=== PATIENT | male | born 1955 | race Caucasian/White ===

== ENCOUNTER 2016-04-14 16:54 | Emergency (ER) | payer BC ==
[~2016-04-14] VITALS: Ht 180.3 cm; Wt 84.9 kg
[~2016-04-14 16:54] MED LIST: LISI-461 PO; PRLSR20 PO
[2016-04-14 17:00] VITALS: TEMP 36.8; Ht 180.3 cm; Wt 84.9 kg
[2016-04-14] MEDS ORDERED: SODIUM CHLORIDE 0.9% 500ML 500 ML IV STA (17:16)
[2016-04-14] MEDS ORDERED: COEN1CAP17 PO (17:19)
[2016-04-14] MEDS ORDERED: LPT/20 PO (17:19)
[2016-04-14] MEDS ORDERED: ASPI81TA28 PO (17:19)
--- NOTE | 2016-04-14 17:31 | EMERGENCY ROOM VISIT NOTE ---
History Report prepared by Shahida: Thai Lopez Under the Supervision of: Dr. Armando Hayes D.O. First contact with patient: 17:04 Chief Complaint: HYPERTENSION Stated Complaint: HIGH BLOOD PRESSURE,HEADACHE,HEAVY CHEST History of Present Illness The patient is a 61 year old male who presents to the Emergency Room with complaints of sudden hypertension beginning several hours prior to arrival. He currently rates his discomfort as a 3/10 in severity. The patient associates left sided chest pain, worsening headache, intermittent left elbow pain, bilateral arm weakness, intermittent pain in the back of his left leg, and lightheadedness with today's symptoms. The patient notes the chest pain began last evening, and worsens with pushing on it. Pain does not radiate anywhere else. The pain is on his left lateral chest wall. No shortness of breath with this pain. He states the headache began this morning and is located in his forehead and back of his neck. The patient notes his left elbow pain began around 1 PM, and worsens when lifted, such as driving or when flexing his arm. He states he took his blood pressure today at home on his wrist, and it was "200 -something over 100-something." The patient notes he has a history of hypertension but has been off of his medication for a year. He states he is a smoker, and has a history of hyperlipidemia. The patient denies previous heart disease and is unsure of his family history due to being adopted. He states he has not contacted his doctor about his symptoms. The patient denies recent trauma, twisting or turning abnormally, and denies worsening symptoms with changing positions. Pt denies change in vision, coughing up blood, recent surgeries, history of cancer, fevers, shortness of breath, nausea, vomiting, diarrhea, pain with urination, and melena. Source of History: patient Onset: several hours [employer]PRESENT[employer]IVE Position: other (global) Symptom Intensity: 3/10 Quality: other (hypertension) Timing: other (sudden) Associated Symptoms: + chest pain (left sided), + headache (worsening), + weakness (bilateral arms) Note: Associated symptoms: intermittent left elbow pain, intermittent pain in the back of his left leg, lightheadedness Review of Systems See HPI for pertinent positives & negatives. A total of 10 systems reviewed and were otherwise negative. Past Medical & Surgical Medical Problems: (1) Hyperlipidemia (2) Hypertension Family History Patient reports no known family medical history. Social History Smoking Status: Current Every Day Smoker Alcohol Use: occasionally Marital Status: Occupation Status: employed Current/Historical Medications Scheduled Aspirin (Aspirin Ec), 81 MG PO DAILY Atorvastatin (Atorvastatin Calcium), 20 MG PO HS Coenzyme Q10 (Ubidecarenone) (Co Q 10), 200 MG PO DAILY Omeprazole (Prilosec), 20 MG PO DAILY Allergies Coded Allergies: Tetanus Toxoid (Unverified Allergy, Severe, ANAPHYLAXIS, 04/14/16) Physical Exam Vital Signs Date Time Temp Pulse Resp B/P Pulse Ox O2 Delivery O2 Flow Rate FiO2 04/14/16 20:11 52 18 143/83 96 04/14/16 18:51 71 18 139/80 96 Room Air 04/14/16 17:55 63 123/74 99 62 149/88 135/79 04/14/16 17:48 55 04/14/16 17:36 97 Room Air 04/14/16 17:36 97 Room Air 04/14/16 17:00 36.8 63 20 151/93 96 Room Air Physical Exam GENERAL: siting up in bed, no acute distress, non-toxic EYE EXAM: normal conjunctiva, PERRL and EOM's intact OROPHARYNX: no exudate, no erythema, lips, buccal mucosa, and tongue normal and mucous membranes are moist NECK: supple, no nuchal rigidity, no adenopathy, non-tender LUNGS: Clear to auscultation. Normal chest wall mechanics HEART: no murmurs, S1 normal and S2 normal CHEST: Left chest wall tenderness in the mid axillary line. ABDOMEN: abdomen soft, non-tender, normo-active bowel sounds, no masses, no rebound or guarding. BACK: Back is symmetrical on inspection and there is no deformity, no midline tenderness, no CVA tenderness. SKIN: no rashes and no bruising UPPER EXTREMITIES: Left upper extremity has acute reproducible tenderness in the antecubital fossa, worsened with flexion. Rapid alternating movement of upper extremities are intact. Radial pulses equal bilaterally. LOWER EXTREMITIES: No pitting edema. Calves are equal bilaterally. Ambulates without difficulty. NEURO EXAM: Normal sensorium, cranial nerves II-XII intact, normal speech, no weakness of arms, no weakness of legs. No drift. Finger to nose intact. Gross sensation intact. Medical Decision & Procedures ER Provider Diagnostic Interpretation: Xray results per the radiologist and my interpretation. Other results have been interpreted by the radiologist and reviewed by me. SINGLE VIEW CHEST CLINICAL HISTORY: Weakness. FINDINGS: An AP, portable, upright chest radiograph is compared to study dated 05/04/2014. The heart is top normal for projection. There is pulmonary vascular congestion. After carotid calcification is noted in the thoracic aorta. Findings suggest emphysema. No airspace consolidation, large pleural effusion, or pneumothorax is seen. The skeletal structures are osteopenic. The bony thorax is grossly intact. IMPRESSION: 1. There is evidence of congestive failure. 2. Findings suggest emphysema. No airspace consolidation or large pleural effusion is identified. Electronically signed by: Luis Almeida M.D. 04/14/2016 5:[address] SCAN OF THE BRAIN WITHOUT IV CONTRAST CLINICAL HISTORY: Generalized weakness. COMPARISON STUDY: CT the brain dated 06/19/2013. TECHNIQUE: Unenhanced axial CT scan of the brain is performed from the vertex to the skull base. Automated dose control exposure was utilized. CT DOSE: 614.27 mGy.cm FINDINGS: Brain parenchyma: The brain parenchyma is normal in appearance. There is no hemorrhage, mass effect, or evidence of acute territorial ischemia by CT criteria. Zuluaga-white matter is preserved. No extra-axial fluid collection is seen. Ventricles, sulci, cisterns: Normal in configuration. Intracranial vasculature: The visualized intracranial vasculature at the skull base is normal in appearance. Calvarium: Unremarkable. Sinuses and mastoids: The visualized paranasal sinuses are clear. A small osteoma is incidentally noted in a left ethmoid sinus. The mastoid air cells are well pneumatized. Orbits: The bony orbits are grossly intact. IMPRESSION: There is no hemorrhage, mass effect, or evidence of acute territorial ischemia by CT criteria. Electronically signed by: Luis Almeida M.D. 04/14/2016 6:[address] ANGIOGRAM OF THE CHEST CLINICAL HISTORY: Left-sided chest pain. COMPARISON STUDY: Chest x-ray dated 04/14/2016. TECHNIQUE: Following the IV administration of 94 cc of Optiray 320, CT angiogram of the chest was performed from the upper abdomen to the thoracic inlet utilizing the pulmonary embolus protocol. Images are reviewed in the axial, sagittal, and coronal planes. 3-D MIPS images are created and assessed. IV contrast was administered without complication. CT DOSE: 528.20 mGycm FINDINGS: Thyroid: Imaged portions of the thyroid gland are normal in size and attenuation. Thoracic aorta: The thoracic aorta is normal in caliber and demonstrates standard 3-vessel arch anatomy. No aneurysm or dissection is seen. Pulmonary vasculature: The pulmonary trunk is normal in caliber. There are no filling defects identified in main, lobar, or segmental pulmonary branches to suggest pulmonary embolus. Heart: The heart is normal in size and configuration, and without pericardial effusion. Lungs and pleural spaces: There are moderate emphysematous changes. No airspace consolidation or pleural effusion is seen. Dependent atelectasis is observed. The trachea and central airways are clear. There are 2 nodular foci of pleural thickening in the right upper lobe along the major fissure measuring up to 7 mm seen on image #117 and #110. A 4 mm left lower lobe pulmonary nodule is seen on image #117. Mediastinum: There is no mediastinal lymphadenopathy. Nano: Clear. Axillae: There is no axillary lymphadenopathy. Upper abdomen: Partially visualized upper abdominal viscera is within normal limits. Skeletal structures: No lytic or blastic bony lesions are seen. Soft tissues: A 2.2 cm sebaceous cyst is noted in the right upper back. IMPRESSION: 1. There is no evidence of pulmonary embolus in the main, lobar, or segmental pulmonary arteries. 2. Emphysema. 3. There is no airspace consolidation or pleural effusion. 4. Pulmonary pleural-based nodules measure up to 7 mm. These can be followed as per the Fleischner criteria. Please refer to below summary of Fleischner criteria recommendations for follow-up of incidental CT nodules (Susi Barrett, Guidelines for management of small pulmonary nodules detected on CT scans: A statement from the Fleischner Society, Radiology 237: [phone].) Low Risk Patient: Minimal or no smoking or other known risk factors for malignancy <=4 mm: No follow-up needed. >4-6 mm: Initial follow-up CT at 12 months; if unchanged, no further follow-up. >6-8 mm: Initial follow-up CT at 6-12 months then at 18-24 months if no change. >8 mm: Follow-up CT at \\R\\3, 9, 24 months, or PET and/or biopsy. High Risk Patient: History of smoking or other known risk factors <=4 mm: Follow-up at 12 months; if unchanged, no further follow-up. >4-6 mm: Initial follow-up CT at 6-12 months then at 18-24 months if no change. >6-8 mm: Initial follow-up CT at 3-6 months then at 9-12 and 24 months if no change. >8 mm: Same as low risk patient. Note: Nodule size measured as average of length and width. Ground glass or partly solid nodules may require longer follow-up to exclude indolent adenocarcinoma. Electronically signed by: Luis Almeida M.D. 04/14/2016 7:27 PM Laboratory Results 04/14/16 17:40 Red Blood Count 5.44, Mean Corpuscular Volume 81.3, Mean Corpuscular Hemoglobin 29.4, Mean Corpuscular Hemoglobin Concent 36.2, Mean Platelet Volume 10.1, Neutrophils (%) (Auto) 79.0, Lymphocytes (%) (Auto) 12.8, Monocytes (%) (Auto) 6.8, Eosinophils (%) (Auto) 0.6, Basophils (%) (Auto) 0.3, Neutrophils # (Auto) 7.98, Lymphocytes # (Auto) 1.29, Monocytes # (Auto) 0.69, Eosinophils # (Auto) 0.06, Basophils # (Auto) 0.03 04/14/16 17:40 Test 04/14/16 17:40 04/14/16 18:10 White Blood Count 10.10 K/uL (4.8-10.8) Red Blood Count 5.44 M/uL (4.7-6.1) Hemoglobin 16.0 g/dL (14.0-18.0) Hematocrit 44.2 % (42-52) Mean Corpuscular Volume 81.3 fL (80-100) Mean Corpuscular Hemoglobin 29.4 pg (25-34) Mean Corpuscular Hemoglobin Concent 36.2 g/dl (32-36) Platelet Count 130 K/uL (130-400) Mean Platelet Volume 10.1 fL (7.4-10.4) Neutrophils (%) (Auto) 79.0 % Lymphocytes (%) (Auto) 12.8 % Monocytes (%) (Auto) 6.8 % Eosinophils (%) (Auto) 0.6 % Basophils (%) (Auto) 0.3 % Neutrophils # (Auto) 7.98 K/uL (1.4-6.5) Lymphocytes # (Auto) 1.29 K/uL (1.2-3.4) Monocytes # (Auto) 0.69 K/uL (0.11-0.59) Eosinophils # (Auto) 0.06 K/uL (0-0.5) Basophils # (Auto) 0.03 K/uL (0-0.2) RDW Standard Deviation 38.2 fL (36.4-46.3) RDW Coefficient of Variation 12.8 % (11.5-14.5) Immature Granulocyte % (Auto) 0.5 % Immature Granulocyte # (Auto) 0.05 K/uL (0.00-0.02) D-Dimer 570 ug/L FEU (0-500) Anion Gap 14.0 mmol/L (3-11) Est Creatinine Clear Calc Drug Dose 73.2 ml/min Estimated GFR () 82.4 Estimated GFR (Non- 71.1 BUN/Creatinine Ratio 18.4 (10-20) Bedside Glucose 84 mg/dl (70-99) Calcium Level 9.4 mg/dl (8.5-10.1) Total Bilirubin 0.5 mg/dl (0.2-1) Direct Bilirubin 0.1 mg/dl (0-0.2) Aspartate Amino Transf (AST/SGOT) 15 U/L (15-37) Alanine Aminotransferase (ALT/SGPT) 28 U/L (12-78) Alkaline Phosphatase 139 U/L (45-117) Troponin I < 0.015 ng/ml (0-0.045) Total Protein 6.9 gm/dl (6.4-8.2) Albumin 3.9 gm/dl (3.4-5.0) Urine Color YELLOW Urine Appearance CLEAR (CLEAR) Urine pH 5.5 (4.5-7.5) Urine Specific [place] 1.003 (1.000-1.030) Urine Protein NEG (NEG) Urine Glucose (UA) NEG (NEG) Urine Ketones NEG (NEG) Urine Occult Blood NEG (NEG) Urine Nitrite NEG (NEG) Urine Bilirubin NEG (NEG) Urine Urobilinogen NEG (NEG) Urine Leukocyte Esterase NEG (NEG) Laboratory results per my review. Medications Administered Medications (Trade) Dose Ordered Sig/Rick Route Start Time Stop Time Status Last Admin Dose Admin Sodium Chloride (Nss 500ml) 500 ml @ 999 mls/hr Q31M STAT IV 04/14/16 17:16 04/14/16 17:46 DC 04/14/16 17:16 999 MLS/HR ECG Indication: chest pain Rate (beats per minute): 57 Rhythm: sinus bradycardia Findings: left axis deviation, other (Poor baseline in the lateral) Comparison ECG Date: 06/11/2015 Change: no significant change ED Course ED COURSE: Vital signs were reviewed and showed hypertension. The patients medical record was reviewed The above diagnostic studies were performed and reviewed. ED treatments and interventions as stated above. 5: The patient was evaluated in room C7. A complete history and physical examination was performed. 1715: Ordered Sodium Chloride 500 ml @ 999 mls/hr IV. 1744: Reevaluated the patient at this time, and he is doing well. 1921: Reevaluated the patient at this time, and he is resting comfortably. 1951: Upon reevaluation, the patient is doing well.I discussed my findings with the patient and he understands and agrees with the treatment plan. Based on the patients age, coexisting illnesses, exam and lab findings the decision to treat as an outpatient was made. The patient remained stable while under my care. The patient appeared well at the time of discharge. Medical Decision Differenital diagnosis includes etiologies such as benign positional vertigo, dehydration, hypovolemia, anemia, tumor, infection, hypoglycemia, electrolyte abnormalities, cardiac sources, intracerebral event, toxicologic, neurologic, as well as others were entertained. Patient is a 61-year-old male who presents the ER for hypertension. He is checked his blood pressures at home and notes a systolic blood pressures were in the 200s. Patient also felt a little lightheaded and does have a sharp right -sided chest pain which is worse when he pushes on it. On exam he is clearly reproducible left-sided chest wall tenderness along with left antecubital tenderness on palpation. Labs including CBC and BMP are unremarkable. BMP along with LFTs and troponin were negative. Pain has been present for greater than 8 hours. It is clearly reproducible. EKG is unremarkable. This is not cardiac chest pain. D-dimer was positive inconstantly CT PE was performed. CT PE was negative for any acute PEs. It did show pulmonary nodule which I stressed the importance of following up within 6-9 months. Systolic blood pressure were in the 140s to 120s without intervention. Patient remained asymptomatic. He was given a bolus normal saline. Patient was discharged follow-up with his primary care doctor for his hypertension and pulmonary nodules. Discussed with Pt concerning signs and symptoms to watch out for. Pt was instructed to follow up with their PCP and discussed with the patient their option to return to the ED at anytime for persistent or worsening symptoms. The appropriate anticipatory guidance and out-patient management, including indications for return to the emergency department, were explained at length to the patient and understood. Impression Primary Impression: Hypertension Additional Impression: Pulmonary nodule Scribe Attestation The scribe's documentation has been prepared under my direction and personally reviewed by me in its entirety. I confirm that the note above accurately reflects all work, treatment, procedures, and medical decision making performed by me. Departure Information Dispostion Home / Self-Care Referrals Omar Paz M.D. (PCP) Forms HOME CARE DOCUMENTATION FORM, IMPORTANT VISIT INFORMATION, WORK / SCHOOL INSTRUCTIONS Patient Instructions ED Hypertension Poss, My [facility] Additional Instructions Please follow up with your primary care doctor with in the next 24 hours. Any worsening of your symptoms, please return to the ED immediately. This includes confusion, change in vision, weakness in your arms or legs, chest pain, shortness of breath or any other concerning signs or symptoms from your standpoint. You were found to have a lung nodule 7 mm. This must be followed up by your primary care doctor at 6 months. So following 6 months he will need a repeat CAT scan of your chest performed. Problem Qualifiers Primary Impression: Hypertension Hypertension type: essential hypertension Qualified Codes: I10 - Essential ( primary) hypertension
[2016-04-14 17:36] VITALS: O2SAT 97
--- NOTE | 2016-04-14 17:46 | DIAGNOSTIC IMAGING REPORT ---
SINGLE VIEW CHEST CLINICAL HISTORY: Weakness. FINDINGS: An AP, portable, upright chest radiograph is compared to study dated 05/04/2014. The heart is top normal for projection. There is pulmonary vascular congestion. After carotid calcification is noted in the thoracic aorta. Findings suggest emphysema. No airspace consolidation, large pleural effusion, or pneumothorax is seen. The skeletal structures are osteopenic. The bony thorax is grossly intact. IMPRESSION: 1. There is evidence of congestive failure. 2. Findings suggest emphysema. No airspace consolidation or large pleural effusion is identified. Electronically signed by: Luis Almeida M.D. 04/14/2016 5:44 PM Dictated Date/Time: 04/14/2016 5:43 PM
[2016-04-14 18:16] LABS: BASO % 0.3 %; BASO ABS # 0.03 K/uL (0-0.2); COMPLETE YES; EOS % 0.6 %; HEMATOCRIT 44.2 % (42-52); IG% 0.5 %; LYMPH % 12.8 %; LYMPH ABS # 1.29 K/uL (1.2-3.4); MEAN CELL VOLUME 81.3 fL (80-100); MEAN CORPUSCULAR HEMOGLOBIN 29.4 pg (25-34); MEAN CORPUSCULAR HGB CONC 36.2 g/dl (32-36); MEAN PLATELET VOLUME 10.1 fL (7.4-10.4); MONO % 6.8 %; PLATELET COUNT 130 K/uL (130-400); RED BLOOD COUNT 5.44 M/uL (4.7-6.1)
--- NOTE | 2016-04-14 18:24 | DIAGNOSTIC IMAGING REPORT ---
CT SCAN OF THE BRAIN WITHOUT IV CONTRAST CLINICAL HISTORY: Generalized weakness. COMPARISON STUDY: CT the brain dated 06/19/2013. TECHNIQUE: Unenhanced axial CT scan of the brain is performed from the vertex to the skull base. Automated dose control exposure was utilized. CT DOSE: 614.27 mGy.cm FINDINGS: Brain parenchyma: The brain parenchyma is normal in appearance. There is no hemorrhage, mass effect, or evidence of acute territorial ischemia by CT criteria. Zuluaga-white matter is preserved. No extra-axial fluid collection is seen. Ventricles, sulci, cisterns: Normal in configuration. Intracranial vasculature: The visualized intracranial vasculature at the skull base is normal in appearance. Calvarium: Unremarkable. Sinuses and mastoids: The visualized paranasal sinuses are clear. A small osteoma is incidentally noted in a left ethmoid sinus. The mastoid air cells are well pneumatized. Orbits: The bony orbits are grossly intact. IMPRESSION: There is no hemorrhage, mass effect, or evidence of acute territorial ischemia by CT criteria. Electronically signed by: Luis Almeida M.D. 04/14/2016 6:22 PM Dictated Date/Time: 04/14/2016 6:20 PM
[2016-04-14 18:28] LABS: URINE APPEARANCE CLEAR (CLEAR); URINE BILIRUBIN NEG (NEG); URINE COLOR YELLOW; URINE NITRITE NEG (NEG); URINE PH 5.5 (4.5-7.5); URINE SPECIFIC GRAVITY 1.003 (1.000-1.030); UROBILINOGEN NEG (NEG)
[2016-04-14 18:36] LABS: MANUAL MICROSCOPIC REQUIRED? NO; REVIEW REQ? NO
[2016-04-14 18:37] LABS: ALT/SGPT 28 U/L (12-78); BLOOD UREA NITROGEN 20 mg/dl (7-18); BUN/CREATININE RATIO 18.4 (10-20); CALCIUM 9.4 mg/dl (8.5-10.1); CARBON DIOXIDE 21 mmol/L (21-32); CHLORIDE 107 mmol/L (98-107); GLUCOSE 87 mg/dl (70-99); POTASSIUM 3.6 mmol/L (3.5-5.1); SODIUM 142 mmol/L (136-145)
[2016-04-14 18:42] LABS: ALKALINE PHOSPHATASE 139 U/L (45-117); AST/SGOT 15 U/L (15-37)
[2016-04-14] MEDS ORDERED: OPTIRAY 320 IV PRN (19:00)
--- NOTE | 2016-04-14 19:29 | DIAGNOSTIC IMAGING REPORT ---
CT ANGIOGRAM OF THE CHEST CLINICAL HISTORY: Left-sided chest pain. COMPARISON STUDY: Chest x-ray dated 04/14/2016. TECHNIQUE: Following the IV administration of 94 cc of Optiray 320, CT angiogram of the chest was performed from the upper abdomen to the thoracic inlet utilizing the pulmonary embolus protocol. Images are reviewed in the axial, sagittal, and coronal planes. 3-D MIPS images are created and assessed. IV contrast was administered without complication. CT DOSE: 528.20 mGycm FINDINGS: Thyroid: Imaged portions of the thyroid gland are normal in size and attenuation. Thoracic aorta: The thoracic aorta is normal in caliber and demonstrates standard 3-vessel arch anatomy. No aneurysm or dissection is seen. Pulmonary vasculature: The pulmonary trunk is normal in caliber. There are no filling defects identified in main, lobar, or segmental pulmonary branches to suggest pulmonary embolus. Heart: The heart is normal in size and configuration, and without pericardial effusion. Lungs and pleural spaces: There are moderate emphysematous changes. No airspace consolidation or pleural effusion is seen. Dependent atelectasis is observed. The trachea and central airways are clear. There are 2 nodular foci of pleural thickening in the right upper lobe along the major fissure measuring up to 7 mm seen on image #117 and #110. A 4 mm left lower lobe pulmonary nodule is seen on image #117. Mediastinum: There is no mediastinal lymphadenopathy. Nano: Clear. Axillae: There is no axillary lymphadenopathy. Upper abdomen: Partially visualized upper abdominal viscera is within normal limits. Skeletal structures: No lytic or blastic bony lesions are seen. Soft tissues: A 2.2 cm sebaceous cyst is noted in the right upper back. IMPRESSION: 1. There is no evidence of pulmonary embolus in the main, lobar, or segmental pulmonary arteries. 2. Emphysema. 3. There is no airspace consolidation or pleural effusion. 4. Pulmonary pleural-based nodules measure up to 7 mm. These can be followed as per the Fleischner criteria. Please refer to below summary of Fleischner criteria recommendations for follow-up of incidental CT nodules (Susi Barrett Guidelines for management of small pulmonary nodules detected on CT scans: A statement from the Fleischner Society, Radiology 237: [phone].) Low Risk Patient: Minimal or no smoking or other known risk factors for malignancy <=4 mm: No follow-up needed. >4-6 mm: Initial follow-up CT at 12 months; if unchanged, no further follow-up. >6-8 mm: Initial follow-up CT at 6-12 months then at 18-24 months if no change. >8 mm: Follow-up CT at \R\3, 9, 24 months, or PET and/or biopsy. High Risk Patient: History of smoking or other known risk factors <=4 mm: Follow-up at 12 months; if unchanged, no further follow-up. >4-6 mm: Initial follow-up CT at 6-12 months then at 18-24 months if no change. >6-8 mm: Initial follow-up CT at 3-6 months then at 9-12 and 24 months if no change. >8 mm: Same as low risk patient. Note: Nodule size measured as average of length and width. Ground glass or partly solid nodules may require longer follow-up to exclude indolent adenocarcinoma. Electronically signed by: Luis Almeida M.D. 04/14/2016 7:27 PM Dictated Date/Time: 04/14/2016 7:15 PM
[2016-04-14 20:11] VITALS: BP 143/83; PULSE 52; O2SAT 96
== END 2016-04-14 20:12 | disposition home or self-care (01) ==
LOC: C.EDB 16:56 → C.EDC 20:12
DX: I10 Essential (primary) hypertension (principal); R91.1 Solitary pulmonary nodule; R00.0 Tachycardia, unspecified; R00.1 Bradycardia, unspecified; E78.5 Hyperlipidemia, unspecified; F17.200 Nicotine dependence, unspecified, uncomplicated; Z79.82 Long term (current) use of aspirin; Z79.899 Other long term (current) drug therapy; Z88.8 Allergy status to other drugs, medicaments and biological substances

== ENCOUNTER → 2016-04-30 | Outpatient (CLI) | payer BC ==
[~2016-04-30] MED LIST changes: +ASPI81TA28 PO; +COEN1CAP17 PO; -LISI-461 PO; +LPT/20 PO
--- NOTE | 2016-05-04 19:06 | PULMONARY FUNCTION TEST ---
INTERPRETATION: The spirometry reveals mild to moderate obstruction with no significant change in the air flow with the use of albuterol. The lung volumes reveal an elevated residual volume suggesting air trapping in the diffusion capacity when corrected for alveolar volume is increased.
== END | disposition home or self-care (01) ==
LOC: C.RC 10:27
PROVIDERS: ATTEND Nurse Practitioner Family
DX: R06.02 Shortness of breath (principal); R91.8 Other nonspecific abnormal finding of lung field; R07.9 Chest pain, unspecified; Z72.0 Tobacco use

== ENCOUNTER → 2016-08-27 | Outpatient (CLI) | payer BC ==
--- NOTE | 2016-08-27 10:55 | DIAGNOSTIC IMAGING REPORT ---
CT OF THE CHEST WITHOUT IV CONTRAST CLINICAL HISTORY: MULTIPLE PULMONARY NODULES COMPARISON STUDY: 04/14/2016 CT DOSE: 346.51 mGy.cm TECHNIQUE: CT of the thorax was performed from the thoracic inlet to the lung bases. Images are reviewed in the axial, sagittal, and coronal planes. IV contrast was not administered for this examination. FINDINGS: Thyroid: Imaged portions of the thyroid gland are normal in appearance. Thoracic aorta: The thoracic aorta is normal in course and caliber, noting standard 3 vessel arch anatomy. Heart: The heart is normal in size and configuration, without pericardial effusion. Lungs and pleural spaces: No pleural effusions are visualized. There is underlying pulmonary emphysema. There are apical blebs most pronounced on the left. There are multiple bilateral subcentimeter solid pulmonary nodules, the largest of which remains a 7 x 4 mm perifissural right lower lobe nodule. Mediastinum: There is no mediastinal lymphadenopathy. Nano: Clear. Axilla: Clear. Upper abdomen: Partially visualized upper abdominal viscera is within normal limits. There is a stable 2 cm subcutaneous nodule posterior to the right scapula, likely representing a sebaceous cyst Skeletal structures: There are no lytic or blastic osseous lesions. IMPRESSION: 1. Pulmonary emphysema 2. No evidence of focal pulmonary consolidation 3. Stable multiple solid bilateral pulmonary nodules, the largest of which measures 7 x 4 mm. In a high risk patient, a 12 month follow-up CT scan could be considered. In a low risk patient, no follow-up is considered necessary. Please refer to below summary of Fleischner criteria recommendations for follow-up of incidental CT nodules (Susi Barrett, Guidelines for management of small pulmonary nodules detected on CT scans: A statement from the Fleischner Society, Radiology 237: [phone].) SOLID NODULES Solitary nodule size: <6 mm * low risk patients: no follow-up needed * high risk patients: optional CT at 12 months Solitary nodule size: 6-8 mm * low risk patients: follow-up at 6-12 months, then consider further follow-up at 18-24 months * high risk patients: initial follow-up CT at 6-12 months and then at 18-24 months if no change Solitary nodule size: >8 mm * either low or high risk patients - consider follow-up CT at 3 months, and/or CT-PET, and/or biopsy Multiple nodules size: <6 mm * low risk patients: no routine follow-up * high risk patients: optional CT at 12 months Multiple nodules size: 6-8 mm * low risk patients: follow-up at 3-6 months, then consider further follow-up at 18-24 months * high risk patients: follow-up at 3-6 months, then at 18-24 months if no change Multiple nodules size: >8 mm * low risk patients: follow-up at 3-6 months, then consider further follow-up at 18-24 months * high risk patients: follow-up at 3-6 months, then at 18-24 months if no change Note: newly detected indeterminate nodule in persons 35 years of age or older. * low risk patients: minimal or absent history of smoking and/or other known risk factors * high risk patients: history of smoking or of other known risk factors (e.g. first degree relative with lung cancer, or exposure to asbestos, radon, uranium) * if a nodule up to 8 mm is partly solid or is ground glass further follow-up is required after 24 months to exclude possible slow growing adenocarcinoma ([place]) SUBSOLID NODULES Solitary pure ground-glass nodule * nodule size <6 mm - no CT follow-up required * nodule size >=6 mm - follow-up CT at 6-12 months, then every 2 years until 5 years Solitary part-solid nodule * nodule size <6 mm - no CT follow-up required * nodule size >=6 mm - follow-up CT at 3-6 months. If unchanged, and solid component remains <6 mm, then annual follow-up for 5 years Multiple subsolid nodules * nodule size <6 mm - follow-up CT at 3-6 months, consider further follow-up at 2 and 4 years if stable * nodule size >=6 mm - follow-up CT at 3-6 months, subsequent management based on the most suspicious nodule(s) Electronically signed by: Dionicio Larose M.D. 08/27/2016 10:54 AM Dictated Date/Time: 08/27/2016 10:46 AM
== END | disposition home or self-care (01) ==
LOC: C.CTS 10:26
PROVIDERS: ATTEND Physician Assistant
DX: R91.8 Other nonspecific abnormal finding of lung field (principal); J43.9 Emphysema, unspecified

== ENCOUNTER → 2017-02-03 | Outpatient (CLI) | payer BC ==
--- NOTE | 2017-02-03 16:18 | DIAGNOSTIC IMAGING REPORT ---
CHEST 2 VIEWS ROUTINE HISTORY: 62 years-old Male R10.13,R22.9,R91.8 acute sternal pain with cough and history of lung nodules COMPARISON: Chest radiograph 04/14/2016, chest CT 08/27/2016 TECHNIQUE: PA and lateral views of the chest FINDINGS: Cardiomediastinal and hilar silhouettes are within normal limits. There is no pneumothorax, pleural effusion, focal airspace consolidation or overt pulmonary edema. Lungs are hyperinflated and hyperlucent compatible with emphysema. Degenerative changes are noted throughout the spine and shoulders. IMPRESSION: Emphysema without acute cardiopulmonary process. The above report was generated using voice recognition software. It may contain grammatical, syntax or spelling errors. Electronically signed by: Ton Bradley M.D. 02/03/2017 4:17 PM Dictated Date/Time: 02/03/2017 4:15 PM
== END | disposition home or self-care (01) ==
LOC: C.RAD1850 16:00
PROVIDERS: ATTEND Nurse Practitioner Family
DX: R10.13 Epigastric pain (principal); R91.8 Other nonspecific abnormal finding of lung field; J43.9 Emphysema, unspecified

== ENCOUNTER → 2017-02-05 | Outpatient (CLI) | payer BC ==
--- NOTE | 2017-02-05 14:53 | DIAGNOSTIC IMAGING REPORT ---
LEFT HAND 3 VIEWS HISTORY: LEFT HAND PAIN COMPARISON: None. FINDINGS: There is no fracture or dislocation. Soft tissues are unremarkable. Focal areas of cystic change within the lunate which may be due to chronic impaction. There is also a 5 mm lucent lesion within the base of the middle phalanx of the middle finger. This statistically represents a benign enchondroma. IMPRESSION: 1. No fracture or dislocation within the left hand. 2. A 5 mm lucent lesion within the middle phalanx of the middle finger likely represents an enchondroma. 3. Cystic change within the lunate may be due to chronic ulnar impaction. Electronically signed by: Sudarshan Kearns M.D. 02/05/2017 2:52 PM Dictated Date/Time: 02/05/2017 2:49 PM
== END | disposition home or self-care (01) ==
LOC: C.RDSM 17:19
PROVIDERS: ATTEND Family Medicine
DX: M79.642 Pain in left hand (principal)

== ENCOUNTER 2017-04-15 12:27 | Emergency (ER) | payer BC, OTHER ==
[~2017-04-15] VITALS: Ht 180.3 cm; Wt 86.6 kg
[~2017-04-15 12:27] MED LIST changes: -LPT/20 PO; +LPT20 PO
[2017-04-15 12:33] VITALS: O2SAT 97; Ht 180.3 cm; Wt 86.6 kg
[2017-04-15 13:00] LABS: HEMATOCRIT 47.8 % (42-52); HEMOGLOBIN 16.6 g/dL (14.0-18.0); MEAN CELL VOLUME 85.2 fL (80-100); MEAN CORPUSCULAR HEMOGLOBIN 29.6 pg (25-34); MEAN CORPUSCULAR HGB CONC 34.7 g/dl (32-36); MEAN PLATELET VOLUME 10.8 fL (7.4-10.4); PLATELET COUNT 136 K/uL (130-400); RED CELL DISTRIBUTION WIDTH CV 13.8 % (11.5-14.5); RED CELL DISTRIBUTION WIDTH SD 42.3 fL (36.4-46.3); WHITE BLOOD COUNT 7.68 K/uL (4.8-10.8)
[2017-04-15 13:07] LABS: INR 0.9 (0.9-1.1); PTT PATIENT 27.8 SECONDS (21.0-31.0)
[2017-04-15 13:15] LABS: ALBUMIN 4.1 gm/dl (3.4-5.0); CREATININE 1.15 mg/dl (0.60-1.40)
[2017-04-15 13:20] LABS: CKMB 2.8 ng/ml (0.5-3.6); TOTAL PROTEIN 7.5 gm/dl (6.4-8.2)
--- NOTE | 2017-04-15 13:24 | EMERGENCY ROOM VISIT NOTE ---
History Report prepared by Shahida: Anant Uriostegui Under the Supervision of: Dr. Yusuf Donaldson M.D. First contact with patient: 13:05 Chief Complaint: CHEST PAIN Stated Complaint: CHEST PAIN Nursing Triage Summary: pt presents to ed via [facility] from pcp office. pt reports he has had chest pain since yesterday and "felt funny all night i wasn't sure if i was going to wake up or not." pt reports left shoulder and arm numbness. pt reports at present his mid chest feels "sore." pt recieved 324mg asa en route. History of Present Illness The patient is a 62 year old male who presents to the Emergency Room with complaints of upper chest discomfort that began one day prior to arrival. The patient notes that he visited with his primary care physician today because he was feeling "funny" and generally unwell. He was referred to the Emergency Room for further management. He describes his symptoms yesterday as "tingling all over," weakness, and dizziness. He notes that his chest discomfort felt like a "tightness." He is experiencing this tightness today. His symptoms are worsened by walking around, and improved by sitting and relaxing. He states that he has had several episodes of this tingling and chest tightness over the past year. He came to the ED in March or 2016 for similar symptoms and had a follow up Stress Test performed. He has never been diagnosed with any cardiac disease. The patient did have some back pain yesterday, and notes some intermittent shortness of breath. He shoveled his drive way yesterday and did not have any chest pain or SOB while he was active. He claims that he has some issues beginning to void, but this is not unusual. He was on Flomax in the past. He has no history of hypertension. He denies any further LOC, headache, fevers, chills, diaphoresis, visual changes, neck pain, nausea, vomiting, abdominal pain, melena, hematochezia, urinary symptoms, lymphadenopathy, rash, or other complaints. Source of History: patient Onset: One day [employer] Position: chest Quality: other ("tigthness") Associated Symptoms: + back pain Note: "tingling" Review of Systems See HPI for pertinent positives and negatives. A total of ten systems were reviewed and were otherwise negative. Past Medical & Surgical Medical Problems: (1) Hyperlipidemia (2) Hypertension Family History Patient reports no known family medical history. Social History Smoking Status: Former Smoker Alcohol Use: occasionally Marital Status: Occupation Status: employed Current/Historical Medications Scheduled Aspirin (Aspirin Ec), 81 MG PO DAILY Atorvastatin (Lipitor), 20 MG PO HS Coenzyme Q10 (Ubidecarenone) (Co Q 10), 200 MG PO DAILY Omeprazole (Prilosec), 20 MG PO DAILY Allergies Coded Allergies: Tetanus Toxoid (Unverified Allergy, Severe, ANAPHYLAXIS, 04/15/17) Physical Exam Vital Signs Date Time Temp Pulse Resp B/P (MAP) Pulse Ox O2 Delivery O2 Flow Rate FiO2 04/15/17 17:17 36.9 54 17 122/74 96 04/15/17 15:32 54 17 96 04/15/17 15:30 122/74 04/15/17 15:27 52 17 96 04/15/17 15:22 50 17 96 04/15/17 15:17 50 17 96 04/15/17 15:12 51 19 95 04/15/17 15:07 56 15 96 04/15/17 15:04 49 16 128/67 95 Room Air 04/15/17 15:02 52 17 96 04/15/17 15:00 128/67 04/15/17 14:57 53 20 96 04/15/17 14:52 60 16 95 04/15/17 14:47 52 19 96 04/15/17 14:42 50 17 96 04/15/17 14:37 51 18 96 04/15/17 14:32 53 16 97 04/15/17 14:30 127/75 04/15/17 14:27 51 17 96 04/15/17 14:22 51 17 95 04/15/17 14:17 56 16 96 04/15/17 14:12 49 13 95 04/15/17 14:07 46 10 96 04/15/17 14:04 49 16 117/75 96 Room Air 04/15/17 14:02 48 13 95 04/15/17 14:00 117/75 04/15/17 13:57 50 13 95 04/15/17 13:52 49 15 96 04/15/17 13:47 50 16 95 04/15/17 13:42 53 16 96 04/15/17 13:37 53 18 96 04/15/17 13:32 53 20 95 04/15/17 13:30 128/86 04/15/17 13:27 54 17 98 04/15/17 13:22 57 18 96 04/15/17 13:17 56 21 95 04/15/17 13:12 52 17 94 04/15/17 13:07 61 18 95 04/15/17 13:02 53 17 94 04/15/17 13:01 129/77 04/15/17 12:57 53 18 95 04/15/17 12:52 53 17 95 04/15/17 12:47 56 15 96 04/15/17 12:44 53 04/15/17 12:42 52 21 96 04/15/17 12:33 97 Room Air 04/15/17 12:33 159/78 04/15/17 12:33 36.9 57 16 154/83 97 Room Air Physical Exam GENERAL: Awake, alert, well-appearing, in no distress HENT: Normocephalic, atraumatic. Oropharynx unremarkable. EYES: Normal conjunctiva. Sclera non-icteric. NECK: Supple. No nuchal rigidity. FROM. No JVD. RESPIRATORY: Clear to auscultation. CARDIAC: There is TTP in the upper mid chest and over the left ribs. Regular rate, normal rhythm. Extremities warm and well perfused. Pulses equal. ABDOMEN: Soft, non-distended. Tenderness to palpation over the left ribs. No rebound or guarding. No masses. RECTAL: Deferred. MUSCULOSKELETAL: Chest examination reveals no tenderness. The back is symmetrical on inspection without obvious abnormality. There is no CVA tenderness to palpation. No joint edema. LOWER EXTREMITIES: Calves are equal size bilaterally and non-tender. No edema. No discoloration. NEURO: Normal sensorium. No sensory or motor deficits noted. SKIN: No rash or jaundice noted. Medical Decision & Procedures ER Provider Diagnostic Interpretation: Radiology results as stated below per my review and radiologist interpretation: CHEST ONE VIEW PORTABLE CLINICAL HISTORY: chest pain c03 dyspnea COMPARISON STUDY: 02/03/2017 FINDINGS: The bones soft tissues and hemidiaphragms are normal. The cardiomediastinal silhouette is normal. The lungs are clear. The pulmonary vasculature is normal. IMPRESSION: Negative chest. The above report was generated using voice recognition software. It may contain grammatical, syntax or spelling errors. Electronically signed by: Ender Pena M.D. 04/15/2017 1:40 PM Dictated Date/Time: 04/15/2017 1:39 PM Laboratory Results 04/15/17 12:40 04/15/17 12:40 Test 04/15/17 12:40 04/15/17 12:46 Red Blood Count 5.61 M/uL (4.7-6.1) Mean Corpuscular Volume 85.2 fL (80-100) Mean Corpuscular Hemoglobin 29.6 pg (25-34) Mean Corpuscular Hemoglobin Concent 34.7 g/dl (32-36) RDW Standard Deviation 42.3 fL (36.4-46.3) RDW Coefficient of Variation 13.8 % (11.5-14.5) Mean Platelet Volume 10.8 fL (7.4-10.4) Prothrombin Time 9.9 SECONDS (9.0-12.0) Prothromb Time International Ratio 0.9 (0.9-1.1) Activated Partial Thromboplast Time 27.8 SECONDS (21.0-31.0) Partial Thromboplastin Ratio 1.1 Anion Gap 5.0 mmol/L (3-11) Est Creatinine Clear Calc Drug Dose 69.1 ml/min Estimated GFR () 77.5 Estimated GFR (Non- 66.9 BUN/Creatinine Ratio 17.4 (10-20) Calcium Level 9.0 mg/dl (8.5-10.1) Total Bilirubin 0.7 mg/dl (0.2-1) Aspartate Amino Transf (AST/SGOT) 19 U/L (15-37) Alanine Aminotransferase (ALT/SGPT) 26 U/L (12-78) Alkaline Phosphatase 136 U/L (45-117) Total Creatine Kinase 143 U/L (39-308) Creatine Kinase MB 2.8 ng/ml (0.5-3.6) Creatine Kinase MB Ratio 2.0 (0-3.0) Total Protein 7.5 gm/dl (6.4-8.2) Albumin 4.1 gm/dl (3.4-5.0) Globulin 3.4 gm/dl (2.5-4.0) Albumin/Globulin Ratio 1.2 (0.9-2) Bedside Troponin I < 0.030 ng/ml (0-0.045) Laboratory results reviewed by me ECG Indication: chest pain Rate (beats per minute): 54 Rhythm: sinus bradycardia Findings: no acute ischemic change, no ectopy Change: Patient's electrocardiogram reading per my interpretation. ED Course 1314: The patient was evaluated in room C3. A complete history and physical exam was performed. 1509: I discussed the case with Dr. Gates - [facility] at this time. He will look at his study findings to this point. 1520: Dr. Gates will take the patient to have a stress test now. 1654: The patient has returned from his stress test, he is back in the room and feeling well. 1705: I reevaluated the patient. Discussed results and discharge instructions: He verbalized understanding and agreement. The patient is ready for discharge. Medical Decision Prior records/ancillary studies reviewed. Triage Nursing notes reviewed and agree them. The patient's history was concerning for chest pain, arm discomfort, and weakness. Differential diagnosis: Etiologies such as cardiac ischemia, atypical chest pain, aortic dissection, pulmonary embolism, pneumonia, pneumothorax, musculoskeletal, infections, pericarditis, myocarditis, esophageal rupture, gastrointestinal, as well as others were entertained. Physical examination: As above. ER treatment provided: No medication given On reassessment the patient felt better. Diagnostic interpretation by me: The electrocardiogram was negative for pathologic change. The labs revealed an unremarkable CBC and chemistry panel. Cardiac markers negative. Repeat troponin negative. Imaging studies: Chest x-ray as above Consultation: A consultation was placed with cardiology. The case was discussed and diagnostics were reviewed. Patient has stress test performed and this was negative. The patient had vague chest symptoms. He is doing well this time. He did have some reproducible tenderness. He does note having done a lot of shoveling and exertion but did not have pain with this exertion. Musculoskeletal source is possible given the history. It is reproducible. By the evaluation outlined above emergent etiologies such as cardiac ischemia, aortic dissection, pulmonary embolism, pneumonia, pneumothorax, infections, pericarditis, myocarditis, gastrointestinal, as well as others were deemed relatively unlikely. The patient was informed about the findings as listed above. All questions were answered and he was pleased with the treatment. Return instructions were outlined and the patient was discharged in stable condition. Referral: The patient was referred back to his primary care physician for follow-up in 2 to 3 days for a recheck of the current condition. Consults Time Called: 1500 Consulting Physician: Dr. Kody [facility] Returned Call: 1509 I discussed the case with Dr. Kody [facility] at this time. He will look at his study findings to this point. Impression Primary Impression: Left sided chest pain Additional Impression: Generalized weakness Scribe Attestation The scribe's documentation has been prepared under my direction and personally reviewed by me in its entirety. I confirm that the note above accurately reflects all work, treatment, procedures, and medical decision making performed by me. Departure Information Dispostion Being Evaluated By Hospitalist Referrals Mari Quick (PCP) Forms Call Back Authorization, HOME CARE DOCUMENTATION FORM, IMPORTANT VISIT INFORMATION Patient Instructions My [facility] Additional Instructions CHEST PAIN INSTRUCTIONS: Ibuprofen(Motrin, Advil) may be used for fever or pain. Use 600mg every six hours as needed. Take with food. Avoid using more than 2400mg in a 24 hour period. Do not use 2400mg per day for more than three consecutive days without physician direction. Prolonged inappropriate use can lead to stomach upset or ulcers. (AND/OR) Acetaminophen(Tylenol) may be used for fever or pain. Use 1000mg every six hours as needed. Avoid using more than 4000mg in a 24 hour period. Rest and drink plenty of fluids as tolerated. Continue current medications. Avoid strenuous activities and anything that worsens your pain. Resume normal activities once your symptoms resolve. Return to the ER immediately for worsening or persistent chest pain, abdominal pain, vomiting, fevers, chest pains, difficulty breathing, worsening of your condition, or as needed. Follow up with your primary physician in 1-2 days for a recheck of your current condition. Problem Qualifiers
--- NOTE | 2017-04-15 13:41 | DIAGNOSTIC IMAGING REPORT ---
CHEST ONE VIEW PORTABLE CLINICAL HISTORY: chest pain c03 dyspnea COMPARISON STUDY: 02/03/2017 FINDINGS: The bones soft tissues and hemidiaphragms are normal. The cardiomediastinal silhouette is normal. The lungs are clear. The pulmonary vasculature is normal. IMPRESSION: Negative chest. The above report was generated using voice recognition software. It may contain grammatical, syntax or spelling errors. Electronically signed by: Ender Pena M.D. 04/15/2017 1:40 PM Dictated Date/Time: 04/15/2017 1:39 PM
[2017-04-15 17:17] VITALS: BP 122/74; PULSE 54; TEMP 36.9; O2SAT 96
--- NOTE | 2017-04-15 17:36 | EXERCISE STRESS ECHO ---
*NOTICE TO RECEIVING [employer]PUBL[employer] AG[employer]Y This information is strictly Confidential and protected under [place] law. [place] law prohibits you from making any further disclosure of this information unless further disclosure is expressly permitted by the written consent of the person to whom it pertains or is authorized by law. A general authorization for the release of medical or other information is not sufficient for this purpose. Hospital accepts no responsibility if the information is made available to any other person, INCLUDING THE PATIENT. Interpretation Summary * Name: ARELI LEBRON Study Date: 04/15/2017 03:22 PM BP: 115/78 mmHg * Patient Location: [facility] HR: 68 * : 1955 (M/d/yyyy) Gender: Male Height: 70 in * Age: 62 yrs Ethnicity: [place] Weight: 190 lb * Ordering Physician: Yusuf Donaldson * Referring Physician: Self, Referred * Performed By: Kyra Mcknight RDCS * * Reason For Study: Chest Pain * BSA: 2.0 m2 * -- Conclusions -- * Diagnostic stress echocardiography without evidence of inducible ischemia Procedure Details * ECHOEX, CPT #61335 Left Ventricular Findings with Stress * Diagnostic stress echocardiography without evidence of inducible ischemia Stress Parameters * Normal baseline electrocardiogram. * Stress ECG: No ST changes. No arrhythmias. * The stress portion of this study was personally supervised by the undersigned interpreting physician. * Rest heart rate was '68' BPM. * Rest blood pressure was '115/78' * Maximum heart rate achieved was 134 bpm. * Maximum heart rate was 85 % of maximum age-predicted heart rate. * Maximum blood pressure was '206/70' * Total exercise time was '08:01' * Maximum exercise MET level achieved was '10.10' METS * Maximum treadmill speed was '3.40' miles per hour. * Maximum treadmill elevation was '14.00'% grade. Left Ventricular Findings with Stress * The baseline EKG was normal There were no significant ST or T-wave changes noted during exercise or recovery There was normal heart rate and blood pressure response to exercise Baseline echocardiographic images demonstrated preserved LV systolic function with normal wall motion There was normal augmentation of all segments without development of wall motion abnormalities at peak exertion Bermudez treadmill score: 8 (low risk) No symptoms of chest pain reported during the test
== END 2017-04-15 17:19 | disposition home or self-care (01) ==
LOC: EDBD 12:27 → C.EDC 12:29
DX: R07.9 Chest pain, unspecified (principal); R53.1 Weakness; E78.5 Hyperlipidemia, unspecified; I10 Essential (primary) hypertension; Z87.891 Personal history of nicotine dependence; Z79.82 Long term (current) use of aspirin; Z79.899 Other long term (current) drug therapy

== ENCOUNTER → 2017-07-27 | Outpatient (CLI) | payer OTHER ==
--- NOTE | 2017-07-27 09:50 | DIAGNOSTIC IMAGING REPORT ---
(CHEST) THORAX WITHOUT CLINICAL HISTORY: 62 years-old Male presenting with R91.8 multiple pulmonary nodules. TECHNIQUE: Multidetector CT imaging of the chest was performed without the use of intravenous contrast. IV contrast: None. A dose lowering technique was used consistent with the principles of ALARA (as low as reasonably achievable). COMPARISON: 08/27/2016 and 04/14/2016. CT DOSE (mGy.cm): The estimated cumulative dose is 366.69 mGy.cm. FINDINGS: [employer] topogram: Unremarkable. On soft tissue windows, normal thyroid and thoracic inlet. Persistent subcutaneous centrally hypodense nodule in the right posterior back intimately associated with the cutis (series 4 image 84), likely sebaceous cyst. No axillary, supraclavicular, or mediastinal lymphadenopathy. Evaluation of the odin limited without intravenous contrast. Normal aorta. Normal heart size. Coronary artery calcification. No pericardial or pleural effusion. Upper abdomen normal. On lung windows, moderate apical predominant centrilobular and paraseptal emphysematous changes. Solid 7 mm fissural nodule in the right middle/upper lobe (series 4 image 166), unchanged. Adjacent solid 6 mm fissural nodule in the right lower lobe (series 4 image 174), unchanged. Solid peripheral 4 mm nodule in the left lower lobe (series 4 image 162), unchanged. No new nodule. Central airways patent. On bone windows, normal osseous structures. IMPRESSION: 1. Multiple stable solid bilateral pulmonary nodules measuring up to 7 mm. These have remained stable since March 2016, which represents 16 months of stability. No new pulmonary nodule. 2. Emphysema. Please refer to below summary of Fleischner Society 2017 recommendations for follow-up of incidental CT nodules (H Nena et al. Guidelines for management of incidental pulmonary nodules detected on CT images: From the Fleischner Society 2017. Radiology 2017; 284: 228-243.) SOLID NODULES Single nodule; size < 6 mm * Low risk patients: No routine follow-up * High risk patients: Optional CT at 12 months Single nodule; size 6-8 mm * Low risk patients: CT at 6-12 months, then consider CT at 18-24 months * High risk patients: CT at 6-12 months, then at 18-24 months Single nodule; size > 8 mm * Either low or high risk patients: Considered CT at 3 months, PET/CT, or tissue sampling Multiple nodules; size < 6 mm * Low risk patients: No routine follow up * High risk patients: Optional CT at 12 months Multiple nodules; size 6-8 mm * Low risk patients: CT at 3-6 months, then consider CT at 18-24 months * High risk patients: CT at 3-6 months, then at 18-24 months Multiple nodules; size > 8 mm * Low risk patients: CT at 3-6 months, then consider at 18-24 months * High risk patients: CT at 3-6 months, then at 18-24 months SUBSOLID NODULES Single ground-glass nodule * Nodule size < 6 mm: No routine follow-up * Nodule size > or = 6 mm: CT at 6-12 months to confirm persistence, then CT every 2 years until 5 years Single part-solid nodule * Nodule size < 6 mm: No routine follow-up * Nodules size > or = 6 mm: CT at 3-6 months to confirm persistence. If unchanged and solid component remains < 6 mm, annual CT should be performed for 5 years Multiple nodules * Nodule size < 6 mm: CT at 3-6 months. If stable, consider CT at 2 and 4 years. * Nodules size > or = 6 mm: CT at 3-6 months. Subsequent management based on the most suspicious nodule(s) NOTE: 1) These guidelines apply to incidental nodules. These guidelines do NOT apply to patients younger than 35 years, immunocompromised patients, or patients with cancer. 2) Risk categories: * Low risk patients: Minimal or absent history of smoking and/or other known risk factors * High risk patients: History of smoking, exposure to other carcinogens, emphysema, fibrosis, upper lobe location, family history of lung cancer, etc. 3) If a nodule up to 8 mm is partly solid or is ground glass, further follow-up is required after 24 months to exclude possible slow growing adenocarcinoma. Electronically signed by: Garcia Olivera M.D. 07/27/2017 9:48 AM Dictated Date/Time: 07/27/2017 9:39 AM
== END | disposition home or self-care (01) ==
LOC: C.CTS 09:14
PROVIDERS: ATTEND Physician Assistant
DX: R91.8 Other nonspecific abnormal finding of lung field (principal); J43.9 Emphysema, unspecified

== ENCOUNTER → 2017-07-28 | Outpatient (CLI) | payer OTHER ==
--- NOTE | 2017-07-28 20:04 | DIAGNOSTIC IMAGING REPORT ---
CT SCAN OF THE ABDOMEN AND PELVIS WITHOUT IV CONTRAST CLINICAL HISTORY: Right lower quadrant abdominal pain. COMPARISON STUDY: Abdominal CT dated 11/19/2009. TECHNIQUE: CT scan of the abdomen and pelvis is performed from the lung bases to the proximal femora. Images are reviewed in the axial, sagittal, and coronal planes. IV contrast was not administered for this examination as per the referring clinician. Note that the examination is suboptimal without IV contrast. Oral contrast was utilized. A dose lowering technique was utilized adhering to the principles of ALARA. CT DOSE: 854.37 mGycm FINDINGS: Lung bases: The heart is normal in size and without pericardial effusion. Emphysematous change is suggested. No airspace consolidation or pleural effusion is identified. There is minimal bibasilar atelectasis. A 2 mm pulmonary nodule at the right lung base seen on image #37 is unchanged dating back to 2009 and of doubtful significance. Liver: The unenhanced liver is normal in size, contour, and attenuation. There is no intrahepatic biliary ductal dilatation. Gallbladder: Unremarkable. Spleen: Normal in size and attenuation. Pancreas: The unenhanced pancreas is grossly unremarkable. Adrenal glands: Unremarkable. Kidneys: The unenhanced kidneys are normal in size and without hydronephrosis. There are no renal calculi identified. Small parapelvic cysts are suggested on the left. There is no evidence of contour deforming renal mass lesion. Abdominal vasculature: The abdominal aorta is normal in course and caliber noting moderate atherosclerotic calcification. Bowel: There is mild to moderate colonic fecal retention. No bowel obstruction is seen. The appendix is well-visualized and normal. Peritoneum: There is no intraperitoneal free air or abdominal ascites. There is a fat-containing umbilical hernia. Lymphadenopathy: None. Pelvic viscera: The bladder is decompressed and grossly unremarkable. The prostate and seminal vesicles are normal as visualized. Skeletal structures: No lytic or blastic lesions are seen. Small lucencies in the bony pelvis are unchanged dating back to 2009 and of doubtful significance. IMPRESSION: There are no acute infectious or inflammatory findings in the abdomen or pelvis. Electronically signed by: Luis Almeida M.D. 07/28/2017 8:02 PM Dictated Date/Time: 07/28/2017 7:57 PM
== END | disposition home or self-care (01) ==
LOC: C.CTS 16:56
PROVIDERS: ATTEND Family Medicine
DX: R10.31 Right lower quadrant pain (principal)

== ENCOUNTER 2020-04-30 20:33 | Observation (INO) ==
[2020-04-30] MEDS ORDERED: SODIUM CHLORIDE 0.9% 1000ML 500 ML IV ONE (20:48)
[2020-04-30] MEDS ORDERED: dilTIAZem HCl 5 MG/ML 5 ML VIAL IV ONE (20:48)
[2020-04-30] MEDS ORDERED: SODIUM CHLORIDE 0.9% 1000ML 1,000 ML IV STA (20:48)
[2020-04-30] MEDS ORDERED: STAT IV Infusion **Titration per Protocol STA (20:54)
[2020-04-30 20:56] LABS: Basophils # (auto) 0.02 K/uL (0-0.2); Basophils % (auto) 0.1 %; Eosinophils # (auto) 0.04 K/uL (0-0.5); Eosinophils % (auto) 0.3 %; Hematocrit (blood only) 48.1 % (42-52); Hemoglobin 17.4 g/dL (14.0-18.0); Immature Granulocytes # (auto) 0.03 K/uL (0.00-0.02); Immature Granulocytes % (auto) 0.2 %; Lymphocytes # (auto) 1.58 K/uL (1.2-3.4); Mean Corpuscular Hemoglobin 30.3 pg (25-34); Mean Corpuscular Hgb Conc 36.2 g/dL (32-36); Mean Corpuscular Volume 83.8 fL (80-100); Mean Platelet Volume 10.7 fL (7.4-10.4); Monocytes # (auto) 1.29 K/uL (0.11-0.59); Monocytes % (auto) 8.2 %; Neutrophils # (auto) 12.78 K/uL (1.4-6.5); Neutrophils % (auto) 81.2 %; Platelet Count 157 K/uL (130-400); RDW Coefficient of Variation 13.2 % (11.5-14.5); RDW Standard Deviation 39.3 fL (36.4-46.3); Red Blood Count 5.74 M/uL (4.7-6.1); White Blood Count 15.74 K/uL (4.8-10.8)
[2020-04-30] MEDS ORDERED: dilTIAZem HCL 125 MG in DEXTROSE 5% 100 ML IV SCH (21:00)
--- NOTE | 2020-04-30 21:08 | Emergency Department Note ---
Impression & Plan Atrial fibrillation with rapid ventricular response ED Provider Note INFORMANT: Patient ED PROVIDER(S): Yusuf Donaldson MD CHIEF COMPLAINT: Abdominal pain PLAN: Disposition: Admitted Condition: Good Outpatient prescription management: none Referral: None MEDICAL DECISION MAKING: Patient presented with complaints of abdominal pain. He was noted to be tachycardic. ECG was performed and showed A. fib with rapid ventricular response. An IV was established. He was given a fluid bolus and 10 mg of IV Cardizem. An IV Cardizem drip was initiated. The patient has a mild leukocytosis. His chemistry panel was unremarkable. The troponin was negative. The patient underwent CT scan of the abdomen pelvis because of the abdominal pain and leukocytosis. No acute findings were noted. He required a titration upward of his Cardizem drip. The patient will need further management in the hospital. Consultation was made with Dr. James Mendoza of the [facility] service. Patient was evaluated in the ER for further management. Triage Nursing notes reviewed and agree them. Vital Signs: reviewed and remarkable for tachycardia Differential diagnosis: Cardiac ischemia, aortic dissection, pulmonary embolism, pneumothorax, pneumonia, pericarditis, myocarditis, esophageal rupture, GERD, cholecystitis, pancreatitis, musculoskeletal, as well as other pathologies. Diagnostics interpreted by me: ECG: Twelve-lead ECG reveals atrial fibrillation with rapid ventricular response at 142 bpm. Left axis deviation. Nonspecific ST abnormality. No ST elevation. No PVCs. Normal QRS. Cardiac Monitoring:Cardiac monitoring ordered by me: The patient was placed on continuous cardiac monitoring and observed. It revealed a atrial fibrillation at 166 beats per minute without ectopy. Imaging studies: Chest x-ray. Findings: A chest x-ray was performed and revealed no pneumothorax, effusion, infiltrate, pulmonary edema, free air under the diaphragm, or wide mediastinum. Impression: No acute disease. CT scan of the abdomen pelvis was negative. I refer you to the EMR for further details. HPI: The patient is a 65 year old male who presents to the Emergency Room with complaints of epigastric abdominal pain. This started this evening after shoveling snow and is persisting. The patient also notes the following associated symptoms, lightheadedness, substernal chest pain, and minimal shortness of breath. The patient has taken no medication for relieving factors. Current pain is rated as 7/10. Pt denies LOC, headache, fevers, chills, diaphoresis, visual changes, neck pain, nausea, vomiting, back pain, melena, hematochezia, urinary symptoms, numbness, weakness, lymphadenopathy, rash, or other complaints. ROS: See above HPI for pertinent positives & negatives. A total of 10 systems reviewed and were otherwise negative. PAST MEDICAL HISTORY:See Below , high cholesterol PAST SURGICAL HISTORY:See Below, patient denies FAMILY HISTORY:See Below SOCIAL HISTORY:See Below, chews tobacco, former smoker HOME MEDICATIONS:See Below ALLERGIES:See Below VITALS:See Below PHYSICAL EXAMINATION: GENERAL: Awake, alert, well-appearing, in no distress HENT: Normocephalic, atraumatic. Oropharynx unremarkable. EYES: Normal conjunctiva. Sclera non-icteric. NECK: Inspection normal. Non-tender. Supple. No nuchal rigidity. FROM. No masses. RESPIRATORY: Clear to auscultation. No wheezes. No rales. Normal respiratory effort. CARDIAC: Very tachycardic rate. Irregular rhythm. No murmurs. No rubs. Extremities warm and well perfused. Pulses equal. No JVD. GI: Soft, non-distended. Minimal epigastric tenderness to palpation. No rebound or guarding. No masses. RECTAL: Deferred. MUSCULOSKELETAL: Atraumatic. Chest examination reveals no tenderness. The back is symmetrical on inspection without obvious abnormality. There is no CVA tenderness to palpation. No joint edema. LOWER EXTREMITIES: Calves are equal size bilaterally and non-tender. No edema. No discoloration. NEURO: Normal sensorium. No sensory or motor deficits noted. SKIN: No rash or jaundice noted. ED COURSE: Critical Care: I have personally spent greater than 35 minutes of critical care time in the direct management of this patient. This includes bedside care, interpretation of diagnostic studies, and testing, discussion with consultants, patient, and other required patient management activities. These minutes are in excess of all separately billable procedures. Yusuf Donaldson MD Past Med/Surg History Social History Smoking Status: Former smoker Tobacco Type: Cigarettes Cigarettes Per Day: 10; Feels Safe at Home: Yes Allergies Allergies Allergy/AdvReac Type Severity Reaction Status Date / Time tetanus toxoid, adsorbed Allergy Severe ANAPHYLAXIS Verified 04/30/20 21:04 Home Meds Home Medications Medication Instructions Recorded Confirmed aspirin 81 mg PO QAM 04/30/20 04/30/20 atorvastatin 20 mg PO QAM 04/30/20 04/30/20 multivitamin 1 tab PO QAM 04/30/20 04/30/20 omeprazole 20 mg PO QAM 04/30/20 04/30/20 Results & Data (ED) Vital Signs Vital Signs - 24 hr 04/30/20 20:35 04/30/20 21:16 04/30/20 22:11 Temperature 37.1 C Temperature Source Temporal Artery Scan Pulse Rate 140 H Pulse Rate [Right] 114 H 132 H Pulse Rhythm [Right] Irregular Irregular Pulse Strength [Right] Normal Normal Respiratory Rate 20 16 16 Respiratory Effort / Characteristics Non-Labored Spontaneous Non-Labored Spontaneous Respiratory Depth Normal Normal Normal Blood Pressure 141/95 H Blood Pressure [Right Arm] 118/73 141/81 H Blood Pressure Mean 110 Blood Pressure Mean [Right Arm] 88 101 Blood Pressure Position [Right Arm] Sitting Lying Pulse Oximetry 95 96 99 Oxygen Delivery Method Room Air Room Air Room Air Sepsis Recent Fever Within 48 Hours No Sepsis New/Unexplained Change in Mental Status No Sepsis Action Taken by Nursing No Action Required 04/30/20 22:38 Temperature Temperature Source Pulse Rate Pulse Rate [Right] 87 Pulse Rhythm [Right] Irregular Pulse Strength [Right] Normal Respiratory Rate 16 Respiratory Effort / Characteristics Non-Labored Spontaneous Respiratory Depth Normal Blood Pressure Blood Pressure [Right Arm] 113/91 Blood Pressure Mean Blood Pressure Mean [Right Arm] 98 Blood Pressure Position [Right Arm] Lying Pulse Oximetry 98 Oxygen Delivery Method Room Air Sepsis Recent Fever Within 48 Hours Sepsis New/Unexplained Change in Mental Status Sepsis Action Taken by Nursing Laboratory Data Result diagrams: 04/30/20 20:46 04/30/20 21:36 Lab Results 04/30/20 04/30/20 04/30/20 Range/Units 20:46 20:46 20:47 WBC 15.74 H (4.8-10.8) K/uL RBC 5.74 (4.7-6.1) M/uL Hgb 17.4 (14.0-18.0) g/dL Hct 48.1 (42-52) % MCV 83.8 (80-100) fL MCH 30.3 (25-34) pg MCHC 36.2 H (32-36) g/dL RDW Std Deviation 39.3 (36.4-46.3) fL RDW Coeff of Zay 13.2 (11.5-14.5) % Plt Count 157 (130-400) K/uL MPV 10.7 H (7.4-10.4) fL Immature Gran % (Auto) 0.2 % Neut % (Auto) 81.2 % Lymph % (Auto) 10.0 % Robertson % (Auto) 8.2 % Eos % (Auto) 0.3 % Baso % (Auto) 0.1 % Neut # (Auto) 12.78 H (1.4-6.5) K/uL Lymph # (Auto) 1.58 (1.2-3.4) K/uL Robertson # (Auto) 1.29 H (0.11-0.59) K/uL Eos # (Auto) 0.04 (0-0.5) K/uL Baso # (Auto) 0.02 (0-0.2) K/uL Immature Gran # (Auto) 0.03 H (0.00-0.02) K/uL Sodium 141 (136-145) mmol/L Potassium (3.5-5.1) mmol/L Chloride 107 (98-107) mmol/L Carbon Dioxide 25 (21-32) mmol/L Anion Gap 9.0 (3-11) BUN 27 H (7-18) mg/dl Creatinine 1.50 H (0.6-1.4) mg/dl Est Cr Clr Drug Dosing 56.1 ml/min Est GFR ( Amer) 55.0 Est GFR (Non-Af Amer) 47.5 BUN/Creatinine Ratio 18.1 (10-20) Glucose 101 H (70-99) mg/dl Calcium 9.7 (8.5-10.1) mg/dl Magnesium (1.8-2.4) mg/dl Total Bilirubin 1.6 H (0.2-1) mg/dl AST (15-37) U/L ALT 27 (12-78) U/L Alkaline Phosphatase 145 H (45-117) U/L Troponin I < 0.015 (0-0.045) ng/ml Total Protein 7.6 (6.4-8.2) gm/dl Albumin 4.2 (3.4-5.0) gm/dl Globulin 3.4 (2.5-4.0) gm/dl Albumin/Globulin Ratio 1.3 (0.9-2) TSH 1.180 (0.300-4.500) uIu/ml COVID-19 Eval [facility] SARS-CoV-2, RNA, NAAT (NEGATIVE) 04/30/20 04/30/20 Range/Units 20:47 21:36 WBC (4.8-10.8) K/uL RBC (4.7-6.1) M/uL Hgb (14.0-18.0) g/dL Hct (42-52) % MCV (80-100) fL MCH (25-34) pg MCHC (32-36) g/dL RDW Std Deviation (36.4-46.3) fL RDW Coeff of Zay (11.5-14.5) % Plt Count (130-400) K/uL MPV (7.4-10.4) fL Immature Gran % (Auto) % Neut % (Auto) % Lymph % (Auto) % Robertson % (Auto) % Eos % (Auto) % Baso % (Auto) % Neut # (Auto) (1.4-6.5) K/uL Lymph # (Auto) (1.2-3.4) K/uL Robertson # (Auto) (0.11-0.59) K/uL Eos # (Auto) (0-0.5) K/uL Baso # (Auto) (0-0.2) K/uL Immature Gran # (Auto) (0.00-0.02) K/uL Sodium (136-145) mmol/L Potassium 3.8 (3.5-5.1) mmol/L Chloride (98-107) mmol/L Carbon Dioxide (21-32) mmol/L Anion Gap (3-11) BUN (7-18) mg/dl Creatinine (0.6-1.4) mg/dl Est Cr Clr Drug Dosing ml/min Est GFR ( Amer) Est GFR (Non-Af Amer) BUN/Creatinine Ratio (10-20) Glucose (70-99) mg/dl Calcium (8.5-10.1) mg/dl Magnesium 2.0 (1.8-2.4) mg/dl Total Bilirubin (0.2-1) mg/dl AST 24 (15-37) U/L ALT (12-78) U/L Alkaline Phosphatase (45-117) U/L Troponin I (0-0.045) ng/ml Total Protein (6.4-8.2) gm/dl Albumin (3.4-5.0) gm/dl Globulin (2.5-4.0) gm/dl Albumin/Globulin Ratio (0.9-2) TSH (0.300-4.500) uIu/ml COVID-19 Eval Order SARS-CoV-2, RNA, NAAT NEGATIVE (NEGATIVE) Administered Medications Sodium Chloride (Nss 1000ml) 1,000 mls @ 125 mls/hr IV .Q8H STA Stop: 05/01/20 04:47 Last Admin: 04/30/20 20:50 Dose: 125 mls/hr Documented by: [id number] Discontinued Medications Diltiazem HCl (Diltiazem Hcl 5 Mg/Ml 5 Ml Vial) Confirm Administered Dose 25 mg IV .STK-MED ONE Stop: 04/30/20 20:49 Last Increment: 04/30/20 20:50 Dose: 10 mg Documented by: [id number] Cosigned by: [id number] Sodium Chloride (Nss 1000ml) 500 mls @ 999 mls/hr IV .Q31M ONE Stop: 04/30/20 21:18 Last Infusion: 04/30/20 21:21 Dose: 0 mls/hr Documented by: [id number] Admin: 04/30/20 20:50 Dose: 999 mls/hr Documented by: [id number] Diltiazem HCl 125 mg/ Dextrose 125 mls @ 5 mls/hr IV .Q24H [facility]; Protocol Stop: 05/30/20 20:59 Last Titration: 04/30/20 22:09 Dose: 10 mg/hr, 10 mls/hr Documented by: [id number] Cosigned by: [id number] Admin: 04/30/20 21:14 Dose: 5 mg/hr, 5 mls/hr Documented by: [id number] Cosigned by: [id number] Miscellaneous (Stat Iv Infusion Titration Per Protocol) 1 ea N/A NOW STA Stop: 04/30/20 20:55 Last Admin: 04/30/20 21:16 Dose: 1 ea Documented by: [id number] Discharge Plan Visit Data Chief Complaint: Abdominal Pain Stated Complaint: ABD PAIN ED Provider: Yusuf Donaldson Discharge Problem: Atrial fibrillation with rapid ventricular response Forms Stand Alone Forms: My [facility] Prescriptions Prescriptions: No Action multivitamin Tablet 1 tab PO QAM RF: 0 atorvastatin 20 mg tablet 20 mg PO QAM RF: 0 aspirin 81 mg Tablet,Delayed Release (Dr/Ec) 81 mg PO QAM RF: 0 omeprazole 20 mg capsule,delayed release(DR/EC) 20 mg PO QAM RF: 0
[2020-04-30 21:30] LABS: Alanine Aminotransferase 27 U/L (12-78); Albumin Globulin Ratio 1.3 (0.9-2); Albumin Level 4.2 gm/dl (3.4-5.0); Alkaline Phosphatase 145 U/L (45-117); BUN Creatinine Ratio 18.1 (10-20); Bilirubin,Total 1.6 mg/dl (0.2-1); Blood Urea Nitrogen 27 mg/dl (7-18); Calcium 9.7 mg/dl (8.5-10.1); Carbon Dioxide 25 mmol/L (21-32); Chloride 107 mmol/L (98-107); Creatinine Clr Calc Pharmacy 56.1 ml/min; Est GFR (Non-African American) 47.5; Globulin 3.4 gm/dl (2.5-4.0); Glucose 101 mg/dl (70-99); Sodium 141 mmol/L (136-145); Total Protein 7.6 gm/dl (6.4-8.2); Troponin I < 0.015 ng/ml (0-0.045)
[2020-04-30 21:57] LABS: Potassium 3.8 mmol/L (3.5-5.1)
[2020-04-30] MEDS ORDERED: dilTIAZem HCL 30 MG TAB PO ONE (22:37)
[2020-05-01] MEDS ORDERED: ONDANSETRON INJ 2 MG/ML 2 ML VIAL IV PRN (00:20)
[2020-05-01] MEDS ORDERED: NITROGLYCERIN SL 0.4 MG/TAB TAB SL PRN (00:20)
[2020-05-01] MEDS ORDERED: dilTIAZem HCl 5 MG/ML 5 ML VIAL IV PRN (00:20)
[2020-05-01] MEDS ORDERED: ACETAMINOPHEN 325 MG TAB PO PRN (00:20)
[2020-05-01] MEDS: SODIUM CHLORIDE 0.9% 1000ML 1,000 ML IV SCH ×2 (00:30→08:44)
[2020-05-01] MEDS ORDERED: PNEUMOCOCCAL Polysaccharide Vaccine 25mcg/0.5mL vial/Syr IM ONE (01:15)
--- NOTE | 2020-05-01 03:05 | History & Physical Report ---
Date of Service May 01, 2020 The patient was seen and examined on 04/30/2020 Assessment & Plan (1) Atrial fibrillation with rapid ventricular response: Atrial fibrillation with RVR/hypertension- The patient will be admitted to telemetry for serial cardiac enzymes, serial EKG's, cardiac rhythm monitoring and a 2-D echocardiogram with Dopplers. Continue aspirin 81 mg daily Placing on Cardizem 30 mg p.o. every 6 hours, and discontinue Cardizem drip as noted. Can convert to Cardizem CD in the a.m. if rate control is controlled as expected. Consult cardiology Present on Admission?: Yes (2) Hypertension: See above Present on Admission?: Yes (3) GERD (gastroesophageal reflux disease): Change omeprazole to pantoprazole per formulary interchange Present on Admission?: Yes (4) Hyperlipidemia: Continue atorvastatin 20 mg daily Present on Admission?: Yes (5) Acute kidney injury: Creatinine 1.50 upon admission, with most recent 1.22- Received total 1500 mL in the ED. Recheck laboratories in a.m. Present on Admission?: Yes (6) Xiphoid pain: Part of his pain is reproducible, and is likely secondary to xiphisternal pain due to shoveling snow. Present on Admission?: Yes Admission and Anticipated Discharge Date Admission Date: April 30, 2020 History of Present Illness Chief Complaint: The patient presents to the emergency department with complaint of epigastric and subxiphoid pain that began earlier in the day after shoveling snow. Primary Care Provider: NATHALY Guillen The patient is a 65-year-old male with a past medical history including hypertension, hyperlipidemia, GERD and pulmonary nodule. He was shoveling snow this morning, when shortly thereafter he developed discomfort over his xiphoid process area, and felt lightheaded. When he presented to the emergency department he was found to have increased heart rate, and EKG at that time showed a new diagnosis of atrial fibrillation with RVR. He received Cardizem 25 mg IV and then was started on a Cardizem drip at 5 mg/h by the ED. He was then placed on Cardizem 30 mg p.o. x1 by hi, with Cardizem drip stopped 1 hour later, and will be continued on Cardizem 30 mg p.o. every 6 hours, with breakthrough Cardizem 10 mg IV every 4 hours as needed for heart rate greater than 110 Allergies Allergy/AdvReac Type Severity Reaction Status Date / Time tetanus toxoid, adsorbed Allergy Severe ANAPHYLAXIS Verified 04/30/20 21:04 Home Medications Medication Instructions Recorded Confirmed Type aspirin 81 mg PO QAM 04/30/20 04/30/20 History atorvastatin 20 mg PO QAM 04/30/20 04/30/20 History multivitamin 1 tab PO QAM 04/30/20 04/30/20 History omeprazole 20 mg PO QAM 04/30/20 04/30/20 History Past Med/Surg History Medical History (Updated 05/01/20 @ 04:36 by James Mendoza MD) GERD (gastroesophageal reflux disease) Hyperlipidemia Hypertension Pulmonary nodule Social History Smoking Status: Former smoker Tobacco Type: Cigarettes Cigarettes Per Day: 10; Do You Dip or Chew Tobacco: Yes; Hx Alcohol Use: No Hx Substance Use: No Beliefs That Will Affect Care: None Current Living Situation: Family Other Information That Helps Us Care for You: No Feels Safe at Home: Yes Safety Concerns: Feels Safe At This Time Assistive Devices: Glasses Review of Systems Review of Systems: The patient denies palpitations, cough, lower extremity swelling, sore throat, fevers, chills, sweats, nausea, vomiting, diarrhea , constipation, abdominal pain, pelvic pain, blood in urine or stool, dysuria, urinary frequency or urgency, headache, memory loss, loss of consciousness, rash, abnormal bruising or bleeding, imbalance, focal or generalized weakness, numbness or tingling in arms or legs, generalized arthralgias or myalgias, back or neck pain, or night sweats. The review of systems is otherwise negative other than for that already noted above, and at least 10 systems have been reviewed. Physical Exam Physical Exam: The patient is awake, alert and oriented 3, well developed and well nourished, normocephalic and atraumatic, lying in bed and in no acute distress. HEENT--PERRL, EOMI, mucous membranes and oropharynx dry. Neck--supple. No JVD. No bruits. Thyroid normal, trachea midline, no adenopathy. Heart--tachycardic, irregularly irregular. No murmurs, rubs or gallops. Lungs--clear bilaterally, no respiratory distress, no accessory muscle use. Abdomen--normal bowel sounds and soft. Nontender. Nondistended, no hernias or masses, no organomegaly. Extremities--no cyanosis or clubbing. No edema. Dermatologic--normal skin turgor, normal color, no abnormal lymph nodes, no rash. Neurologic--cranial nerves II through XII grossly intact. Rheumatologic--normal range of motion. Psychiatric--normal affect. Results & Data Results & Data ([facility]) Vital Signs (Past 12 Hours) Vital Signs Temp Pulse Pulse Resp BP BP Pulse Ox 05/01/20 00:20 90 04/30/20 23:53 97.9 F 85 18 122/81 95 04/30/20 23:30 78 19 115/71 94 04/30/20 23:20 81 18 95 04/30/20 23:10 94 H 18 95 04/30/20 23:00 94 H 21 134/77 97 04/30/20 22:50 94 H 18 96 04/30/20 22:40 117 H 17 95 04/30/20 22:38 87 16 113/91 98 04/30/20 22:30 126 H 21 113/91 97 04/30/20 22:20 113 H 17 96 04/30/20 22:11 132 H 16 141/81 H 99 04/30/20 22:10 137 H 20 96 04/30/20 22:06 167 H 22 04/30/20 22:04 107 H 18 141/90 H 04/30/20 21:40 109 H 21 97 04/30/20 21:30 104 H 14 123/81 97 04/30/20 21:20 95 H 15 97 04/30/20 21:16 114 H 16 118/73 96 04/30/20 21:14 102 H 17 118/73 95 04/30/20 21:10 108 H 15 94 04/30/20 21:01 109 H 23 95/74 L 96 04/30/20 21:00 105 H 14 95 04/30/20 20:51 137 H 25 H 96 04/30/20 20:46 137 H 24 117/93 96 04/30/20 20:35 98.8 F 140 H 20 141/95 H 95 Laboratory Results Laboratory Results WBC 15.74 K/uL (4.8-10.8) H 04/30/20 20:46 RBC 5.74 M/uL (4.7-6.1) 04/30/20 20:46 Hgb 17.4 g/dL (14.0-18.0) 04/30/20 20:46 Hct 48.1 % (42-52) 04/30/20 20:46 MCV 83.8 fL (80-100) 04/30/20 20:46 MCH 30.3 pg (25-34) 04/30/20 20:46 MCHC 36.2 g/dL (32-36) H 04/30/20 20:46 RDW Std Deviation 39.3 fL (36.4-46.3) 04/30/20 20:46 RDW Coeff of Zay 13.2 % (11.5-14.5) 04/30/20 20:46 Plt Count 157 K/uL (130-400) 04/30/20 20:46 MPV 10.7 fL (7.4-10.4) H 04/30/20 20:46 Immature Gran % (Auto) 0.2 % 04/30/20 20:46 Neut % (Auto) 81.2 % 04/30/20 20:46 Lymph % (Auto) 10.0 % 04/30/20 20:46 Custer % (Auto) 8.2 % 04/30/20 20:46 Eos % (Auto) 0.3 % 04/30/20 20:46 Baso % (Auto) 0.1 % 04/30/20 20:46 Neut # (Auto) 12.78 K/uL (1.4-6.5) H 04/30/20 20:46 Lymph # (Auto) 1.58 K/uL (1.2-3.4) 04/30/20 20:46 Custer # (Auto) 1.29 K/uL (0.11-0.59) H 04/30/20 20:46 Eos # (Auto) 0.04 K/uL (0-0.5) 04/30/20 20:46 Baso # (Auto) 0.02 K/uL (0-0.2) 04/30/20 20:46 Immature Gran # (Auto) 0.03 K/uL (0.00-0.02) H 04/30/20 20:46 Sodium 141 mmol/L (136-145) 04/30/20 20:46 Potassium 3.8 mmol/L (3.5-5.1) 04/30/20 21:36 Chloride 107 mmol/L (98-107) 04/30/20 20:46 Carbon Dioxide 25 mmol/L (21-32) 04/30/20 20:46 Anion Gap 9.0 (3-11) 04/30/20 20:46 BUN 27 mg/dl (7-18) H 04/30/20 20:46 Creatinine 1.50 mg/dl (0.6-1.4) H 04/30/20 20:46 Est Cr Clr Drug Dosing 56.1 ml/min 04/30/20 20:46 Est GFR ( Amer) 55.0 04/30/20 20:46 Est GFR (Non-Af Amer) 47.5 04/30/20 20:46 BUN/Creatinine Ratio 18.1 (10-20) 04/30/20 20:46 Glucose 101 mg/dl (70-99) H 04/30/20 20:46 Calcium 9.7 mg/dl (8.5-10.1) 04/30/20 20:46 Magnesium 2.0 mg/dl (1.8-2.4) 04/30/20 21:36 Total Bilirubin 1.6 mg/dl (0.2-1) H 04/30/20 20:46 AST 24 U/L (15-37) 04/30/20 21:36 ALT 27 U/L (12-78) 04/30/20 20:46 Alkaline Phosphatase 145 U/L (45-117) H 04/30/20 20:46 Troponin I < 0.015 ng/ml (0-0.045) 04/30/20 20:46 Total Protein 7.6 gm/dl (6.4-8.2) 04/30/20 20:46 Albumin 4.2 gm/dl (3.4-5.0) 04/30/20 20:46 Globulin 3.4 gm/dl (2.5-4.0) 04/30/20 20:46 Albumin/Globulin Ratio 1.3 (0.9-2) 04/30/20 20:46 TSH 1.180 uIu/ml (0.300-4.500) 02/02/21 20:46 COVID-19 Eval Order Covid19 [facility] 04/30/20 20:47 SARS-CoV-2, RNA, NAAT NEGATIVE (NEGATIVE) 04/30/20 20:47 Diagnostic Findings Accession Numbers: [id number] Preliminary Findings Only See Final Report For Complete Findings CT ABDOMEN & PELVIS Without Contrast: No radiodense gallstones or pancreatitis. The kidneys are within normal limits. No evidence of colitis. Unremarkable appendix. Nonobstructive bowel gas pattern. Radiologist: Eric Hassan M.D. Study ready at 22:08 and initial results transmitted at 22:12 *This report constitutes a preliminary interpretation only. Non-acute findings felt to be unrelated to the clinical presentation may not be discussed in this report. The study will be interpreted and a final report will be generated by the local Radiologist the following shift. To reach the hospital radiology department call [phone]. If a discrepancy is found between the preliminary and final interpretations of this study, please notify us via our Client Portal at [email or web address], under QA Exams.You can also fax this report with a description of the discrepancy, or include the final report, to our daytime fax number [phone].If faxing, please indicate the severity of discrepancy using one of the following categories: [ ] 1 - Agree/Informational [ ] 2 - Unlikely to Affect Management [ ] 3 - Possible Eventual Change of Management [ ] 4 - Probable Immediate Change of Management For all other patient related information, please fax us at [phone]. [id number] Code Status & VTE Plan Code Status Full code VTE Prophylaxis Plan VTE Prophylaxis will be ordered: Yes PG Care Time/CCT Total # of Minutes Spent Total Time Spent with Patient: Total time spent is greater than 50% in coordination of care (as documented) at patient's floor/unit and/or counseling patient: Coding Level of Care Code 79652 OBS Care - Level 3 Diagnoses Atrial fibrillation with rapid ventricular response I48.91 Hypertension I10 GERD (gastroesophageal reflux disease) K21.9 Hyperlipidemia E78.5 Acute kidney injury N17.9 Xiphoid pain R07.89
[2020-05-01] MEDS ORDERED: dilTIAZem HCL 30 MG TAB PO SCH (05:00)
[2020-05-01 05:53] LABS: Basophils # (auto) 0.03 K/uL (0-0.2); Basophils % (auto) 0.4 %; Eosinophils # (auto) 0.14 K/uL (0-0.5); Eosinophils % (auto) 1.7 %; Hematocrit (blood only) 42.9 % (42-52); Hemoglobin 14.9 g/dL (14.0-18.0); Immature Granulocytes # (auto) 0.01 K/uL (0.00-0.02); Immature Granulocytes % (auto) 0.1 %; Lymphocytes # (auto) 1.65 K/uL (1.2-3.4); Lymphocytes % (auto) 20.5 %; Mean Corpuscular Hemoglobin 29.6 pg (25-34); Mean Corpuscular Hgb Conc 34.7 g/dL (32-36); Mean Corpuscular Volume 85.1 fL (80-100); Mean Platelet Volume 10.8 fL (7.4-10.4); Monocytes # (auto) 0.89 K/uL (0.11-0.59); Monocytes % (auto) 11.1 %; Neutrophils # (auto) 5.32 K/uL (1.4-6.5); Neutrophils % (auto) 66.2 %; Platelet Count 147 K/uL (130-400); RDW Coefficient of Variation 13.3 % (11.5-14.5); RDW Standard Deviation 40.9 fL (36.4-46.3); Red Blood Count 5.04 M/uL (4.7-6.1); White Blood Count 8.04 K/uL (4.8-10.8)
[2020-05-01 06:39] LABS: Alanine Aminotransferase 22 U/L (12-78); Albumin Globulin Ratio 1.2 (0.9-2); Albumin Level 3.2 gm/dl (3.4-5.0); Alkaline Phosphatase 118 U/L (45-117); Aspartate Aminotransferase 26 U/L (15-37); BUN Creatinine Ratio 18.8 (10-20); Bilirubin,Total 1.1 mg/dl (0.2-1); Blood Urea Nitrogen 25 mg/dl (7-18); Calcium 8.1 mg/dl (8.5-10.1); Carbon Dioxide 27 mmol/L (21-32); Chloride 115 mmol/L (98-107); Creatinine Clr Calc Pharmacy 63.1 ml/min; Est GFR (African American) 64.2; Est GFR (Non-African American) 55.4; Globulin 2.7 gm/dl (2.5-4.0); Glucose 97 mg/dl (70-99); Magnesium 2.1 mg/dl (1.8-2.4); Potassium 3.8 mmol/L (3.5-5.1); Sodium 145 mmol/L (136-145); Total Protein 5.9 gm/dl (6.4-8.2); Troponin I < 0.015 ng/ml (0-0.045)
--- NOTE | 2020-05-01 07:45 | CT Scan Report ---
ABDOMEN AND PELVIS CT WITHOUT CONTRAST CT DOSE: 665.71 mGy.cm HISTORY: epigastric pain, elevated WBC. rapid afib TECHNIQUE: Multiaxial CT images of the abdomen and pelvis were performed without contrast. A dose lo wering technique was utilized adhering to the principles of ALARA. COMPARISON STUDY: Abdomen and pelvis CT 05/04 S 19. FINDINGS: Stable 3 mm nodule within the right lower lobe on image 28. This is likely benign. Question able small lucent lesions seen scattered throughout the visualized spine and pelvic bones. Dominant l ucent lesion within the right iliac bone on image 235 measures 8 mm. These remain unchanged compared to 2009 examination. The unenhanced liver, gallbladder, pancreas, spleen, adrenal glands, and right kidney are within normal limits. No renal or ureteral stones. No hydronephrosis. There are few small left peripelvic renal cysts, unchanged. Normal bladder. No pelvic free fluid. No retroperitoneal lym phadenopathy. Mild calcified plaque within the normal caliber abdominal aorta. Suboptimal evaluation for bowel pathology due to the lack of intravenous and oral contrast. However, there is no definite b owel wall thickening or obstruction. A few colonic diverticula. No evidence for acute diverticulitis. Normal appendix. IMPRESSION: 1. No renal or ureteral stones. No hydronephrosis. 2. No CT evidence for acute pancreatitis. 3. No definite bowel wall thickening or obstruction. 4. Normal appendix. 5. Scattered small lucent lesions within the spine and pelvis remain stable dating back to 2009 and a re therefore of doubtful clinical significance. ACT 112: Negative or not required by law. Electronically signed by: Sudarshan Kearns M.D. 05/01/2020 7:44 AM
--- NOTE | 2020-05-01 08:05 | XRay Report ---
XR chest 1V portable HISTORY: Atypical chest pain COMPARISON: Chest 04/15/2017. FINDINGS: The cardiac silhouette is normal in size. No pleural effusions. No pneumothorax. Mild diffu se interstitial thickening, unchanged. This is likely chronic. No new focal lung consolidations to sahu ggest pneumonia. No evidence for pulmonary edema. IMPRESSION: No significant change compared to the prior study. No acute process. ACT 112: Negative or not required by law. Electronically signed by: Sudarshan Kearns M.D. 05/01/2020 8:04 AM
[2020-05-01 08:25] LABS: Estimated Average Glucose 111 mg/dl; Hemoglobin A1C 5.5 % (4.5-5.6)
[2020-05-01] MEDS ORDERED: MULTIVITAMIN TAB PO SCH (09:00)
[2020-05-01] MEDS ORDERED: ATORVASTATIN 20 MG TAB PO SCH (09:00)
[2020-05-01] MEDS ORDERED: ASPIRIN 81 MG ECTAB PO SCH (09:00)
[2020-05-01] MEDS ORDERED: PANTOprazole 40 MG TAB PO SCH (09:00)
[2020-05-01] MEDS ORDERED: HEPARIN SOD 5,000 UNIT/0.5 ML VIAL SQ SCH (09:00)
--- NOTE | 2020-05-01 09:41 | XCELERA ---
[id number]
--- NOTE | 2020-05-01 11:48 | Cardiology Consultation ---
Date of Consultation May 01, 2020 Assessment & Plan (1) Atrial fibrillation with rapid ventricular response: -the patient has spontaneously converted to sinus rhythm. -did have an 8 second post conversion pause (? diltiazem). -has demonstrated some sinus bradycardia which could be related to the diltiazem. -would start long-term anticoagulation with a novel agent (CHADSVasc score is 2). (2) Chest pain: -noncardiac chest pain. -likely musculoskeletal as reproducible on examination. (3) Hypertension: -demonstrates mild LVH on his echocardiogram. (4) Hyperlipidemia: -continue atorvastatin. History of Present Illness Attending Physician: Armando Ruelas, History of Present Illness Mr. Barrett is a 65-year-old male admitted earlier today with chest pain and atrial fibrillation and rapid ventricular response. This consultation was ordered to assist in his management. The patient was in his usual state of health until yesterday afternoon. The patient had just finished shoveling snow for the for the 5th time in 2 days. The patient noted discomfort in the lower sternal region/xiphoid. He had associated lightheadedness and shortness of breath. The patient was concerned, therefore, presented to the emergency room for further care. On arrival here, patient noted to be in atrial fibrillation with a rapid ventricular response. The patient was completely asymptomatic and specifically denied palpitations. The patient was placed on a diltiazem drip and then converted to oral diltiazem. Heart rate was adequately controlled. At 4:00 a.m. this morning, the patient converted to sinus rhythm and had a post conversion 8 second pause. The patient has never known of diagnosis of atrial fibrillation. He has never known of a cardiac event. He has never had a cardiac catheterization. The patient has never experienced exertional angina pectoris or limiting dyspnea. He further denies syncope, presyncope, PND, orthopnea, lower extremity edema, and claudication. Currently, patient is resting comfortably in bed without complaints. Past medical and surgical history 1. Hypertension 2. Mild LVH 3. Hypercholesterolemia 4. Paroxysmal atrial fibrillation-April 2020 5. COPD 6. Pulmonary nodule 7. History of arthroscopic knee surgery Social history and lives with his . 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 Smokes 1/2 pack of cigarettes daily No alcohol Family history Mother at 36 from complications of a motor vehicle accident Father's history is unknown No early coronary artery disease Review of systems A 10 point review systems was negative except for that described above. Allergies Allergy/AdvReac Type Severity Reaction Status Date / Time tetanus toxoid, adsorbed Allergy Severe ANAPHYLAXIS Verified 04/30/20 21:04 Home Medications Medication Instructions Recorded Confirmed Type aspirin 81 mg PO QAM 04/30/20 04/30/20 History atorvastatin 20 mg PO QAM 04/30/20 04/30/20 History multivitamin 1 tab PO QAM 04/30/20 04/30/20 History omeprazole 20 mg PO QAM 04/30/20 04/30/20 History Patient History Medical History (Updated 05/01/20 @ 04:36 by James Mendoza MD) GERD (gastroesophageal reflux disease) Hyperlipidemia Hypertension Pulmonary nodule Social History Smoking Status: Former smoker Tobacco Type: Cigarettes Cigarettes Per Day: 10; Do You Dip or Chew Tobacco: Yes; Hx Alcohol Use: No Hx Substance Use: No Communication Ability: Effective Beliefs That Will Affect Care: None Current Living Situation: Family Other Information That Helps Us Care for You: No Feels Safe at Home: Yes Safety Concerns: Feels Safe At This Time Assistive Devices: None Physical Exam Physical Exam: In general this is a well-developed well-nourished white male in no acute distress. HEENT exam is negative. Neck is supple with full carotid upstrokes. There are no carotid bruits. Jugular venous pressure is flat at 90. There is no thyromegaly. Cardiovascular exam reveals a regular rhythm with a normal S1 and S2. No S3, S4, or murmurs are noted. Lungs are clear without rales, rhonchi, or wheezes. Abdomen is soft and nontender without bruits. Extremities reveal intact radial artery and posterior tibial pulses bilaterally. There is no peripheral edema. Results [facility]) Vital Signs (Past 12 Hours) Vital Signs Temp Pulse Pulse Resp BP BP Pulse Ox 05/01/20 11:31 36.7 C 60 18 131/76 95 05/01/20 07:58 36.7 C 61 18 104/67 93 05/01/20 05:03 36.6 C 55 L 18 104/66 93 05/01/20 00:20 90 04/30/20 23:53 36.6 C 85 18 122/81 95 PG Care Time/CCT Total # of Minutes Spent Total Time Spent with Patient: Total time spent is greater than 50% in coordination of care (as documented) at patient's floor/unit and/or counseling patient: Coding Level of Care Code 62815 OBS Care - Level 3 Diagnoses Atrial fibrillation with rapid ventricular response I48.91 Chest pain R07.9 Hypertension I10 Hyperlipidemia E78.5
--- NOTE | 2020-05-01 12:44 | Discharge Summary ---
Date of Service May 01, 2020 Admission HPI Per Admitting Provider The patient is a 65-year-old male with a past medical history including hypertension, hyperlipidemia, GERD and pulmonary nodule. He was shoveling snow this morning, when shortly thereafter he developed discomfort over his xiphoid process area, and felt lightheaded. When he presented to the emergency department he was found to have increased heart rate, and EKG at that time showed a new diagnosis of atrial fibrillation with RVR. He received Cardizem 25 mg IV and then was started on a Cardizem drip at 5 mg/h by the ED. He was then placed on Cardizem 30 mg p.o. x1 by vt, with Cardizem drip stopped 1 hour later, and will be continued on Cardizem 30 mg p.o. every 6 hours, with breakthrough Cardizem 10 mg IV every 4 hours as needed for heart rate greater than 110 Admission Exam Per Admitting Provider The patient is awake, alert and oriented 3, well developed and well nourished, normocephalic and atraumatic, lying in bed and in no acute distress. HEENT--PERRL, EOMI, mucous membranes and oropharynx dry. Neck--supple. No JVD. No bruits. Thyroid normal, trachea midline, no adenopathy. Heart--tachycardic, irregularly irregular. No murmurs, rubs or gallops. Lungs--clear bilaterally, no respiratory distress, no accessory muscle use. Abdomen--normal bowel sounds and soft. Nontender. Nondistended, no hernias or masses, no organomegaly. Extremities--no cyanosis or clubbing. No edema. Dermatologic--normal skin turgor, normal color, no abnormal lymph nodes, no rash. Neurologic--cranial nerves II through XII grossly intact. Rheumatologic--normal range of motion. Psychiatric--normal affect. Principal Diagnosis new onset afib Discharge Exam General: A&Ox3. NAD. Cooperative. HEENT: Atraumatic, normocephalic. Pulm: CTAB A&P. -wheezes, -rales, -rhonchi. Symmetrical chest rise. No increase work of breathing. No respiratory distress. Cardiac: RRR, -mrg. Radial pulses intact and symmetrical. Abdominal: soft, non-tender, non-distended, BS x 4 Discharge Data Allergies Allergy/AdvReac Type Severity Reaction Status Date / Time tetanus toxoid, adsorbed Allergy Severe ANAPHYLAXIS Verified 04/30/20 21:04 Consultations 04/30/20 21:41 ED Decision to Admit Stat 05/01/20 00:20 Consult Cardiology Routine Consult Case Management - Discharge Planning Routine Ordered Studies 04/30/20 21:40 CT abd pelvis wo con Urgent Hospital Course (1) Atrial fibrillation with rapid ventricular response: Rolando Barrett is a 65-year-old male with a past medical history including hypertension, hyperlipidemia, GERD and pulmonary nodule who was admitted to [facility] on 05/01/2020 for a-fib with RVR and chest pain A-fib with RVR - new-onset during physical activity, rates up to 160s in ED - rates improved to <100 after several Diltiazem doses, converted to NSR several hours later - start Toprol XL 25 mg PO daily on discharge for rate-control - CHADS-VASc score of 2 - started on Eliquis 5mg PO BID on discharge - continue regular home medications - f/u with PCP Chest Pain - negative ACS w/u with EKG, negative Trop, TTE unremarkable - suspect MSK etiology such as costochondritis based on reproducibility on exam - f/u with PCP as above HLD - consider titrating Atorvastatin to 40mg as outpatient (2) Chest pain: (3) Hypertension: (4) Hyperlipidemia: Total Time Total Time Spent Total Time Spent (In Minutes): <30 Discharge Plan Discharge Items Patient Disposition: Home - Self-Care Reason For Visit: ATRIAL FIB WITH RVR Discharge Diagnosis: Atrial Fibrillation with Rapid Ventricular Response Activity: Per Instructions section Non-emergency contact: Primary Care Provider Call non-emergency contact if: you have any medication questions and your symptoms worsen Follow-up/Referrals: Mari Quick CRNP [Primary Care Provider] - 05/09/20 10:30 am (NATHALY Andrade is unavailable. Please follow up with Dr. Hodges on 05/09/20 at 10:30 am. Please arrive to the office 15 minutes for your appointment. If you are unable to keep this appointment, please call the office to reschedule at [phone].) Leonardo Linn MD [Resident] - Diet: Heart Healthy Addtl Attending Provider Instructions: You were admitted to [facility] on 04/30/2020 for an irregularly fast heart rate called atrial fibrillation with rapid ventricular response. You were given both IV and oral versions of a rate-control medication called Diltiazem, which successfully controlled your heart rates to 60-70 beats per minute (normal). Additionally you came to the hospital with chest pain that was concerning to be coming from your heart. You had a thorough work-up done which, thankfully, almost completely excluded a cardiac (heart-related) cause of your chest pain - this chest pain is likely due to your chronic heart burn, a muscle strain, or the discomfort associated with a fast, irregular heart rate. Nonetheless, we recommend that you get another stress test done after discharge, which can be arranged by your PCP. You will also be discharged with a new blood-thinning medication called Eliquis, which will help to reduce your chance of stroke (brain damage from a blood clot) which can happen with someone who has atrial fibrillation. Lastly, you will be started on a rate-controlling medication called Toprol which will help to keep your heart rate from getting too fast and will also help to improve the health of your heart. You should continue to take all of your regular home medications as prescribed. We hope you feel better, and it was a pleasure to help provide your care while you were hospitalized. Pending Studies at Discharge: No Stand-Alone Forms: My [facility], Smoking Cessation Medications and DC Order Prescriptions: New Eliquis 5 mg tablet 5 mg PO BID Qty: 60 RF: 3 metoprolol succinate [Toprol XL] 25 mg tablet extended release 24 hr 25 mg PO DAILY Qty: 30 RF: 2 Continued multivitamin Tablet 1 tab PO QAM RF: 0 atorvastatin 20 mg tablet 20 mg PO QAM RF: 0 aspirin 81 mg Tablet,Delayed Release (Dr/Ec) 81 mg PO QAM RF: 0 omeprazole 20 mg capsule,delayed release(DR/EC) 20 mg PO QAM RF: 0 Discharge Orders: Discharge Order (Routine); Ordered 05/01/20 Ordered By: Leonardo Linn Admission Data Admit Date/Time: 04/30/20 22:53 Attending Provider: Armando Ruelas Admit Provider: James Mendoza Primary Care Provider: Mari Quick Other Providers: James Mendzoa ; Juan Gates Other Interventions: Discharge Summary Assessment (RN) Last Done: 05/01/20 14:55 Supervising Physician Co-Signing Physician Notes I personally examined the patient and verified all fitzpatrick points of history and exam, discussed case, and agree with decision making with Dr Linn. feeling better wants to go home discussed dx and plans, case d/w cardiology vitals noted nad heent nc at mmm breathing unlabored no accessory muscles good effort skin no rashes no pallor or icterus new onset afib -now controlled (returned to sinus) -rate control - low dose metoprolol -anticoagulation - DOAC stable for home, close outpt f/u Resident Activity Tracking Resident Involvement: Resident Care Provided Care Provided: Adult Hospital Medicine
--- NOTE | 2020-05-01 16:01 | Electrocardiogram Report ---
Test Reason : Blood Pressure : / mmHG Vent. Rate : 142 BPM Atrial Rate : 122 BPM P-R Int : 000 ms QRS Dur : 082 ms QT Int : 304 ms P-R-T Axes : 000 -58 051 degrees QTc Int : 467 ms Atrial fibrillation with rapid ventricular response Left axis deviation Nonspecific ST abnormality Abnormal ECG When compared with ECG of 15-APR-2017 12:30, Atrial fibrillation has replaced Sinus rhythm Vent. rate has increased BY [address] now depressed in Anterolateral leads Confirmed by Brayden Martines ([id number]) on 05/01/2020 4:00:55 PM Referred By: REFERRED SELF Confirmed By:Brayden Martines
--- NOTE | 2020-05-01 17:13 | Billing Data ---
Date of Service May 01, 2020 Coding Level of Care Code 31473 OBS Care - Discharge
== END 2020-05-01 16:06 | disposition home or self-care (01) ==
LOC: ED 20:33 → 2S 20:33 → SUATTDRO 22:53 → 2S 23:39

== ENCOUNTER 2021-11-22 10:29 | Observation (INO) ==
[2021-11-22] MEDS ORDERED: SODIUM CHLORIDE 0.9% 500 ML IV STA (10:48)
[2021-11-22] MEDS ORDERED: ONDANSETRON INJ 2 MG/ML 2 ML VIAL IV STA (10:49)
[2021-11-22] MEDS ORDERED: MoRPHine SULFATE 4 MG/ML 1 ML CARP\\VIAL IV STA ×3 (10:49→16:55)
--- NOTE | 2021-11-22 10:51 | Emergency Department Note ---
Impression & Plan Chest pain ADMIT ED Provider Note HPI: The patient is a 66-year-old male with history of paroxysmal atrial fibrillation, on anticoagulation, former smoker, who presents the emergency department with a chief complaint of left lower chest discomfort that radiates to the left back area. Patient states that his symptoms have been worsening since this morning. Patient denies any current shortness of breath. On arrival the patient is noted to be bradycardic, he is otherwise with stable blood pressure and he saturating well on room air. ROS: -Cardio: Left-sided chest pain *10 point review systems was conducted and is otherwise negative unless stated above *Outpatient medications and allergy history reviewed PE: General: Alert, distress secondary to chest discomfort HEENT: Normocephalic, atraumatic Eyes: Extraocular eye movement is intact, no scleral erythema Pulmonary: Clear to auscultation bilaterally, no wheezing Cardio: Regular rate and rhythm GI: Abdomen is soft, nontender : No suprapubic tenderness MSK: No evidence of trauma or malformation of the extremities, no edema Skin: No evidence of rash Neuro: Alert, no focal deficits Psychiatric: Cooperative panel monitor: - An order was placed for continuous cardiac monitoring - Patient was noted to be in rhythm with a rate of 52 EKG: Rate: 54 Rhythm: Sinus bradycardia Intervals: Within normal limits ST changes: No ST elevation, T wave inversion is now noted in inferior leads bernice ears new from comparison EKG Time : 1108 Medical Decision Making: Patient presented to the emergency department chief complaint of left-sided chest discomfort, his pain is relatively well localized to the area of the left lateral mid ribs. Patient states it does radiate somewhat towards his back. CT angiography of the chest was obtained and does not show any evidence of pulmonary embolism, does show possible infectious versus inflammatory pneumonitis type changes. Troponin is negative x1 here in the ED, EKG shows some T wave inversions in the inferior leads without any ST elevation. Patient was given aspirin in the ED as well as multiple doses of morphine. On my reassessment following a negative delta troponin 2 hours after the first, patient states he is still having some discomfort. Given ongoing chest discomfort as well as multiple risk factors and focal T wave changes, I feel the patient should be admitted for further management. Case was discussed with the on-call hospitalist and the patient was admitted to a telemetry bed in stable condition for further care. Diagnosis: 1. Nonspecific chest pain, acute 2. EKG changes/T wave inversions in inferior leads Disposition: Admission Ender Gómez DO Emergency Medicine Past Med/Surg History Medical History Asthma NO INHALERS, REPORTS D.O.E Atrial fibrillation DX APR 2020> ELIQUIS/TOPROL > FOLLOWS [facility] Chest pain (06/19/13) Difficulty swallowing REASON FOR PROCEDURE GERD (gastroesophageal reflux disease) Hyperlipidemia Hypertension Osteoarthritis Pulmonary nodule Surgical History History of arthroscopy RIGHT WRIST> DUE TO INJURY / LEFT KNEE History of colonoscopy History of esophagogastroduodenoscopy (EGD) History of tonsillectomy Social History Smoking Status: Former smoker Tobacco Type: Cigarettes Cigarettes Per Day: 20; Second Hand Exposure: No; Hx Alcohol Use: Yes Hx Substance Use: No Preferred Language: Spanish Communication Ability: Effective Manager Metal Required: No Beliefs That Will Affect Care: None Current Living Situation: Spouse Feels Safe at Home: Yes Assistive Devices: Glasses Allergies Allergies Allergy/AdvReac Type Severity Reaction Status Date / Time tetanus toxoid, adsorbed Allergy Severe ANAPHYLAXIS Verified 09/04/20 13:14 Home Meds Home Medications Medication Instructions Recorded Confirmed aspirin 81 mg tablet,delayed 81 mg PO QAM 04/30/20 09/04/20 release atorvastatin 20 mg tablet 20 mg PO QAM 04/30/20 09/04/20 multivitamin 1 tab PO QAM 04/30/20 09/04/20 omeprazole 20 mg capsule,delayed 20 mg PO QAM 04/30/20 09/04/20 release metoprolol succinate 25 mg 25 mg PO QAM 08/29/20 09/04/20 tablet,extended release 24 hr (Toprol XL) Previous Rx's Medication Instructions Recorded apixaban 5 mg tablet (Eliquis) 5 mg PO BID #60 tabs 05/01/20 methylprednisolone 4 mg tablets in 4 mg PO DIRECTED #21 ea 01/03/21 a dose pack (Medrol (Baldemar)) Results & Data (ED) Vital Signs Vital Signs - 24 hr 11/22/21 10:41 11/22/21 11:14 11/22/21 11:15 Temperature 36.5 C Temperature Source Temporal Artery Scan Pulse Rate 72 52 L Pulse Rate [Apical] 55 L Pulse Rate from SpO2 Sensor Respiratory Rate 20 20 20 Respiratory Effort / Characteristics Non-Labored Spontaneous Respiratory Depth Normal Respiratory Pattern Regular Blood Pressure 130/74 Blood Pressure [Left Arm] 137/79 Blood Pressure Mean 92 Blood Pressure Mean [Left Arm] 98 Pulse Oximetry 94 92 92 Oxygen Delivery Method Room Air Room Air Room Air Sepsis Recent Fever Within 48 Hours No Sepsis New/Unexplained Change in Mental Status N/A Sepsis Action Taken by Nursing No Action Required 11/22/21 11:30 11/22/21 11:30 11/22/21 12:00 Temperature Temperature Source Pulse Rate 57 L Pulse Rate [Apical] Pulse Rate from SpO2 Sensor 56 L Respiratory Rate 19 Respiratory Effort / Characteristics Respiratory Depth Respiratory Pattern Blood Pressure 127/73 123/70 Blood Pressure [Left Arm] Blood Pressure Mean 91 87 Blood Pressure Mean [Left Arm] Pulse Oximetry 91 Oxygen Delivery Method Sepsis Recent Fever Within 48 Hours Sepsis New/Unexplained Change in Mental Status Sepsis Action Taken by Nursing 11/22/21 12:00 11/22/21 12:30 11/22/21 12:30 Temperature Temperature Source Pulse Rate 56 L 52 L Pulse Rate [Apical] Pulse Rate from SpO2 Sensor 56 L 51 L Respiratory Rate 17 17 Respiratory Effort / Characteristics Respiratory Depth Respiratory Pattern Blood Pressure 119/67 Blood Pressure [Left Arm] Blood Pressure Mean 84 Blood Pressure Mean [Left Arm] Pulse Oximetry 92 93 Oxygen Delivery Method Sepsis Recent Fever Within 48 Hours Sepsis New/Unexplained Change in Mental Status Sepsis Action Taken by Nursing 11/22/21 13:00 11/22/21 13:00 11/22/21 13:30 Temperature Temperature Source Pulse Rate 52 L Pulse Rate [Apical] Pulse Rate from SpO2 Sensor 52 L Respiratory Rate 16 Respiratory Effort / Characteristics Respiratory Depth Respiratory Pattern Blood Pressure 127/75 119/64 Blood Pressure [Left Arm] Blood Pressure Mean 92 82 Blood Pressure Mean [Left Arm] Pulse Oximetry 94 Oxygen Delivery Method Sepsis Recent Fever Within 48 Hours Sepsis New/Unexplained Change in Mental Status Sepsis Action Taken by Nursing 11/22/21 13:30 11/22/21 14:00 11/22/21 14:01 Temperature Temperature Source Pulse Rate 54 L 51 L Pulse Rate [Apical] Pulse Rate from SpO2 Sensor 53 L 50 L Respiratory Rate 18 16 Respiratory Effort / Characteristics Respiratory Depth Respiratory Pattern Blood Pressure 128/84 Blood Pressure [Left Arm] Blood Pressure Mean 98 Blood Pressure Mean [Left Arm] Pulse Oximetry 93 95 Oxygen Delivery Method Sepsis Recent Fever Within 48 Hours Sepsis New/Unexplained Change in Mental Status Sepsis Action Taken by Nursing 11/22/21 14:01 11/22/21 14:30 11/22/21 14:30 Temperature Temperature Source Pulse Rate 50 L 49 L Pulse Rate [Apical] Pulse Rate from SpO2 Sensor 48 L 49 L Respiratory Rate 17 15 Respiratory Effort / Characteristics Respiratory Depth Respiratory Pattern Blood Pressure 146/77 H Blood Pressure [Left Arm] Blood Pressure Mean 100 Blood Pressure Mean [Left Arm] Pulse Oximetry 95 95 Oxygen Delivery Method Sepsis Recent Fever Within 48 Hours Sepsis New/Unexplained Change in Mental Status Sepsis Action Taken by Nursing 11/22/21 15:00 11/22/21 15:00 11/22/21 15:30 Temperature Temperature Source Pulse Rate 46 L 47 L Pulse Rate [Apical] Pulse Rate from SpO2 Sensor 46 L 47 L Respiratory Rate 14 16 Respiratory Effort / Characteristics Respiratory Depth Respiratory Pattern Blood Pressure 124/79 Blood Pressure [Left Arm] Blood Pressure Mean 94 Blood Pressure Mean [Left Arm] Pulse Oximetry 96 96 Oxygen Delivery Method Sepsis Recent Fever Within 48 Hours Sepsis New/Unexplained Change in Mental Status Sepsis Action Taken by Nursing 11/22/21 15:30 11/22/21 15:40 Temperature Temperature Source Pulse Rate 47 L Pulse Rate [Apical] Pulse Rate from SpO2 Sensor 47 L Respiratory Rate 15 Respiratory Effort / Characteristics Respiratory Depth Respiratory Pattern Blood Pressure 121/75 Blood Pressure [Left Arm] Blood Pressure Mean 90 Blood Pressure Mean [Left Arm] Pulse Oximetry 96 Oxygen Delivery Method Sepsis Recent Fever Within 48 Hours Sepsis New/Unexplained Change in Mental Status Sepsis Action Taken by Nursing Laboratory Data Result diagrams: 11/22/21 11:10 11/22/21 11:10 Lab Results 11/22/21 11/22/21 11/22/21 Range/Units 11:10 11:10 11:10 WBC 7.34 (4.8-10.8) K/ul RBC 5.27 (4.63-6.08) M/uL Hgb 14.8 (14.0-18.0) g/dl Hct 43.6 (40.1-51.0) % MCV 82.7 (80.0-100.0) fL MCH 28.1 (25.0-34.0) pg MCHC 33.9 (32.0-36.0) g/dL RDW Std Deviation 38.3 (36.4-46.3) fL RDW Coeff of Zay 12.7 (11.5-14.5) % Plt Count 122 L (130-400) K/uL MPV 10.9 (9.4-12.4) fL Immature Gran % (Auto) 0.4 % Neut % (Auto) 80.4 % Lymph % (Auto) 10.6 % Early % (Auto) 6.7 % Eos % (Auto) 1.2 % Baso % (Auto) 0.7 % Neut # (Auto) 5.90 (1.4-6.5) K/uL Lymph # (Auto) 0.78 L (1.2-3.4) K/uL Early # (Auto) 0.49 (0.24-0.82) K/uL Eos # (Auto) 0.09 (0-0.50) K/uL Baso # (Auto) 0.05 (0-0.2) K/uL Immature Gran # (Auto) 0.03 H (0.00-0.02) K/uL PT 10.9 (9.0-12.0) Seconds INR 1.0 (0.9-1.1) APTT 33.6 H (21.0-31.0) Seconds PTT Ratio 1.2 Sodium 142 (136-145) mmol/L Potassium 3.8 (3.5-5.1) mmol/L Chloride 110 H (98-107) mmol/L Carbon Dioxide 20 L (21-32) mmol/L Anion Gap 12 H (3-11) BUN 17 (6-23) mg/dl Creatinine 1.20 (0.6-1.4) mg/dl Est Cr Clr Drug Dosing 70.1 ml/min Est GFR ( Amer) 71.6 ml/min Est GFR (Non-Af Amer) 61.8 ml/min BUN/Creatinine Ratio 14.2 (10-20) Glucose 104 H (70-99(Fasting)) mg/dl Calcium 9.2 (8.5-10.1) mg/dl Total Bilirubin 0.9 (0.2-1.0) mg/dl AST 15 (13-39) U/L ALT 15 (7-52) U/L Alkaline Phosphatase 133 H (34-104) U/L Troponin I High Sens 6.6 (0-20) pg/ml Total Protein 6.3 (6.0-8.3) gm/dl Albumin 4.0 (3.4-5.0) gm/dl Globulin 2.3 L (2.5-4.0) gm/dl Albumin/Globulin Ratio 1.7 (0.9-2) Lipase 27 (11-82) U/L 11/22/21 Range/Units 15:30 WBC (4.8-10.8) K/ul RBC (4.63-6.08) M/uL Hgb (14.0-18.0) g/dl Hct (40.1-51.0) % MCV (80.0-100.0) fL MCH (25.0-34.0) pg MCHC (32.0-36.0) g/dL RDW Std Deviation (36.4-46.3) fL RDW Coeff of Zay (11.5-14.5) % Plt Count (130-400) K/uL MPV (9.4-12.4) fL Immature Gran % (Auto) % Neut % (Auto) % Lymph % (Auto) % Early % (Auto) % Eos % (Auto) % Baso % (Auto) % Neut # (Auto) (1.4-6.5) K/uL Lymph # (Auto) (1.2-3.4) K/uL Early # (Auto) (0.24-0.82) K/uL Eos # (Auto) (0-0.50) K/uL Baso # (Auto) (0-0.2) K/uL Immature Gran # (Auto) (0.00-0.02) K/uL PT (9.0-12.0) Seconds INR (0.9-1.1) APTT (21.0-31.0) Seconds PTT Ratio Sodium (136-145) mmol/L Potassium (3.5-5.1) mmol/L Chloride (98-107) mmol/L Carbon Dioxide (21-32) mmol/L Anion Gap (3-11) BUN (6-23) mg/dl Creatinine (0.6-1.4) mg/dl Est Cr Clr Drug Dosing ml/min Est GFR ( Amer) ml/min Est GFR (Non-Af Amer) ml/min BUN/Creatinine Ratio (10-20) Glucose (70-99(Fasting)) mg/dl Calcium (8.5-10.1) mg/dl Total Bilirubin (0.2-1.0) mg/dl AST (13-39) U/L ALT (7-52) U/L Alkaline Phosphatase (34-104) U/L Troponin I High Sens 6.7 (0-20) pg/ml Total Protein (6.0-8.3) gm/dl Albumin (3.4-5.0) gm/dl Globulin (2.5-4.0) gm/dl Albumin/Globulin Ratio (0.9-2) Lipase (11-82) U/L Administered Medications Discontinued Medications Sodium Chloride (Nss) 500 mls @ 999 mls/hr IV .Q31M STA Stop: 11/22/21 11:18 Last Infusion: 11/22/21 13:45 Dose: 0 mls/hr Documented By: Admin: 11/22/21 11:14 Dose: 999 mls/hr Documented By: BERTO Ioversol (Optiray 300 500ml) 117 ml IV ONCE ONE Stop: 11/22/21 13:45 Last Admin: 11/22/21 13:45 Dose: 117 ml Documented By: KEE Morphine Sulfate (Morphine Sulfate 4 Mg/Ml 1 Ml Carp\Vial) 4 mg IV NOW STA Stop: 11/22/21 10:50 Last Admin: 11/22/21 11:11 Dose: 4 mg Documented By: BERTO Morphine Sulfate (Morphine Sulfate 4 Mg/Ml 1 Ml Carp\Vial) 4 mg IV NOW STA Stop: 11/22/21 12:53 Last Admin: 11/22/21 12:56 Dose: 4 mg Documented By: LACIE Ondansetron HCl (Ondansetron Inj 2 Mg/Ml 2 Ml Vial) 4 mg IV NOW STA Stop: 11/22/21 10:50 Last Admin: 11/22/21 11:11 Dose: 4 mg Documented By: BERTO Imaging Data Radiologist's Impression: Chest CTA 11/22/21 10:49 CT ANGIOGRAM OF THE CHEST CLINICAL HISTORY: Atypical chest pain. COMPARISON STUDY: Chest x-ray dated 07/01/2020. Chest CT dated 05/14/2020. TECHNIQUE: Following the IV administration of 117 cc of Optiray 300, CT angiogram of the chest was performed from the upper abdomen to the thoracic inlet utilizing the pulmonary embolus protocol. Images are reviewed in the axial, sagittal, and coronal planes. 3-D MIPS images are created and assessed. IV contrast was administered without complication. A dose lowering technique was utilized adhering to the principles of ALARA. CT DOSE: 397.53 mGy.cm FINDINGS: Thyroid: Imaged portions of the thyroid gland are normal in size and attenuation. Thoracic aorta: The thoracic aorta is normal in caliber and demonstrates standard 3-vessel arch anatomy. No dissection is seen. Pulmonary vasculature: The pulmonary trunk is normal in caliber. There are no filling defects identified in main, lobar, or segmental pulmonary branches to suggest pulmonary embolus. Heart: The heart is normal in size and without pericardial effusion. There are scattered coronary artery calcifications. Lungs and pleural spaces: There is moderate to advanced emphysema. The trachea and central airways are clear. Dependent consolidation is present at both lung bases, left greater than right. No pleural effusion is identified. A 5 mm right apical pulmonary nodule image #197 is unchanged, as are foci of pleural-based nodularity along the right major fissure measuring up to 7 mm. Mediastinum: There is no mediastinal lymphadenopathy. Nano: Clear. Axillae: There is no axillary lymphadenopathy. Upper abdomen: A small hiatal hernia is noted. Partially visualized upper abdominal viscera is otherwise grossly unremarkable. Skeletal structures: The skeletal structures are osteopenic. Degenerative change is noted throughout the thoracic spine. No lytic or blastic bony lesions are seen. Soft tissues: A 1.6 cm sebaceous cyst is noted in the right upper back. IMPRESSION: 1. There is no evidence of pulmonary embolus in the main, lobar, or segmental pulmonary arteries. 2. Airspace consolidation is seen at both lung bases, left greater than right. The appearance is typical for an infectious/inflammatory pneumonitis. Clinical correlation will be required and radiographic follow-up to resolution is recom mended. 3. Emphysema. 4. Subcentimeter pulmonary and pleural-based nodules are similar to the 05/04/[address] 5. Additional findings as above. ACT 112: Negative or not required by law. Electronically signed by: Luis Almeida M.D. 11/22/2021 2:49 PM Discharge Plan Visit Data Chief Complaint: Rib Injury/Pain Stated Complaint: PAIN IN UPPER RIB AREA WITH BREATHING ED Provider: Ender Gómez Discharge Problem: Chest pain Forms Stand Alone Forms: [facility] Prescriptions Prescriptions: No Action multivitamin Tablet 1 tab PO QAM atorvastatin 20 mg tablet 20 mg PO QAM aspirin 81 mg Tablet,Delayed Release (Dr/Ec) 81 mg PO QAM omeprazole 20 mg capsule,delayed release(DR/EC) 20 mg PO QAM Eliquis 5 mg tablet 5 mg PO BID Qty: 60 3RF metoprolol succinate [Toprol XL] 25 mg tablet extended release 24 hr 25 mg PO QAM methylprednisolone [Medrol (Baldemar)] 4 mg tablets,dose pack 4 mg PO DIRECTED Qty: 21 0RF Referrals Referrals: Mari Quick CRNP [Primary Care Provider] - : Chest pain Qualifiers: Chest pain type: unspecified Qualified Code(s): R07.9 - Chest pain, unspecified
[2021-11-22 12:13] LABS: Partial Thromboplastin Ratio 1.2; Partial Thromboplastin Time 33.6 Seconds (21.0-31.0); Prothrombin Time 10.9 Seconds (9.0-12.0)
[2021-11-22 12:17] LABS: Hematocrit (blood only) 43.6 % (40.1-51.0); Hemoglobin 14.8 g/dl (14.0-18.0); Mean Corpuscular Hemoglobin 28.1 pg (25.0-34.0); Mean Corpuscular Hgb Conc 33.9 g/dL (32.0-36.0); Mean Corpuscular Volume 82.7 fL (80.0-100.0); Mean Platelet Volume 10.9 fL (9.4-12.4); Platelet Count 122 K/uL (130-400); RDW Coefficient of Variation 12.7 % (11.5-14.5); RDW Standard Deviation 38.3 fL (36.4-46.3); Red Blood Count 5.27 M/uL (4.63-6.08); White Blood Count 7.34 K/ul (4.8-10.8)
[2021-11-22 12:21] LABS: Troponin I High Sensitivity 6.6 pg/ml (0-20)
[2021-11-22 12:33] LABS: Basophils # (auto) 0.05 K/uL (0-0.2); Basophils % (auto) 0.7 %; Eosinophils # (auto) 0.09 K/uL (0-0.50); Eosinophils % (auto) 1.2 %; Immature Granulocytes # (auto) 0.03 K/uL (0.00-0.02); Immature Granulocytes % (auto) 0.4 %; Lymphocytes # (auto) 0.78 K/uL (1.2-3.4); Lymphocytes % (auto) 10.6 %; Monocytes # (auto) 0.49 K/uL (0.24-0.82); Monocytes % (auto) 6.7 %; Neutrophils % (auto) 80.4 %
[2021-11-22 13:34] LABS: Albumin Globulin Ratio 1.7 (0.9-2); BUN Creatinine Ratio 14.2 (10-20); Bilirubin,Total 0.9 mg/dl (0.2-1.0); Calcium 9.2 mg/dl (8.5-10.1); Creatinine Clr Calc Pharmacy 70.1 ml/min; Est GFR (African American) 71.6 ml/min; Est GFR (Non-African American) 61.8 ml/min; Globulin 2.3 gm/dl (2.5-4.0); Potassium 3.8 mmol/L (3.5-5.1); Total Protein 6.3 gm/dl (6.0-8.3)
[2021-11-22] MEDS ORDERED: OPTIRAY 300 500mL IV ONE (13:44)
--- NOTE | 2021-11-22 14:51 | CT Scan Report ---
CT ANGIOGRAM OF THE CHEST CLINICAL HISTORY: Atypical chest pain. COMPARISON STUDY: Chest x-ray dated 07/01/2020. Chest CT dated 05/14/2020. TECHNIQUE: Following the IV administration of 117 cc of Optiray 300, CT angiogram of the chest was pe rformed from the upper abdomen to the thoracic inlet utilizing the pulmonary embolus protocol. Images are reviewed in the axial, sagittal, and coronal planes. 3-D MIPS images are created and assessed. I V contrast was administered without complication. A dose lowering technique was utilized adhering to the principles of ALARA. CT DOSE: 397.53 mGy.cm FINDINGS: Thyroid: Imaged portions of the thyroid gland are normal in size and attenuation. Thoracic aorta: The thoracic aorta is normal in caliber and demonstrates standard 3-vessel arch anato my. No dissection is seen. Pulmonary vasculature: The pulmonary trunk is normal in caliber. There are no filling defects identif ied in main, lobar, or segmental pulmonary branches to suggest pulmonary embolus. Heart: The heart is normal in size and without pericardial effusion. There are scattered coronary art kassy calcifications. Lungs and pleural spaces: There is moderate to advanced emphysema. The trachea and central airways ar e clear. Dependent consolidation is present at both lung bases, left greater than right. No pleural e ffusion is identified. A 5 mm right apical pulmonary nodule image #197 is unchanged, as are foci of p leural-based nodularity along the right major fissure measuring up to 7 mm. Mediastinum: There is no mediastinal lymphadenopathy. Nano: Clear. Axillae: There is no axillary lymphadenopathy. Upper abdomen: A small hiatal hernia is noted. Partially visualized upper abdominal viscera is otherw ise grossly unremarkable. Skeletal structures: The skeletal structures are osteopenic. Degenerative change is noted throughout the thoracic spine. No lytic or blastic bony lesions are seen. Soft tissues: A 1.6 cm sebaceous cyst is noted in the right upper back. IMPRESSION: 1. There is no evidence of pulmonary embolus in the main, lobar, or segmental pulmonary arteries. 2. Airspace consolidation is seen at both lung bases, left greater than right. The appearance is typi ry for an infectious/inflammatory pneumonitis. Clinical correlation will be required and radiographi c follow-up to resolution is recommended. 3. Emphysema. 4. Subcentimeter pulmonary and pleural-based nodules are similar to the 05/04/[address]. 5. Additional findings as above. ACT 112: Negative or not required by law. Electronically signed by: Luis Almeida M.D. 11/22/2021 2:49 PM
--- NOTE | 2021-11-22 16:09 | Electrocardiogram Report ---
Test Reason : Blood Pressure : / mmHG Vent. Rate : 054 BPM Atrial Rate : 054 BPM P-R Int : 152 ms QRS Dur : 088 ms QT Int : 410 ms P-R-T Axes : 134 -28 -25 degrees QTc Int : 388 ms Sinus bradycardia Left axis deviation Borderline ECG When compared with ECG of 01-JUL-2020 20:36, Sinus bradycardia has replaced Sinus rhythm T wave inversion now evident in Inferior leads T wave amplitude has decreased in Anterolateral leads Confirmed by Antwan Farr ([id number]) on 11/22/2021 4:08:39 PM Referred By: REFERRED SELF Confirmed By:Antwan Farr
[2021-11-22] MEDS ORDERED: ASPIRIN CHEW 324 MG PO STA (16:55)
--- NOTE | 2021-11-22 17:52 | History & Physical Report ---
Date of Service November 22, 2021 Assessment & Plan (1) Chest pain: Plan: Pain is likely non-cardiac chest pain at this time as it is reproducible with palpation and movement- favoring costrochondirits - Tylenol/Lidocaine patch - Will send Lyme with bradycardia although on BB as well - ECG with non specific T wave inversions- trend HScTNI and ECG in morning - CRP and PCT pending ECHO in 2020 for non cardiac chest pain admission EF 60-65% with borderline LVH with trace MR (2) COPD (chronic obstructive pulmonary disease): Plan: History of smoking, quit. No PFTs in our system - reports that he is just on albuterol inhaler and nebulizer at home - no other inhalers notable in medication review history - continue SAM (3) Abnormal CT scan: Plan: With pneumonitis/inflammation bilateral lungs right >LT - he is without fever or change in cough - CRP mildly elevated - PCT pending - Will give dose of Rocephin defer to [facility]ers tomorrow to continue - denies any recent viral symptoms - COVID negative (4) GERD (gastroesophageal reflux disease): Plan: COntinue PPI (5) Hyperlipidemia: Plan: Continue Statin (6) Hypertension: Plan: Continue BB- follow HR overnight hold for less than 60 HR (7) Afib: Plan: PAF 2019 continue Eliquis Asa History of Present Illness Primary Care Provider: NATHALY Guillen 66 YOM with medical history of: non cardiac chest pain, afib(on Eliquis), COPD, HTN, HLD, GERD, Shingles. Patient comes to the EMD today for complaints of left sided chest wall pain. The onset of this occurred this morning at 0800. Patient states that he was not doing anything when it occurred. It is sharp and stabbing in nature. It radiates around his side into his back. It gets worse with inspiration and coughing or turning and reaching across his chest. In the EMD the patient had routine blood work to include 2 negative HScTNI, CXR, CTA of the chest completed. He was given morphine for his pain, which relieved it but comes back. Hospitalist was consulted for admission. The pain is reproducible at the left 4th intercostal around his side and terminates on the back beside his scapula, this pain is also notable with raising arm up and bringing shoulder blades together. This is the same pain that brought him to the EMD. He states that he did have shingles earlier this year sometime. He normally gets majority of his care at the [facility]. ECG is without any STEMI. He will be admitted to medical telemetry to follow rhythm overnight. Will obtain HScTNI this evening and in AM. Will start on Lidocaine patch, provide tylenol. His CT scan was notable for right lower lobe pneumonitis/inflammation. He is without WBC count or fevers, CRP and PCT pending. Lyme sent. He has had negative stress test in 2019 and never had cath done that he knows of. COVID test on admission is: PENDING Allergies Allergy/AdvReac Type Severity Reaction Status Date / Time tetanus toxoid, adsorbed Allergy Severe ANAPHYLAXIS Verified 11/22/21 18:18 Home Medications Medication Instructions Recorded Confirmed Type atorvastatin 20 mg tablet 20 mg PO QAM 04/30/20 11/22/21 History multivitamin 1 tab PO QAM 04/30/20 11/22/21 History omeprazole 20 mg capsule,delayed 20 mg PO QAM 04/30/20 11/22/21 History release apixaban 5 mg tablet (Eliquis) 5 mg PO BID #60 tabs 05/01/20 11/22/21 Rx metoprolol succinate 25 mg 25 mg PO QAM 08/29/20 11/22/21 History tablet,extended release 24 hr (Toprol XL) albuterol sulfate 90 mcg/actuation 1 inh inhalation HS 11/22/21 11/22/21 History aerosol inhaler olodaterol 2.5 mcg/actuation mist 2 inh inhalation BID 11/22/21 11/22/21 History for inhalation Past Med/Surg History Medical History (Updated 11/22/21 @ 18:11 by NATHALY English) Afib Asthma NO INHALERS, REPORTS D.O.E Atrial fibrillation DX APR 2020> ELIQUIS/TOPROL > FOLLOWS [facility] Bradycardia Chest pain (06/19/13) Difficulty swallowing REASON FOR PROCEDURE GERD (gastroesophageal reflux disease) Hyperlipidemia Hypertension Osteoarthritis Pulmonary nodule Surgical History History of arthroscopy RIGHT WRIST> DUE TO INJURY / LEFT KNEE History of colonoscopy History of esophagogastroduodenoscopy (EGD) History of tonsillectomy Social History Smoking Status: Former smoker Tobacco Type: Cigarettes Cigarettes Per Day: 20; Smoking End Date: 2015; Second Hand Exposure: No; Do You Dip or Chew Tobacco: No; Tobacco Cessation Education Requested by Patient: No Hx Alcohol Use: No Hx Substance Use: No Preferred Language: Omani Communication Ability: Effective Animal Groomer Required: No Beliefs That Will Affect Care: None Current Living Situation: Spouse Other Information That Helps Us Care for You: No Feels Safe at Home: Yes Safety Concerns: Feels Safe At This Time Assistive Devices: Glasses and Hearing Aid - Bilateral Review of Systems Review of Systems: REVIEW OF SYSTEMS: Constitutional: No fever, sweats or chills Eyes: No diplopia, no worsening or blurred vision ENT: normal hearing, no trouble swallowing Respiratory: No change in cough, sputum, dyspnea at rest or on exertion Cardiovascular: No chest pain, tightness or palpitations Abdomen: No pain, nausea, vomiting, diarrhea or constipation Musculoskeletal: Left sided chest wall pain, No calf pain, swelling Neurologic: No weakness, numbness/tingling, or balance problems Psychiatric: No anxiety or depression Skin: No rash or itch Physical Exam Physical Exam: PHYSICAL EXAM: General: awake, alert, no apparent distress Head: Normocephalic, atraumatic ENT: PERRL, EOMI, no pharyngeal exudate, mucous membranes moist Neuro: AAO x 3, speech clear and appropriate, strength intact bilaterally 5/5, sensation intact and equal all extremities and dermatomes, no pronator drift Chest: equal rise and fall of the chest, no accessory muscle use, no heaves or thrills, Clear to auscultation, on room air, Cardiac: Regular rate and rhythm, telemetry reviewed- Sinus magnolia, skin warm dry, cap refill <3 seconds, peripheral pulses +2 no JVD, no murmur, no edema MSK: Left sided reproducible chest pain worse with inspiration, no change in pain with position, palpable around side to back along shoulder blade GI: NABS x 4 quadrants, soft, nontender to palpation, no rebound, guarding or tenderness : Spontaneously voiding, no pain, no CVA tenderness, Extremities: Normal inspection, no peripheral edema or erythema, calfs nontender to palpation Psych: Normal mood and affect Skin: no rash or erythema Results & Data Results & Data ([facility]) Vital Signs (Past 12 Hours) Vital Signs Temp Pulse Pulse Resp BP BP Pulse Ox 11/22/21 15:40 47 L 15 96 11/22/21 15:30 121/75 11/22/21 15:30 47 L 16 96 11/22/21 15:00 46 L 14 96 11/22/21 15:00 124/79 11/22/21 14:30 49 L 15 95 11/22/21 14:30 146/77 H 11/22/21 14:01 50 L 17 95 11/22/21 14:01 128/84 11/22/21 14:00 51 L 16 95 11/22/21 13:30 54 L 18 93 11/22/21 13:30 119/64 11/22/21 13:00 52 L 16 94 11/22/21 13:00 127/75 11/22/21 12:30 52 L 17 93 11/22/21 12:30 119/67 11/22/21 12:00 56 L 17 92 11/22/21 12:00 123/70 11/22/21 11:30 57 L 19 91 11/22/21 11:30 127/73 11/22/21 11:15 52 L 20 92 11/22/21 11:14 55 L 20 137/79 92 11/22/21 10:41 36.5 C 72 20 130/74 94 O2 Del Method 11/22/21 15:40 11/22/21 15:30 11/22/21 15:30 11/22/21 15:00 11/22/21 15:00 11/22/21 14:30 11/22/21 14:30 11/22/21 14:01 11/22/21 14:01 11/22/21 14:00 11/22/21 13:30 11/22/21 13:30 11/22/21 13:00 11/22/21 13:00 11/22/21 12:30 11/22/21 12:30 11/22/21 12:00 11/22/21 12:00 11/22/21 11:30 11/22/21 11:30 11/22/21 11:15 Room Air 11/22/21 11:14 Room Air 11/22/21 10:41 Room Air Laboratory Results Abnormal lab results 11/22/21 11/22/21 11/22/21 Range/Units 11:10 11:10 11:10 Plt Count 122 L (130-400) K/uL Lymph # (Auto) 0.78 L (1.2-3.4) K/uL Immature Gran # (Auto) 0.03 H (0.00-0.02) K/uL APTT 33.6 H (21.0-31.0) Seconds Chloride 110 H (98-107) mmol/L Carbon Dioxide 20 L (21-32) mmol/L Anion Gap 12 H (3-11) Glucose 104 H (70-99(Fasting)) mg/dl Alkaline Phosphatase 133 H (34-104) U/L C-Reactive Protein (0-0.5) mg/dl Globulin 2.3 L (2.5-4.0) gm/dl 11/22/21 Range/Units 11:10 Plt Count (130-400) K/uL Lymph # (Auto) (1.2-3.4) K/uL Immature Gran # (Auto) (0.00-0.02) K/uL APTT (21.0-31.0) Seconds Chloride (98-107) mmol/L Carbon Dioxide (21-32) mmol/L Anion Gap (3-11) Glucose (70-99(Fasting)) mg/dl Alkaline Phosphatase (34-104) U/L C-Reactive Protein 0.84 H (0-0.5) mg/dl Globulin (2.5-4.0) gm/dl Diagnostic Findings Chest CTA 11/22/21 10:49 CT ANGIOGRAM OF THE CHEST CLINICAL HISTORY: Atypical chest pain. COMPARISON STUDY: Chest x-ray dated 07/01/2020. Chest CT dated 05/14/2020. TECHNIQUE: Following the IV administration of 117 cc of Optiray 300, CT angiogram of the chest was performed from the upper abdomen to the thoracic inlet utilizing the pulmonary embolus protocol. Images are reviewed in the axial, sagittal, and coronal planes. 3-D MIPS images are created and assessed. IV contrast was administered without complication. A dose lowering technique was utilized adhering to the principles of ALARA. CT DOSE: 397.53 mGy.cm FINDINGS: Thyroid: Imaged portions of the thyroid gland are normal in size and attenuation. Thoracic aorta: The thoracic aorta is normal in caliber and demonstrates standard 3-vessel arch anatomy. No dissection is seen. Pulmonary vasculature: The pulmonary trunk is normal in caliber. There are no filling defects identified in main, lobar, or segmental pulmonary branches to suggest pulmonary embolus. Heart: The heart is normal in size and without pericardial effusion. There are scattered coronary artery calcifications. Lungs and pleural spaces: There is moderate to advanced emphysema. The trachea and central airways are clear. Dependent consolidation is present at both lung bases, left greater than right. No pleural effusion is identified. A 5 mm right apical pulmonary nodule image #197 is unchanged, as are foci of pleural-based nodularity along the right major fissure measuring up to 7 mm. Mediastinum: There is no mediastinal lymphadenopathy. Nano: Clear. Axillae: There is no axillary lymphadenopathy. Upper abdomen: A small hiatal hernia is noted. Partially visualized upper abdominal viscera is otherwise grossly unremarkable. Skeletal structures: The skeletal structures are osteopenic. Degenerative change is noted throughout the thoracic spine. No lytic or blastic bony lesions are seen. Soft tissues: A 1.6 cm sebaceous cyst is noted in the right upper back. IMPRESSION: 1. There is no evidence of pulmonary embolus in the main, lobar, or segmental pulmonary arteries. 2. Airspace consolidation is seen at both lung bases, left greater than right. The appearance is typical for an infectious/inflammatory pneumonitis. Clinical correlation will be required and radiographic follow-up to resolution is recommended. 3. Emphysema. 4. Subcentimeter pulmonary and pleural-based nodules are similar to the 05/04/[address] 5. Additional findings as above. ACT 112: Negative or not required by law. Electronically signed by: Luis Almeida M.D. 11/22/2021 2:49 PM Medications Administered Discontinued Medications Aspirin (Aspirin Chew 324 Mg) 324 mg PO NOW STA Stop: 11/22/21 16:56 Last Admin: 11/22/21 17:05 Dose: 324 mg Documented By: LACIE Sodium Chloride (Nss) 500 mls @ 999 mls/hr IV .Q31M STA Stop: 11/22/21 11:18 Last Infusion: 11/22/21 13:45 Dose: 0 mls/hr Documented By: Admin: 11/22/21 11:14 Dose: 999 mls/hr Documented By: BERTO Ioversol (Optiray 300 500ml) 117 ml IV ONCE ONE Stop: 11/22/21 13:45 Last Admin: 11/22/21 13:45 Dose: 117 ml Documented By: KEE Morphine Sulfate (Morphine Sulfate 4 Mg/Ml 1 Ml Carp\Vial) 4 mg IV NOW STA Stop: 11/22/21 10:50 Last Admin: 11/22/21 11:11 Dose: 4 mg Documented By: BERTO Morphine Sulfate (Morphine Sulfate 4 Mg/Ml 1 Ml CarpVial) 4 mg IV NOW STA Stop: 11/22/21 12:53 Last Admin: 11/22/21 12:56 Dose: 4 mg Documented By: LACIE Morphine Sulfate (Morphine Sulfate 4 Mg/Ml 1 Ml CarpVial) 4 mg IV NOW STA Stop: 11/22/21 16:56 Last Admin: 11/22/21 17:06 Dose: 4 mg Documented By: LACIE Ondansetron HCl (Ondansetron Inj 2 Mg/Ml 2 Ml Vial) 4 mg IV NOW STA Stop: 11/22/21 10:50 Last Admin: 11/22/21 11:11 Dose: 4 mg Documented By: BERTO ECG Additional Comments: Sinus bradycardia Left axis deviation Abnormal ECG When compared with ECG of 22-NOV-2021 11:08, No significant change was found Sinus bradycardia Left axis deviation Borderline ECG When compared with ECG of 01-JUL-2020 20:36, Sinus bradycardia has replaced Sinus rhythm T wave inversion now evident in Inferior leads T wave amplitude has decreased in Anterolateral leads Code Status & VTE Plan Code Status CODE: FULL VTE: SCDS, ELiquis VTE Prophylaxis Plan VTE Prophylaxis will be ordered: Yes Supervising Physician Co-Signing Physician Notes I supervised NATHALY Kunz on this admission. I interviewed and examined the patient independently of him. The plan is as written in his note except for any following changes/exceptions: None 66yo M w/ hx of afib, HTN, COPD who presents for chest pain. Pain is reproducible with ROM and palpation. Prior admission for non-cardiac chest pain. Trend troponin, but no further cardiac testing. Pain control. Lyme test for bradycardia, but also on beta-jun, so believe it to be unlikely. PG Care Time/CCT Total # of Minutes Spent Total Time Spent with Patient: Total time spent is greater than 50% in coordination of care (as documented) at patient's floor/unit and/or counseling patient: Coding Level of Care Code INT OBSERVATION CARE 70M LVL 3 Diagnoses Chest pain R07.9 Chest pain type: unspecified COPD (chronic obstructive pulmonary disease) J44.[address] scan R93.89 GERD (gastroesophageal reflux disease) K21.9 Hyperlipidemia E78.5 Hypertension I10 Afib I48.91 (1) Chest pain Chest pain type: unspecified Qualified Code(s): R07.9 - Chest pain, unspecified
[2021-11-22] MEDS ORDERED: ALBUTEROL 0.083% NEBU SOLN 3 ML VIAL NEB PRN (18:33)
[2021-11-22] MEDS ORDERED: ACETAMINOPHEN 325 MG TAB PO PRN (18:33)
[2021-11-22] MEDS ORDERED: ALBUTEROL HFA 8 GM INHALER INH PRN (18:33)
[2021-11-22] MEDS ORDERED: ONDANSETRON INJ 2 MG/ML 2 ML VIAL IV PRN (18:33)
[2021-11-22] MEDS ORDERED: cefTRIAXone SODIUM 2,000 MG/70 ML BAG IV STA (19:10)
[2021-11-22] MEDS: LIDOCAINE 5% 1 PATCH TD SCH (20:36)
[2021-11-22] MEDS: APIXABAN 5 MG TABLET PO SCH (20:36)
[2021-11-22 21:52] LABS: Procalcitonin < 0.05 ng/ml (0-0.5)
[2021-11-22 21:58] LABS: Lyme Ab IgG w/WB Rflx Negative (Negative); Lyme Ab IgM w/WB Rflx Negative (Negative)
[2021-11-23] MEDS: ASPIRIN 81 MG ECTAB PO SCH (08:04)
[2021-11-23] MEDS: APIXABAN 5 MG TABLET PO SCH ×2 (08:04→20:00)
[2021-11-23] MEDS: METOPROLOL SUCC 25MG EXT REL TAB PO SCH (08:04)
[2021-11-23] MEDS: PANTOprazole 40 MG TAB PO SCH (08:06)
[2021-11-23] MEDS: LIDOCAINE 5% 1 PATCH TD SCH (08:06)
[2021-11-23] MEDS: ATORVASTATIN 20 MG TAB PO SCH (08:59)
[2021-11-23 14:29] LABS: Hematocrit (blood only) 40.9 % (40.1-51.0); Hemoglobin 13.8 g/dl (14.0-18.0); Mean Corpuscular Hemoglobin 28.2 pg (25.0-34.0); Mean Corpuscular Hgb Conc 33.7 g/dL (32.0-36.0); Mean Corpuscular Volume 83.5 fL (80.0-100.0); Platelet Count 130 K/uL (130-400); RDW Coefficient of Variation 12.9 % (11.5-14.5); RDW Standard Deviation 38.8 fL (36.4-46.3); White Blood Count 7.42 K/ul (4.8-10.8)
[2021-11-23 14:46] LABS: BUN Creatinine Ratio 13.9 (10-20); Calcium 8.9 mg/dl (8.5-10.1); Creatinine Clr Calc Pharmacy 51.9 ml/min; Est GFR (African American) 51.3 ml/min; Est GFR (Non-African American) 44.3 ml/min; Magnesium 1.9 mg/dl (1.7-2.4)
[2021-11-23] MEDS ORDERED: ACETAMINOPHEN 325 MG TAB PO ONE (19:29)
[2021-11-23] MEDS ORDERED: SODIUM CHLORIDE 0.9% 1000ML 1,000 ML IV SCH (19:30)
--- NOTE | 2021-11-23 19:49 | Electrocardiogram Report ---
Test Reason : Blood Pressure : / mmHG Vent. Rate : 051 BPM Atrial Rate : 051 BPM P-R Int : 160 ms QRS Dur : 090 ms QT Int : 446 ms P-R-T Axes : 050 -34 -16 degrees QTc Int : 411 ms Sinus bradycardia Left axis deviation Abnormal ECG When compared with ECG of 22-NOV-2021 11:08, No significant change was found Confirmed by Antwan Farr ([id number]) on 11/23/2021 7:49:08 PM Referred By: REFERRED SELF Confirmed By:Antwan Farr
--- NOTE | 2021-11-23 20:44 | Electrocardiogram Report ---
Test Reason : Blood Pressure : / mmHG Vent. Rate : 050 BPM Atrial Rate : 050 BPM P-R Int : 164 ms QRS Dur : 090 ms QT Int : 438 ms P-R-T Axes : 055 -30 -13 degrees QTc Int : 399 ms Sinus bradycardia Left axis deviation Abnormal ECG When compared with ECG of 22-NOV-2021 17:21, (unconfirmed) No significant change was found Confirmed by Antwan Farr ([id number]) on 11/23/2021 8:44:23 PM Referred By: REFERRED SELF Confirmed By:Antwan Farr
--- NOTE | 2021-11-23 21:28 | Hospitalist Progress Note ---
Date of Service November 23, 2021 Assessment & Plan (1) Chest pain: Plan: Pain is likely non-cardiac chest pain at this time as it is reproducible with palpation and movement- favoring costrochondirits - Tylenol/Lidocaine patch - Will send Lyme with bradycardia although on BB as well - ECG with non specific T wave inversions- trend HScTNI and ECG in morning - CRP and PCT pending ECHO in 2020 for non cardiac chest pain admission EF 60-65% with borderline LVH with trace MR Appears musculoskeltal, due to 6 SECOND RUN OF ATRIAL TACHYCARDIA. WILL MONITOR OVERNIGHT, and discharge in AM. (2) COPD (chronic obstructive pulmonary disease): Plan: History of smoking, quit. No PFTs in our system - reports that he is just on albuterol inhaler and nebulizer at home - no other inhalers notable in medication review history - continue SAM (3) Abnormal CT scan: Plan: With pneumonitis/inflammation bilateral lungs right >LT - he is without fever or change in cough - CRP mildly elevated - PCT pending - Will give dose of Rocephin defer to [facility]ers tomorrow to continue - denies any recent viral symptoms - COVID negative (4) GERD (gastroesophageal reflux disease): Plan: COntinue PPI (5) Hyperlipidemia: Plan: Continue Statin (6) Hypertension: Plan: Continue BB- follow HR overnight hold for less than 60 HR (7) Afib: Plan: PAF 2019 continue Eliquis Asa Admission and Anticipated Discharge Date Admission Date: November 22, 2021 Subjective 66 yo male reports that he continues to have chest pain. This is worse with palpation. Patient though had a 6 beat run of APC. Review of Systems Review of Systems: All systems reviewed & are unremarkable except as noted in HPI & below Physical Exam Physical Exam: General: awake, alert, no apparent distress Head: Normocephalic, atraumatic ENT: PERRL, EOMI, no pharyngeal exudate, mucous membranes moist Neuro: AAO x 3, speech clear and appropriate, strength intact bilaterally 5/5, sensation intact and equal all extremities and dermatomes, no pronator drift Chest: equal rise and fall of the chest, no accessory muscle use, no heaves or thrills, Clear to auscultation, on room air, Cardiac: Regular rate and rhythm, telemetry reviewed- Sinus magnolia, skin warm dry, cap refill <3 seconds, peripheral pulses +2 no JVD, no murmur, no edema MSK: Left sided reproducible chest pain worse with inspiration, no change in pain with position, palpable around side to back along shoulder blade GI: NABS x 4 quadrants, soft, nontender to palpation, no rebound, guarding or tenderness : Spontaneously voiding, no pain, no CVA tenderness, Extremities: Normal inspection, no peripheral edema or erythema, calfs nontender to palpation Psych: Normal mood and affect Skin: no rash or erythema Results & Data Results & Data ([facility]) Vital Signs (Past 12 Hours) Vital Signs Temp Pulse Pulse Resp BP Pulse Ox O2 Del Method 11/23/21 18:39 36.9 C 53 L 18 94/55 L 91 Room Air 11/23/21 15:01 60 11/23/21 14:54 36.6 C 50 L 18 106/65 94 Room Air 11/23/21 11:12 36.9 C 53 L 18 136/83 93 Room Air PG Care Time/CCT Total # of Minutes Spent Total Time Spent with Patient: Total time spent is greater than 50% in coordination of care (as documented) at patient's floor/unit and/or counseling patient: Coding Level of Care Code 16492 Subseq Obs Care Lvl 2 Diagnoses Chest pain R07.9 Chest pain type: unspecified COPD (chronic obstructive pulmonary disease) J44.[address] scan R93.89 GERD (gastroesophageal reflux disease) K21.9 Hyperlipidemia E78.5 Hypertension I10 Afib I48.91 (1) Chest pain Chest pain type: unspecified Qualified Code(s): R07.9 - Chest pain, unspecified
[2021-11-24] MEDS: ATORVASTATIN 20 MG TAB PO SCH (08:00)
[2021-11-24] MEDS: APIXABAN 5 MG TABLET PO SCH (08:00)
[2021-11-24] MEDS: ASPIRIN 81 MG ECTAB PO SCH (08:00)
[2021-11-24] MEDS: PANTOprazole 40 MG TAB PO SCH (08:01)
[2021-11-24] MEDS: LIDOCAINE 5% 1 PATCH TD SCH (08:01)
[2021-11-24] MEDS: METOPROLOL SUCC 25MG EXT REL TAB PO SCH (08:01)
[2021-11-24 13:46] LABS: BUN Creatinine Ratio 14.6 (10-20); Calcium 9.3 mg/dl (8.5-10.1); Creatinine Clr Calc Pharmacy 54.3 ml/min; Est GFR (African American) 54.2 ml/min; Est GFR (Non-African American) 46.8 ml/min; Potassium 3.9 mmol/L (3.5-5.1)
--- NOTE | 2021-11-26 09:17 | Discharge Summary ---
Date of Service November 24, 2021 Admission HPI Per Admitting Provider 66 YOM with medical history of: non cardiac chest pain, afib(on Eliquis), COPD, HTN, HLD, GERD, Shingles. Patient comes to the EMD today for complaints of left sided chest wall pain. The onset of this occurred this morning at 0800. Patient states that he was not doing anything when it occurred. It is sharp and stabbing in nature. It radiates around his side into his back. It gets worse with inspiration and coughing or turning and reaching across his chest. In the EMD the patient had routine blood work to include 2 negative HScTNI, CXR, CTA of the chest completed. He was given morphine for his pain, which relieved it but comes back. Hospitalist was consulted for admission. The pain is reproducible at the left 4th intercostal around his side and terminates on the back beside his scapula, this pain is also notable with raising arm up and bringing shoulder blades together. This is the same pain that brought him to the EMD. He states that he did have shingles earlier this year sometime. He normally gets majority of his care at the [facility]. ECG is without any STEMI. He will be admitted to medical telemetry to follow rhythm overnight. Will obtain HScTNI this evening and in AM. Will start on Lidocaine patch, provide tylenol. His CT scan was notable for right lower lobe pneumonitis/inflammation. He is without WBC count or fevers, CRP and PCT pending. Lyme sent. He has had negative stress test in 2019 and never had cath done that he knows of. COVID test on admission is: PENDING Principal Diagnosis chest pain Discharge Exam General: awake, alert, no apparent distress Head: Normocephalic, atraumatic ENT: PERRL, EOMI, no pharyngeal exudate, mucous membranes moist Neuro: AAO x 3, speech clear and appropriate, strength intact bilaterally 5/5, sensation intact and equal all extremities and dermatomes, no pronator drift Chest: equal rise and fall of the chest, no accessory muscle use, no heaves or thrills, Clear to auscultation, on room air, Cardiac: Regular rate and rhythm, telemetry reviewed- Sinus magnolia, skin warm dry, cap refill <3 seconds, peripheral pulses +2 no JVD, no murmur, no edema MSK: Left sided reproducible chest pain, no change in pain with position, palpable around side to back along shoulder blade GI: NABS x 4 quadrants, soft, nontender to palpation, no rebound, guarding or tenderness : Spontaneously voiding, no pain, no CVA tenderness, Extremities: Normal inspection, no peripheral edema or erythema, calfs nontender to palpation Psych: Normal mood and affect Skin: no rash or erythema Discharge Data Allergies Allergy/AdvReac Type Severity Reaction Status Date / Time tetanus toxoid, adsorbed Allergy Severe ANAPHYLAXIS Verified 11/22/21 18:18 Consultations 11/22/21 17:01 ED Decision to Admit Stat Ordered Studies 11/22/21 10:49 CT angio chest PE protocol Stat Hospital Course (1) Chest pain: Pain is likely non-cardiac chest pain at this time as it is reproducible with palpation and movement- favoring costrochondirits - Tylenol/Lidocaine patch - Will send Lyme with bradycardia although on BB as well - ECG with non specific T wave inversions- trend HScTNI and ECG in morning - CRP and PCT pending ECHO in 2020 for non cardiac chest pain admission EF 60-65% with borderline LVH with trace MR Pain is musculoskeletal in nature. Due to atrial tachycardia, 6 seconds, recommend followup with cardiology. (2) COPD (chronic obstructive pulmonary disease): History of smoking, quit. No PFTs in our system - reports that he is just on albuterol inhaler and nebulizer at home - no other inhalers notable in medication review history - continue SAM (3) Abnormal CT scan: With pneumonitis/inflammation bilateral lungs right >LT - he is without fever or change in cough - CRP mildly elevated - PCT pending - Will give dose of Rocephin defer to rounders tomorrow to continue - denies any recent viral symptoms - COVID negative (4) GERD (gastroesophageal reflux disease): COntinue PPI (5) Hyperlipidemia: Continue Statin (6) Hypertension: Continue BB- follow HR overnight hold for less than 60 HR (7) Afib: PAF 2019 continue Eliquis Asa Total Time Total Time Spent Total Time Spent (In Minutes): 35 Discharge Plan Discharge Items Patient Disposition: Home - Self-Care Reason For Visit: CHEST PAIN Discharge Diagnosis: chest pain Activity: Resume your previous activity Non-emergency contact: Primary Care Provider Call non-emergency contact if: you have any medication questions Follow-up/Referrals: Mari Quick CRNP [Primary Care Provider] - 12/03/21 2:50 pm Diet: Regular Addtl Attending Provider Instructions: will recommend followup with PCP in 1-2 weeks. Will recommend followup with Cardiology within this month to assess for any rhythm changes. I prescribe lidocaine patches 5% to help with your pain. If this is too expensive, you could purchase over the counter version which 4% lidocaine patches. You could continue tylenol q8h to help with the pain as well. Your chest pain is due to a musculoskeletal strain and should improve over the course of the next week or 2. Recommend repeating chest x ray in 3-4 weeks to reassess consolidation. Pending Studies at Discharge: No Stand-Alone Forms: My [facility], Smoking Cessation Medications and DC Order Prescriptions: New aspirin 81 mg capsule 81 mg PO DAILY Qty: 30 0RF lidocaine 5 % adhesive patch,medicated See Rx Instructions .ROUTE .COMPLEX Qty: 15 0RF Rx Instructions: leave on most painful area for up to 12 hrs, then take off for 12 hours Debrox 6.5 % drops 10 drp otic (ear) BID 4 Days Qty: 15 0RF Continued multivitamin Tablet 1 tab PO QAM atorvastatin 20 mg tablet 20 mg PO QAM omeprazole 20 mg capsule,delayed release(DR/EC) 20 mg PO QAM Eliquis 5 mg tablet 5 mg PO BID Qty: 60 3RF metoprolol succinate [Toprol XL] 25 mg tablet extended release 24 hr 25 mg PO QAM albuterol sulfate 90 mcg/actuation Hfa Aerosol Inhaler 1 inh INHALATION HS olodaterol 2.5 mcg/actuation Mist 2 inh INHALATION BID Discharge Orders: Discharge Order (Routine); Ordered 11/24/21 Ordered By: Chadwick Bob Admission Data Admit Date/Time: 11/22/21 17:34 Attending Provider: Chadwick Bob Admit Provider: Jeronimo Shannon Primary Care Provider: Mari Quick Other Providers: Jeronimo Shannon Other Interventions: Discharge Summary Assessment (RN) Last Done: 11/24/21 13:21 Coding Level of Care Code 86321 OBS Care - Discharge Diagnoses Chest pain R07.9 Chest pain type: unspecified COPD (chronic obstructive pulmonary disease) J44.[address] scan R93.89 GERD (gastroesophageal reflux disease) K21.9 Hyperlipidemia E78.5 Hypertension I10 Afib I48.91
== END 2021-11-24 14:48 | disposition home or self-care (01) ==
LOC: ED 10:29 → SUATTDRO 17:34 → 2N 17:34 → INTOOBSV 17:34 → 2N 18:12

== ENCOUNTER 2022-07-22 21:30 | Inpatient (IN) ==
[2022-07-22 23:09] LABS: Basophils # (auto) 0.03 K/uL (0-0.2); Basophils % (auto) 0.3 %; Eosinophils # (auto) 0.02 K/uL (0-0.50); Eosinophils % (auto) 0.2 %; Hematocrit (blood only) 41.9 % (42.0-52.0); Hemoglobin 14.4 g/dl (14.0-18.0); Immature Granulocytes # (auto) 0.03 K/uL (0.01-0.20); Immature Granulocytes % (auto) 0.3 %; Lymphocytes # (auto) 0.63 K/uL (1.2-3.4); Lymphocytes % (auto) 6.5 %; Mean Corpuscular Hemoglobin 29.1 pg (25.0-34.0); Mean Corpuscular Hgb Conc 34.4 g/dL (32.0-36.0); Mean Corpuscular Volume 84.6 fL (80.0-100.0); Mean Platelet Volume 10.5 fL (9.4-12.4); Monocytes # (auto) 0.64 K/uL (0.11-0.59); Monocytes % (auto) 6.6 %; Neutrophils % (auto) 86.1 %; Platelet Count 129 K/uL (130-400); RDW Coefficient of Variation 13.5 % (11.5-14.5); Red Blood Count 4.95 M/uL (4.70-6.10); White Blood Count 9.65 K/ul (4.8-10.8)
[2022-07-22 23:17] LABS: Albumin Globulin Ratio 1.8 (0.9-2); BUN Creatinine Ratio 15.2 (10-20); Bilirubin,Total 1.1 mg/dl (0.2-1.0); Calcium 8.8 mg/dl (8.6-10.3); Creatinine Clr Calc Pharmacy 63.1 ml/min; Est GFR (African American) 63.3 ml/min; Est GFR (Non-African American) 54.7 ml/min; Globulin 2.2 gm/dl (2.5-4.0); Potassium 4.3 mmol/L (3.5-5.1); Total Protein 6.2 gm/dl (6.0-8.3)
[2022-07-22 23:32] LABS: Troponin I High Sensitivity 1235.2 pg/ml (0-20)
[2022-07-22 23:35] LABS: Partial Thromboplastin Time 26.8 Seconds (21.0-31.0)
[2022-07-23 00:26] LABS: Appearance Urine Clear (Clear); Bilirubin Urine Negative (Negative); Blood Urine Negative (Negative); Color Urine Yellow; Glucose Urine UA Negative (Negative); Ketones Urine Negative (Negative); Leukocyte Esterase Urine Negative (Negative); Nitrite Urine Negative (Negative); Protein Urine Negative (Negative); Specific Gravity Urine 1.018 (1.000-1.030); Urobilinogen Urine Negative (Negative)
--- NOTE | 2022-07-23 01:01 | Emergency Department Note ---
Impression & Plan Substernal chest pain, Acute urinary retention Admit to the [facility] ED Provider Note NAME: ARELI LEBRON AGE: 67 SEX: M ARRIVES VIA: Walk-In INFORMANT: Patient and his ED PROVIDER(S): Virginia Marcial DO CHIEF COMPLAINT: Unable to void PLAN: Disposition: Admit to the [facility] Condition: Fair MEDICAL DECISION MAKING: This is a 67 old male patient who underwent cardiac ablation earlier today at [facility] for A-fib. Since that time, he has only been able to urinate a minimal amount and is now dribbling. Upon arrival here in the emergency department, he also describes some chest pressure which he thought was from lying on his back throughout most of the procedure today. He told his that it felt like an elephant sitting on his chest. Laboratory results revealed an elevated troponin. This was repeated 90 minutes later and had gone up by approximately 100 points. Mcnair catheter was placed to drain the patient's bladder. [facility]. Triage Nursing notes reviewed and agree with them. Additional history obtained from is at the bedside Vital Signs: reviewed and remarkable for bradycardia Differential diagnosis: Urinary outlet obstruction, cardiac ischemia, prostatitis, UTI ER treatment provided: Cardiac monitoring, twelve-lead EKG, bladder scan, Mcnair catheter placement Diagnostics interpreted by me: ECG: Normal sinus rhythm at a rate of 76 with a first-degree AV block. There is no ST segment elevation or signs of ischemia. There is no ectopy. Cardiac Monitoring: Sinus bradycardia at 59 Laboratory studies: See below Imaging studies: As per my independent interpretation Portable chest x-ray: No pulmonary infiltrates or significant cardiomegaly HPI: 67/M arrives for evaluation of urinary retention. Patient underwent ablation earlier today at [facility]. Since that time, has had difficulty urinating. He is now only able to dribble. PAST MEDICAL HISTORY:See Below PAST SURGICAL HISTORY:See Below FAMILY HISTORY:See Below SOCIAL HISTORY:Patient lives with his and uses chewing tobacco HOME MEDICATIONS:See list ALLERGIES:See list VITALS:See Below PHYSICAL EXAMINATION: HEENT: Head - normocephalic and atraumatic. Pupils are equal, round, and reactive to light. Extraocular eye muscles are intact, and sclera are anicteric. Nose - moist nasal mucosa without discharge. Mouth - moist buccal mucosa. Oropharynx is nonerythematous and there is no tonsillar exudate or edema noted. Neck: Supple; no JVD, nuchal rigidity, cervical lymphadenopathy, or auscultated bruits. Heart: Bradycardic rate and regular rhythm there is a normal S1 and S2 with no murmurs, clicks, or gallops appreciated. Lungs: Clear to auscultation bilaterally with no wheezes, rales, or rhonchi. Abdomen: Soft, mild suprapubic tenderness, nondistended, with good bowel sounds. There are no palpable pulsatile masses or hepatosplenomegaly. There is no guarding, rigidity, or rebound noted. Extremities: No evidence of cyanosis, clubbing, or edema. There are easily palpable peripheral pulses. Groin: Bilateral ecchymosis Skin: Pale, warm and dry with good turgor and no rashes. ED COURSE: Times/Reassessments: 2350: Patient was evaluated in room A-3. Nursing staff p erformed a bladder scan which revealed 570 mL of urine within the bladder. Did complain of some chest pressure and nursing staff performed a twelve-lead EKG and placed him on the property assessment monitor. An order was placed for continuous cardiac monitoring. The patient was in a sinus bradycardia at 59. Orders were placed for Mcnair catheter. This drained his bladder and he felt much more comfortable. We repeated the troponin and it went up. I discussed the case with the [facility] Hospitalist and they will evaluate for further management. Virginia Marcial DO Past Med/Surg History Medical History (Updated 07/24/22 @ 18:50 by Virginia Marcial DO) Acute kidney injury Afib Asthma NO INHALERS, REPORTS D.O.E Atrial fibrillation DX APR 2020> ELIQUIS/TOPROL > FOLLOWS [facility] Bradycardia Chest pain (06/19/13) Difficulty swallowing REASON FOR PROCEDURE GERD (gastroesophageal reflux disease) Hyperlipidemia Hypertension Osteoarthritis Pulmonary nodule Surgical History (Updated 07/23/22 @ 14:16 by Stephen Richardson MD) History of arthroscopy RIGHT WRIST> DUE TO INJURY / LEFT KNEE History of colonoscopy History of esophagogastroduodenoscopy (EGD) History of tonsillectomy S/P ablation of atrial fibrillation Social History Smoking Status: Former smoker Tobacco Type: Cigarettes Cigarettes Per Day: 20; Second Hand Exposure: No; Do You Dip or Chew Tobacco: Yes; Hx Alcohol Use: No Hx Substance Use: No Preferred Language: Bahraini Communication Ability: Effective Measurement Coordinator Required: No Beliefs That Will Affect Care: None Current Living Situation: Family Feels Safe at Home: Yes Assistive Devices: Hearing Aid - Left Allergies Allergies Allergy/AdvReac Type Severity Reaction Status Date / Time tetanus toxoid, adsorbed Allergy Severe ANAPHYLAXIS Verified 11/22/21 18:18 Home Meds Home Medications Medication Instructions Recorded Confirmed atorvastatin 20 mg tablet 20 mg PO QAM 04/30/20 07/23/22 multivitamin 1 tab PO QAM 04/30/20 07/23/22 omeprazole 20 mg capsule,delayed 20 mg PO QAM 04/30/20 07/23/22 release metoprolol succinate 25 mg 12.5 mg PO QAM 08/29/20 07/23/22 tablet,extended release 24 hr (Toprol XL) albuterol sulfate 90 mcg/actuation 1 inh inhalation HS 11/22/21 07/23/22 aerosol inhaler olodaterol 2.5 mcg/actuation mist 2 inh inhalation BID 11/22/21 07/23/22 for inhalation flecainide 100 mg tablet 100 mg PO Q12H 07/23/22 07/23/22 Previous Rx's Medication Instructions Recorded apixaban 5 mg tablet (Eliquis) 5 mg PO BID #60 tabs 05/01/20 tamsulosin 0.4 mg capsule 0.4 mg PO QAM #14 caps 07/23/22 Results & Data (ED) Vital Signs Vital Signs - 24 hr 07/22/22 21:48 07/22/22 22:59 07/22/22 23:00 Temperature 36.5 C Temperature Source Temporal Artery Scan Pulse Rate 84 68 68 Pulse Rate from SpO2 Sensor 68 Respiratory Rate 18 16 Respiratory Depth Normal Blood Pressure 101/67 127/65 Blood Pressure Mean 78 85 Pulse Oximetry 95 92 Oxygen Delivery Method Room Air Sepsis Recent Fever Within 48 Hours No Sepsis New/Unexplained Change in Mental Status No Sepsis Action Taken by Nursing No Action Required 07/22/22 23:30 07/23/22 00:00 Temperature Temperature Source Pulse Rate 66 59 L Pulse Rate from SpO2 Sensor 66 59 L Respiratory Rate 17 22 Respiratory Depth Blood Pressure 117/69 127/76 Blood Pressure Mean 85 93 Pulse Oximetry 91 94 Oxygen Delivery Method Sepsis Recent Fever Within 48 Hours Sepsis New/Unexplained Change in Mental Status Sepsis Action Taken by Nursing Laboratory Data 07/22/22 22:47 07/22/22 22:47 Lab Results 07/22/22 07/22/22 07/22/22 Range/Units 22:47 22:47 22:47 WBC 9.65 (4.8-10.8) K/ul RBC 4.95 (4.70-6.10) M/uL Hgb 14.4 (14.0-18.0) g/dl Hct 41.9 L (42.0-52.0) % MCV 84.6 (80.0-100.0) fL MCH 29.1 (25.0-34.0) pg MCHC 34.4 (32.0-36.0) g/dL RDW Std Deviation 42.0 (36.4-46.3) fL RDW Coeff of Zay 13.5 (11.5-14.5) % Plt Count 129 L (130-400) K/uL MPV 10.5 (9.4-12.4) fL Immature Gran % (Auto) 0.3 % Neut % (Auto) 86.1 % Lymph % (Auto) 6.5 % Millard % (Auto) 6.6 % Eos % (Auto) 0.2 % Baso % (Auto) 0.3 % Neut # (Auto) 8.30 H (1.40-6.50) K/uL Lymph # (Auto) 0.63 L (1.2-3.4) K/uL Millard # (Auto) 0.64 H (0.11-0.59) K/uL Eos # (Auto) 0.02 (0-0.50) K/uL Baso # (Auto) 0.03 (0-0.2) K/uL Immature Gran # (Auto) 0.03 (0.01-0.20) K/uL PT 11.0 (9.0-12.0) Seconds INR 1.0 (0.9-1.1) APTT 26.8 (21.0-31.0) Seconds PTT Ratio 1.0 Sodium 140 (136-145) mmol/L Potassium 4.3 (3.5-5.1) mmol/L Chloride 109 H (98-107) mmol/L Carbon Dioxide 24 (21-32) mmol/L Anion Gap 7 (3-11) BUN 20 (6-23) mg/dl Creatinine 1.32 (0.6-1.4) mg/dl Est Cr Clr Drug Dosing 63.1 ml/min Est GFR ( Amer) 63.3 ml/min Est GFR (Non-Af Amer) 54.7 ml/min BUN/Creatinine Ratio 15.2 (10-20) Glucose 109 H (70-99(Fasting)) mg/dl Calcium 8.8 (8.6-10.3) mg/dl Total Bilirubin 1.1 H (0.2-1.0) mg/dl AST 30 (13-39) U/L ALT 14 (7-52) U/L Alkaline Phosphatase 95 (34-104) U/L Troponin I High Sens 1235.2 H* (0-20) pg/ml Total Protein 6.2 (6.0-8.3) gm/dl Albumin 4.0 (3.4-5.0) gm/dl Globulin 2.2 L (2.5-4.0) gm/dl Albumin/Globulin Ratio 1.8 (0.9-2) Urine Color Urine Appearance (Clear) Urine pH (4.5-7.5) Ur Specific [place] (1.000-1.030) Urine Protein (Negative) Urine Glucose (UA) (Negative) Urine Ketones (Negative) Urine Blood (Negative) Urine Nitrite (Negative) Urine Bilirubin (Negative) Urine Urobilinogen (Negative) Ur Leukocyte Esterase (Negative) SARS-CoV-2, RNA, NAAT (NEGATIVE) 07/23/22 07/23/22 07/23/22 Range/Units 00:13 00:20 01:20 WBC (4.8-10.8) K/ul RBC (4.70-6.10) M/uL Hgb (14.0-18.0) g/dl Hct (42.0-52.0) % MCV (80.0-100.0) fL MCH (25.0-34.0) pg MCHC (32.0-36.0) g/dL RDW Std Deviation (36.4-46.3) fL RDW Coeff of Zay (11.5-14.5) % Plt Count (130-400) K/uL MPV (9.4-12.4) fL Immature Gran % (Auto) % Neut % (Auto) % Lymph % (Auto) % Millard % (Auto) % Eos % (Auto) % Baso % (Auto) % Neut # (Auto) (1.40-6.50) K/uL Lymph # (Auto) (1.2-3.4) K/uL Millard # (Auto) (0.11-0.59) K/uL Eos # (Auto) (0-0.50) K/uL Baso # (Auto) (0-0.2) K/uL Immature Gran # (Auto) (0.01-0.20) K/uL PT (9.0-12.0) Seconds INR (0.9-1.1) APTT (21.0-31.0) Seconds PTT Ratio Sodium (136-145) mmol/L Potassium (3.5-5.1) mmol/L Chloride (98-107) mmol/L Carbon Dioxide (21-32) mmol/L Anion Gap (3-11) BUN (6-23) mg/dl Creatinine (0.6-1.4) mg/dl Est Cr Clr Drug Dosing ml/min Est GFR ( Amer) ml/min Est GFR (Non-Af Amer) ml/min BUN/Creatinine Ratio (10-20) Glucose (70-99(Fasting)) mg/dl Calcium (8.6-10.3) mg/dl Total Bilirubin (0.2-1.0) mg/dl AST (13-39) U/L ALT (7-52) U/L Alkaline Phosphatase (34-104) U/L Troponin I High Sens 1319.1 H* (0-20) pg/ml Total Protein (6.0-8.3) gm/dl Albumin (3.4-5.0) gm/dl Globulin (2.5-4.0) gm/dl Albumin/Globulin Ratio (0.9-2) Urine Color Yellow Urine Appearance Clear (Clear) Urine pH 7.0 (4.5-7.5) Ur Specific [place] 1.018 (1.000-1.030) Urine Protein Negative (Negative) Urine Glucose (UA) Negative (Negative) Urine Ketones Negative (Negative) Urine Blood Negative (Negative) Urine Nitrite Negative (Negative) Urine Bilirubin Negative (Negative) Urine Urobilinogen Negative (Negative) Ur Leukocyte Esterase Negative (Negative) SARS-CoV-2, RNA, NAAT NEGATIVE (NEGATIVE) Administered Medications Discontinued Medications Acetaminophen (Acetaminophen 500 Mg Tab) 1,000 mg PO NOW [facility] Stop: 07/23/22 02:00 Last Admin: 07/23/22 04:53 Dose: Not Given Documented By: BRIAN Acetaminophen (Acetaminophen 500 Mg Tab) Confirm Administered Dose 1,000 mg .ROUTE .STK-MED ONE Stop: 07/23/22 04:51 Last Admin: 07/23/22 04:52 Dose: 1,000 mg Documented By: BRIAN Apixaban (Apixaban 5 Mg Tablet) 5 mg PO BID [facility] Stop: 08/22/22 08:59 Last Admin: 07/23/22 10:12 Dose: 5 mg Documented By: SOMMER Co-signed By: ALFREDITO Aspirin (Aspirin 81 Mg Ectab) 81 mg PO DAILY [facility] Stop: 08/22/22 08:59 Last Admin: 07/23/22 10:12 Dose: 81 mg Documented By: SOMMER Co-signed By: ALFREDITO Atorvastatin Calcium (Atorvastatin 20 Mg Tab) [address] [facility] Stop: 08/22/22 08:59 Last Admin: 07/23/22 10:11 Dose: 20 mg Documented By: OSMMER Co-signed By: ALFREDITO Dextrose/Sodium Chloride (D5w And Nss) 1,000 mls @ 80 mls/hr IV .[id number] [facility] Stop: 07/24/22 05:31 Last Admin: 07/23/22 05:02 Dose: 80 mls/hr Documented By: BRIAN Metoprolol Succinate (Metoprolol Succ 25mg Ext Rel Tab) [facility] Stop: 08/22/22 08:59 Last Admin: 07/23/22 10:15 Dose: Not Given Documented By: SOMMER Olodaterol (Olodaterol Hcl 2.5mcg/Actuation 60 Puffs/Inhaler) 2 puffs INH BID [facility] Stop: 08/22/22 08:59 Last Admin: 07/23/22 10:14 Dose: Not Given Documented By: SOMMER Pantoprazole Sodium (Pantoprazole 40 Mg Tab) [address] [facility] Stop: 08/22/22 08:59 Last Admin: 07/23/22 10:10 Dose: 40 mg Documented By: SOMMER Co-signed By: ALFREDITO Tamsulosin HCl (Tamsulosin Hcl 0.4 Mg Cap) 0.[address] [facility] Stop: 08/22/22 08:59 Last Admin: 07/23/22 10:13 Dose: 0.4 mg Documented By: SOMMER Co-signed By: ALFREDITO Discharge Plan Visit Data Chief Complaint: Unable to Void Stated Complaint: UNABLE TO URINATE,CHEST PRESSURE ED Provider: Virginia Marcial Discharge Problem: Substernal chest pain, Acute urinary retention Patient Disposition: Admitted As Inpatient Discharge Instructions Interventions: ED Discharge Assessment Last Done: 07/23/22 04:11
[2022-07-23] MEDS ORDERED: ACETAMINOPHEN 500 MG TAB PO STA (01:59)
--- NOTE | 2022-07-23 02:00 | History & Physical Report ---
Date of Service July 23, 2022 Assessment & Plan (1) Chest pain: Plan: 67 year old male w/ PmHx A fib s/p ablation 07/22/2022 at [place], on Eliquis for A fib, COPD, HLD, HTN, GERD admitted for chest pressure rule out and urinary retention. Chest pressure/Elevated troponin: -New onset chest pressure post ablation. -Troponin 1235 initially followed by 1319. Will trend serial trops. -EKG sinus rhythm 76 with 1st degree AV block, no acute ST elevation/depressions. -With elevated troponin possible NSTEMI vs transient ischemia from ablation. -Ordered TTE. -Consulted cardiology, appreciate recs. -Continue home metoprolol, Eliquis - will need medicine reconciliation to verify. -Admit to tele for cardiac monitoring. A fib: -Now in sinus rhythm post ablation. -As above, continue metoprolol and Eliquis. Postoperative Urinary Retention: -Patient with past urinary hesitancy/incomplete void issues under control on unknown medication. -Jensen catheter in, draining. -Can do voiding trial tomorrow, if persistent can trial Flomax, Myrbetriq. COPD: -Continue home daily inhalers. GERD: -Continue home omeprazole. HTN: -Continue metoprolol as above. HLD: -Continue home statin. F/E/N/GI: NPO if cath recommended. DVT Prophylaxis: Eliquis 5mg BID. Code status: Full code. Dispo: Med/tele (2) Afib: (3) Postoperative urinary retention: (4) COPD (chronic obstructive pulmonary disease): (5) GERD (gastroesophageal reflux disease): (6) Hyperlipidemia: (7) Hypertension: History of Present Illness Chief Complaint: Chest pressure urinary retention. Primary Care Provider: ASHLEIGH Ramirez Rolando is a 67 year old male with PmHx A fib s/p ablation 07/22/2022 at [place], on Eliquis for A fib, COPD, HLD, HTN, GERD coming into the emergency department for urinary retention and chest pressure. Patient states that earlier on the he went to [facility] for an ablation procedure. The procedure went well and he underwent general anesthesia for it. He states that he had a urinary catheter in during the procedure. After getting it taken out he failed a void trial without any urine able to get out. He was told it should get better and he should be able to void later on in the day and was subsequently discharged. He got home around 4 oclock and no matter what he did he was unable to void. He says he takes a medication to help with voiding issues/hesitency/incomplete void however medication reconciliation is not done at the time of this note and no medication is found in existing list. He states with the medication his voiding is controlled. He also complains of some chest pressure and burning at the epigastric area of his chest that has been going on since the procedure. The pain does not radiate and he does not have any nausea, vomiting, palpitations, or diaphoresis. In the ED a jensen catheter was placed and drained 570ml urine. CBC and CMP unremarkable, troponin 1235 initially followed by 1319. Allergies Allergy/AdvReac Type Severity Reaction Status Date / Time tetanus toxoid, adsorbed Allergy Severe ANAPHYLAXIS Verified 11/22/21 18:18 Home Medications Medication Instructions Recorded Confirmed Type atorvastatin 20 mg tablet 20 mg PO QAM 04/30/20 07/23/22 History multivitamin 1 tab PO QAM 04/30/20 07/23/22 History omeprazole 20 mg capsule,delayed 20 mg PO QAM 04/30/20 07/23/22 History release apixaban 5 mg tablet (Eliquis) 5 mg PO BID #60 tabs 05/01/20 07/23/22 Rx metoprolol succinate 25 mg 12.5 mg PO QAM 08/29/20 07/23/22 History tablet,extended release 24 hr (Toprol XL) albuterol sulfate 90 mcg/actuation 1 inh inhalation HS 11/22/21 07/23/22 History aerosol inhaler olodaterol 2.5 mcg/actuation mist 2 inh inhalation BID 11/22/21 07/23/22 History for inhalation flecainide 100 mg tablet 100 mg PO Q12H 07/23/22 07/23/22 History tamsulosin 0.4 mg capsule 0.4 mg PO QAM #14 caps 07/23/22 07/23/22 Rx Past Med/Surg History Medical History (Updated 07/23/22 @ 14:16 by Stephen Richardson MD) Acute kidney injury Afib Asthma NO INHALERS, REPORTS D.O.E Atrial fibrillation DX APR 2020> ELIQUIS/TOPROL > FOLLOWS [facility] Bradycardia Chest pain (06/19/13) Difficulty swallowing REASON FOR PROCEDURE GERD (gastroesophageal reflux disease) Hyperlipidemia Hypertension Osteoarthritis Pulmonary nodule Surgical History (Updated 07/23/22 @ 14:16 by Stephen Richardson MD) History of arthroscopy RIGHT WRIST> DUE TO INJURY / LEFT KNEE History of colonoscopy History of esophagogastroduodenoscopy (EGD) History of tonsillectomy S/P ablation of atrial fibrillation Social History Smoking Status: Former smoker Tobacco Type: Cigarettes Cigarettes Per Day: 20; Second Hand Exposure: No; Do You Dip or Chew Tobacco: Yes; Hx Alcohol Use: No Hx Substance Use: No Preferred Language: Urdu Communication Ability: Effective End Frazer Required: No Beliefs That Will Affect Care: None Current Living Situation: Family Feels Safe at Home: Yes Assistive Devices: Hearing Aid - Left Review of Systems Review of Systems: As per HPI. Physical Exam Constitutional: WD/WN, vitals as above Eyes: PERRL, conjunctivae normal, anicteric sclerae Respiratory: normal respiratory effort, lungs clear to auscultation Cardiovascular: RRR, no murmur, no edema Gastrointestinal (Abdomen): normal bowel sounds, soft, nontender, no hepatosplenomegaly Skin: Area of insertion for ablation at L forearm clean and without erythema, mild swelling. Psychiatric: A+Ox3, euthymic affect Genitourinary: Jensen in place draining yellow urine. Results & Data Results & Data Vital Signs (Past 12 Hours) Vital Signs Temp Pulse Resp BP Pulse Ox O2 Del Method 07/23/22 00:00 59 L 22 127/76 94 07/22/22 23:30 66 17 117/69 91 07/22/22 23:00 68 16 127/65 92 07/22/22 22:59 68 07/22/22 21:48 36.5 C 84 18 101/67 95 Room Air Supervising Physician Co-Signing Physician Notes Attending addendum: I have physically seen this patient, have supervised the medical residents activities, and agree with the H&P unless as otherwise noted. Assessment and Plan: NSTEMI/A-fib/hypertension- Patient is status post ablation at [place] earlier in the day Symptoms may to be secondary to procedure Admitted overnight, and then consult with [place] cardiology in the a.m. The patient will be admitted to telemetry for serial cardiac enzymes, serial EKG's, cardiac rhythm monitoring and a 2-D echocardiogram with Dopplers. Continue metoprolol, Eliquis COPD- Continue usual inhalers Urinary retention- Continue Jensen catheter Considering trial of Flomax/Myrbetriq persistent Remaining orders and notations as noted Resident Activity Tracking Resident Involvement: Resident Care Provided Care Provided: Adult Hospital Medicine (1) Chest pain Chest pain type: unspecified Qualified Code(s): R07.9 - Chest pain, unspecified
[2022-07-23] MEDS ORDERED: NITROGLYCERIN SL 0.4 MG/TAB TAB SL PRN (04:32)
[2022-07-23] MEDS ORDERED: POLYETHYLENE (MIRALAX) 17 GM PACK PO PRN (04:32)
[2022-07-23] MEDS ORDERED: D5W AND NSS 1,000 ML IV SCH (04:32)
[2022-07-23] MEDS ORDERED: ACETAMINOPHEN 500 MG TAB ONE (04:50)
[2022-07-23] MEDS ORDERED: APIXABAN 5 MG TABLET PO SCH (09:00)
[2022-07-23] MEDS ORDERED: ASPIRIN 81 MG ECTAB PO SCH (09:00)
[2022-07-23] MEDS ORDERED: METOPROLOL SUCC 25MG EXT REL TAB PO SCH (09:00)
[2022-07-23] MEDS ORDERED: PANTOprazole 40 MG TAB PO SCH (09:00)
[2022-07-23] MEDS ORDERED: TAMSULOSIN HCL 0.4 MG CAP PO SCH (09:00)
[2022-07-23] MEDS ORDERED: ATORVASTATIN 20 MG TAB PO SCH (09:00)
[2022-07-23] MEDS ORDERED: OLODATEROL HCL 2.5MCG/ACTUATION 60 PUFFS/INHALER INH SCH (09:00)
--- NOTE | 2022-07-23 12:17 | XRay Report ---
XR chest 1V portable HISTORY: Atypical chest pain COMPARISON: Chest 02/22/2022. FINDINGS: No pneumothorax. No pleural effusions. The cardiac silhouette remains mildly enlarged. Left basilar densities favor subsegmental atelectasis are scarring. Otherwise, no new focal lung consolid ations to suggest a pneumonia. No evidence for pulmonary edema. No acute fractures. IMPRESSION: Mild cardiomegaly. Otherwise, no acute process within the chest. ACT 112: Negative or not required by law. Electronically signed by: Sudarshan Kearns M.D. 07/23/2022 12:16 PM
--- NOTE | 2022-07-23 12:38 | XCELERA ---
[id number]
--- NOTE | 2022-07-23 13:18 | Discharge Summary ---
Date of Service July 23, 2022 Admission HPI Per Admitting Provider Rolando is a 67 year old male with PmHx A fib s/p ablation 07/22/2022 at [place], on Eliquis for A fib, COPD, HLD, HTN, GERD coming into the emergency department for urinary retention and chest pressure. Patient states that earlier on the he went to [facility] for an ablation procedure. The procedure went well and he underwent general anesthesia for it. He states that he had a urinary catheter in during the procedure. After getting it taken out he failed a void trial without any urine able to get out. He was told it should get better and he should be able to void later on in the day and was subsequently discharged. He got home around 4 oclock and no matter what he did he was unable to void. He says he takes a medication to help with voiding issues/hesitency/incomplete void however medication reconciliation is not done at the time of this note and no medication is found in existing list. He states with the medication his voiding is controlled. He also complains of some chest pressure and burning at the epigastric area of his chest that has been going on since the procedure. The pain does not radiate and he does not have any nausea, vomiting, palpitations, or diaphoresis. In the ED a jensen catheter was placed and drained 570ml urine. CBC and CMP unremarkable, troponin 1235 initially followed by 1319. Principal Diagnosis Chest pain, urinary retention Elevated troponin Discharge Exam Constitutional WD/WN, vitals as above Respiratory normal respiratory effort, lungs clear to auscultation Cardiovascular RRR, no murmur, no edema Gastrointestinal (Abdomen) normal bowel sounds, soft, nontender, no hepatosplenomegaly Genitourinary Jensen in place draining clear yellow urine Discharge Data Allergies Allergy/AdvReac Type Severity Reaction Status Date / Time tetanus toxoid, adsorbed Allergy Severe ANAPHYLAXIS Verified 11/22/21 18:18 Consultations 07/23/22 01:51 ED Decision to Admit Stat 07/23/22 04:32 Consult Cardiology Routine Ordered Studies ECHO Hospital Course (1) Chest pain: 67 year old male w/ PmHx A fib s/p ablation 07/22/2022 at [place], on Eliquis for A fib, COPD, HLD, HTN, GERD admitted for chest pressure and urinary retention. Chest pressure/Elevated troponin: -New onset chest pressure post ablation. Expected post-ablation. -CXR negative -Troponin peaked at 1500 and pains were mild and ongoing -EKG sinus rhythm 76 with 1st degree AV block, no acute ST elevation/depressions. ECHO without WMAs -Consulted cardiology, appreciate recs. Positional chest pain, not cardiac, trop elevated from ablation procedure -Continue home metoprolol, Eliquis. He is NOT on aspirin at home A fib: -Now in sinus rhythm post ablation. -As above, continue metoprolol and Eliquis, stay on home flecainide until seen by EP Postoperative Urinary Retention: -Patient with past urinary hesitancy/incomplete void issues -Jensen catheter in, draining. -continue Jensen on discharge, start Flomax and scheduled f/u appt with Urology for TOV on Wednesday COPD: -Continue home daily inhalers. GERD: -Continue home omeprazole. HTN: -Continue metoprolol as above. HLD: -Continue home statin. Dispo-stable for dc to home, discussed care with Cardiology (2) Afib: (3) Postoperative urinary retention: (4) COPD (chronic obstructive pulmonary disease): (5) GERD (gastroesophageal reflux disease): (6) Hyperlipidemia: (7) Hypertension: Total Time Total Time Spent Total Time Spent (In Minutes): 35 min Discharge Plan Discharge Items Patient Disposition: Home - Self-Care Reason For Visit: URINARY RETENTION, CHEST PAIN RULE OUT Discharge Diagnosis: Urinary retention, Elevated troponin Chest pain Activity: Resume your previous activity Non-emergency contact: Primary Care Provider, Community Arts Worker and Urologist Call non-emergency contact if: you have any medication questions, your symptoms worsen and your pain is not controlled Follow-up/Referrals: Ricardo Gray, [employer] [Primary Care Provider] - (PLEASE CALL YOUR PRIMARY CARE PROVIDER TO SCHEDULE A DISCHARGE FOLLOW-UP APPOINTMENT WITHIN 7-10 DAYS.) Sunny Krishna MD [Physician] - 07/27/22 9:20 am (Nurse Visit for Void Trial Please arrive 15 minuts prior to appointment time) Diet: Heart Healthy Addtl Attending Provider Instructions: You were admitted overnight for chest pain and an elevated troponin (heart enzyme) which is likely from your recent ablation procedure. You had a catheter placed in your bladder for retention of urine. You will need to follow up with Urology in about 1 week to try to take the catheter out. You should take the medication called Flomax to help shrink the prostate. Follow up with your Community Arts Worker as previously scheduled. Pending Studies at Discharge: No Stand-Alone Forms: My [facility], Smoking Cessation Medications and DC Order Prescriptions: New tamsulosin 0.4 mg Capsule 0.4 mg PO QAM Qty: 14 0RF Continued multivitamin Tablet 1 tab PO QAM atorvastatin 20 mg tablet 20 mg PO QAM omeprazole 20 mg capsule,delayed release(DR/EC) 20 mg PO QAM Eliquis 5 mg tablet 5 mg PO BID Qty: 60 3RF metoprolol succinate [Toprol XL] 25 mg tablet extended release 24 hr 12.5 mg PO QAM albuterol sulfate 90 mcg/actuation Hfa Aerosol Inhaler 1 inh INHALATION HS olodaterol 2.5 mcg/actuation Mist 2 inh INHALATION BID flecainide 100 mg Tablet 100 mg PO Q12H Discharge Orders: Discharge Order (Routine); Ordered 07/23/22 Ordered By: Cami Hernandes Admission Data Admit Date/Time: 07/23/22 01:59 Attending Provider: Cami Hernandes Admit Provider: Sanchez Lew Primary Care Provider: Ricardo Gray Other Providers: James Mendoza ; Dre Byers ; Carlo Florian ; Brayden Martines ; Esa Tejada ; Antwan Farr ; Kd Butt Jr ; Stephen Richardson ; Alexandra Terrell ; Stacia Stephens ; Juan Horowitz ; Jorge A Gates ; Víctor Fairbanks ; Ellie Webber ; Sandra Irwin ; Ravindra Aguila ; Sina Comer ; Esa Encinas V. Coding Level of Care Code 39937 INP/OBS DISCH >30 MIN Diagnoses Chest pain R07.9 Chest pain type: unspecified Afib I48.91 Postoperative urinary retention N99.89; R33.8 COPD (chronic obstructive pulmonary disease) J44.9 GERD (gastroesophageal reflux disease) K21.9 Hyperlipidemia E78.5 Hypertension I10
--- NOTE | 2022-07-23 13:25 | Cardiology Consultation ---
Date of Consultation July 23, 2022 Assessment & Plan (1) Chest pain: (2) Elevated troponin: (3) Afib: (4) S/P ablation of atrial fibrillation: (5) Hypertension: Plan ASSESSMENT/PLAN: 1. Elevated troponin: Could be explained from A-fib ablation performed the day of presentation. Despite intermittently ongoing pain, troponin peaked and has since trended downward. Repeat ECG ordered. Echo with normal wall motion and normal LV systolic function. Had recent ischemic evaluation within the past 6 months which was negative via myocardial perfusion study. 2. Chest pain: Atypical chest pain, described as chronic, stable, and positional. Further ischemic evaluation is not necessary at this time but would consider if chest pain syndrome changes or symptoms are more concerning for angina. 3. Atrial fibrillation s/p ablation: In sinus rhythm. He reports that he is s till on flecainide as per his cupola man. Would resume flecainide at his home dose as instructed by his cupola man. Continue anticoagulation for stroke risk reduction. Close follow-up with electrophysiology. 4. Hypertension: Blood pressure well controlled. 5. Disposition: No further ischemic evaluation recommended at this time. 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 Continue beta-jun, anticoagulation therapy, and antiarrhythmic therapy as outlined by his primary cardiology team. Plan of care discussed with Dr. Hernandes of the primary hospitalist service. Thank you for allowing me to participate in the care of your patient. Please call for any other questions or concerns. Sincerely, Juan Carlos Richardson M.D. History of Present Illness Reason for Consultation: Chest pain, elevated troponin s/p afib ablation Requesting Physician: Dr. Lew Attending Physician: Cami Hernandes MD History of Present Illness Mr. Barrett is a pleasant 67-year-old gentleman with a history significant for atrial fibrillation s/p ablation (07/22/22 at [place]), hypertension, dyslipidemia, and COPD. His primary cardiology care is performed through the [facility]. He underwent A-fib ablation on 07/22/2022 at [place]. Details of his atrial fibrillation are not well known, but he did undergo ablation on 07/22/2022 in [place]. Following the procedure, he had urinary retention. Because of urinary retention, he came to the emergency department. He denies having chest pain that evening prior to presentation. In the emergency department, he had chest pressure located on the right side of his chest and at times the left chest. He states that this is not a new occurrence. He has been experiencing similar symptoms for several months. He states that he has back and chest pressure that has been positional. If he lays in 1 position for prolonged periods of time, he will have this ache/pressure that resolves with repositioning. It also worsens with coughing. He can experience worsening back pain with inspiration but denies pleuritic chest pain. He has been out of bed since the pain started, with no worsening of the discomfort. He states that the pattern that he is experienced while here, is no different than he has been experiencing the past several months. His initial high-sensitivity troponin was elevated at 1235, before peaking at 1592. Despite having intermittent ongoing chest discomfort, the troponin trended downward. He currently is chest pain-free. He does not exercise but before hospitalization, he walks such as at the grocery store. He denies exertional chest pain. He denies shortness of breath, syncope, near syncope, palpitations, edema, or bleeding. Initial history and physical does not mention flecainide, but he states that he takes flecainide at home 100 mg twice daily. He states that he does not take aspirin but has continued with Eliquis and metoprolol succinate 12.5 mg daily. Medication reconciliation mentions different doses of metoprolol and that he takes aspirin. He has had the following studies/procedures: 1. Nuclear stress 03/20/2022: Negative for ischemia. EF 67%. Normal wall motion. Performed for chest pain. 2. Echo 07/23/22: Normal LV size, wall motion, systolic function. EF 60-65%. Mild LVH. Mild AI. Left to right interatrial shunted. Review of systems: As above. Review of systems otherwise negative/unremarkable. Family history: No known premature CAD. He had a sister that underwent possible myomectomy. Another sister with A-fib. Social history: He quit smoking in approximately 2017. He denies alcohol or d rug abuse. He lives with his . 2 children. He lives outside of [place]. He is unaccompanied today. Allergies Allergy/AdvReac Type Severity Reaction Status Date / Time tetanus toxoid, adsorbed Allergy Severe ANAPHYLAXIS Verified 11/22/21 18:18 Home Medications Medication Instructions Recorded Confirmed Type atorvastatin 20 mg tablet 20 mg PO QAM 04/30/20 07/23/22 History multivitamin 1 tab PO QAM 04/30/20 07/23/22 History omeprazole 20 mg capsule,delayed 20 mg PO QAM 04/30/20 07/23/22 History release apixaban 5 mg tablet (Eliquis) 5 mg PO BID #60 tabs 05/01/20 07/23/22 Rx metoprolol succinate 25 mg 12.5 mg PO QAM 08/29/20 07/23/22 History tablet,extended release 24 hr (Toprol XL) albuterol sulfate 90 mcg/actuation 1 inh inhalation HS 11/22/21 07/23/22 History aerosol inhaler olodaterol 2.5 mcg/actuation mist 2 inh inhalation BID 11/22/21 07/23/22 History for inhalation flecainide 100 mg tablet 100 mg PO Q12H 07/23/22 07/23/22 History tamsulosin 0.4 mg capsule 0.4 mg PO QAM #14 caps 07/23/22 07/23/22 Rx Patient History Medical History (Updated 07/23/22 @ 14:16 by Stephen Richardson MD) Acute kidney injury Afib Asthma NO INHALERS, REPORTS D.O.E Atrial fibrillation DX APR 2020> ELIQUIS/TOPROL > FOLLOWS [facility] Bradycardia Chest pain (06/19/13) Difficulty swallowing REASON FOR PROCEDURE GERD (gastroesophageal reflux disease) Hyperlipidemia Hypertension Osteoarthritis Pulmonary nodule Surgical History (Updated 07/23/22 @ 14:16 by Stephen Richardson MD) History of arthroscopy RIGHT WRIST> DUE TO INJURY / LEFT KNEE History of colonoscopy History of esophagogastroduodenoscopy (EGD) History of tonsillectomy S/P ablation of atrial fibrillation Social History Smoking Status: Former smoker Tobacco Type: Cigarettes Cigarettes Per Day: 20; Second Hand Exposure: No; Do You Dip or Chew Tobacco: Yes; Hx Alcohol Use: No Hx Substance Use: No Preferred Language: Bhutanese Communication Ability: Effective Butadiene Convertor Operator Required: No Beliefs That Will Affect Care: None Current Living Situation: Family Feels Safe at Home: Yes Assistive Devices: Hearing Aid - Left Physical Exam Physical Exam: Gen.: No acute distress. Alert and oriented. HEENT: Anicteric sclera. Neck: No JVD. No bruits. Normal carotid upstrokes bilaterally. Cardiac: PMI was nonpalpable. No ventricular heave. Regular. Normal S1-S2. No audible murmurs, rubs, or gallops. Pulmonary: Clear to auscultation bilaterally without wheezes, rales, or rhonchi. Abdomen: Soft, nontender, nondistended, with normoactive bowel sounds. No bruits noted. Extremities: 2+ radial pulses bilaterally. 2+ posterior tibialis pulses bilate rally. No pitting edema or cyanosis. Results & Data Vital Signs (Past 12 Hours) Vital Signs Temp Pulse Pulse Pulse Resp BP BP 07/23/22 11:33 36.5 C 54 L 18 107/53 L 07/23/22 07:00 36.7 C 57 L 14 100/63 07/23/22 07:12 54 L 07/23/22 04:41 59 L 07/23/22 04:33 36.8 C 57 L 18 07/23/22 03:00 54 L 17 107/62 07/23/22 03:00 107/62 07/23/22 01:30 59 L 19 111/68 07/23/22 03:02 55 L Pulse Ox O2 Del Method 07/23/22 11:33 93 Room Air 07/23/22 07:00 93 Room Air 07/23/22 07:12 07/23/22 04:41 07/23/22 04:33 94 Room Air 07/23/22 03:00 93 07/23/22 03:00 07/23/22 01:30 95 07/23/22 03:02 Laboratory Results Laboratory Results - last 24 hr 07/22/22 07/22/22 07/22/22 22:47 22:47 22:47 WBC 9.65 RBC 4.95 Hgb 14.4 Hct 41.9 L MCV 84.6 MCH 29.1 MCHC 34.4 RDW Std Deviation 42.0 RDW Coeff of Zay 13.5 Plt Count 129 L MPV 10.5 Immature Gran % (Auto) 0.3 Neut % (Auto) 86.1 Lymph % (Auto) 6.5 [place] % (Auto) 6.6 Eos % (Auto) 0.2 Baso % (Auto) 0.3 Neut # (Auto) 8.30 H Lymph # (Auto) 0.63 L [place] # (Auto) 0.64 H Eos # (Auto) 0.02 Baso # (Auto) 0.03 Immature Gran # (Auto) 0.03 PT 11.0 INR 1.0 APTT 26.8 PTT Ratio 1.0 Sodium 140 Potassium 4.3 Chloride 109 H Carbon Dioxide 24 Anion Gap 7 BUN 20 Creatinine 1.32 Est Cr Clr Drug Dosing 63.1 Est GFR ( Amer) 63.3 Est GFR (Non-Af Amer) 54.7 BUN/Creatinine Ratio 15.2 Glucose 109 H Calcium 8.8 Total Bilirubin 1.1 H AST 30 ALT 14 Alkaline Phosphatase 95 Troponin I High Sens 1235.2 H* Total Protein 6.2 Albumin 4.0 Globulin 2.2 L Albumin/Globulin Ratio 1.8 Urine Color Urine Appearance Urine pH Ur Specific [place] Urine Protein Urine Glucose (UA) Urine Ketones Urine Blood Urine Nitrite Urine Bilirubin Urine Urobilinogen Ur Leukocyte Esterase SARS-CoV-2, RNA, NAAT 07/23/22 07/23/22 07/23/22 00:13 00:20 01:20 WBC RBC Hgb Hct MCV MCH MCHC RDW Std Deviation RDW Coeff of Zay Plt Count MPV Immature Gran % (Auto) Neut % (Auto) Lymph % (Auto) [place] % (Auto) Eos % (Auto) Baso % (Auto) Neut # (Auto) Lymph # (Auto) [place] # (Auto) Eos # (Auto) Baso # (Auto) Immature Gran # (Auto) PT INR APTT PTT Ratio Sodium Potassium Chloride Carbon Dioxide Anion Gap BUN Creatinine Est Cr Clr Drug Dosing Est GFR ( Amer) Est GFR (Non-Af Amer) BUN/Creatinine Ratio Glucose Calcium Total Bilirubin AST ALT Alkaline Phosphatase Troponin I High Sens 1319.1 H* Total Protein Albumin Globulin Albumin/Globulin Ratio Urine Color Yellow Urine Appearance Clear Urine pH 7.0 Ur Specific [place] 1.018 Urine Protein Negative Urine Glucose (UA) Negative Urine Ketones Negative Urine Blood Negative Urine Nitrite Negative Urine Bilirubin Negative Urine Urobilinogen Negative Ur Leukocyte Esterase Negative SARS-CoV-2, RNA, NAAT NEGATIVE 07/23/22 07/23/22 05:43 12:06 WBC RBC Hgb Hct MCV MCH MCHC RDW Std Deviation RDW Coeff of Zay Plt Count MPV Immature Gran % (Auto) Neut % (Auto) Lymph % (Auto) [place] % (Auto) Eos % (Auto) Baso % (Auto) Neut # (Auto) Lymph # (Auto) [place] # (Auto) Eos # (Auto) Baso # (Auto) Immature Gran # (Auto) PT INR APTT PTT Ratio Sodium Potassium Chloride Carbon Dioxide Anion Gap BUN Creatinine Est Cr Clr Drug Dosing Est GFR ( Amer) Est GFR (Non-Af Amer) BUN/Creatinine Ratio Glucose Calcium Total Bilirubin AST ALT Alkaline Phosphatase Troponin I High Sens 1592.9 H* D 1390.4 H* Total Protein Albumin Globulin Albumin/Globulin Ratio Urine Color Urine Appearance Urine pH Ur Specific [place] Urine Protein Urine Glucose (UA) Urine Ketones Urine Blood Urine Nitrite Urine Bilirubin Urine Urobilinogen Ur Leukocyte Esterase SARS-CoV-2, RNA, NAAT Diagnostic Findings Telemetry personally reviewed: Sinus rhythm. History and physical report reviewed. ECG personally reviewed: ECG 07/22/2022 at 2236: Sinus rhythm with first-degree AV block 76 bpm. LAFB. Poor R wave progression. Echo report reviewed as noted above in HPI. Nuclear stress test reviewed from 03/20/2022 as noted above. Chest x-ray image personally reviewed from 07/23/2022: No infiltrate or pleural effusion noted. Radiology reports no acute process. Medications Administered Current Inpatient Medications Albuterol (Albuterol Hfa 8 Gm Inhaler) 1 puffs INH HS [facility] Stop: 08/22/22 20:59 Apixaban (Apixaban 5 Mg Tablet) 5 mg PO BID [facility] Stop: 08/22/22 08:59 Last Admin: 07/23/22 10:12 Dose: 5 mg Aspirin (Aspirin 81 Mg Ectab) 81 mg PO DAILY [facility] Stop: 08/22/22 08:59 Last Admin: 07/23/22 10:12 Dose: 81 mg Atorvastatin Calcium (Atorvastatin 20 Mg Tab) 20 mg PO QAM [facility] Stop: 08/22/22 08:59 Last Admin: 07/23/22 10:11 Dose: 20 mg Dextrose/Sodium Chloride (D5w And Nss) 1,000 mls @ 80 mls/hr IV .[id number] [facility] Stop: 07/24/22 05:31 Last Admin: 07/23/22 05:02 Dose: 80 mls/hr Metoprolol Succinate (Metoprolol Succ 25mg Ext Rel Tab) [facility]: 08/22/22 08:59 Last Admin: 07/23/22 10:15 Dose: Not Given Nitroglycerin (Nitroglycerin Sl 0.4 Mg/Tab Tab) 0.4 mg SL UD PRN PRN Reason: Chest Pain Stop: 08/22/22 04:31 Olodaterol (Olodaterol Hcl 2.5mcg/Actuation 60 Puffs/Inhaler) 2 puffs INH BID [facility] Stop: 08/22/22 08:59 Last Admin: 07/23/22 10:14 Dose: Not Given Pantoprazole Sodium (Pantoprazole 40 Mg Tab) 40 mg PO [facility] Stop: 08/22/22 08:59 Last Admin: 07/23/22 10:10 Dose: 40 mg Polyethylene Glycol (Polyethylene (Miralax) 17 Gm Pack) 17 gm PO DAILY PRN PRN Reason: Constipation Stop: 08/22/22 04:31 Tamsulosin HCl (Tamsulosin Hcl 0.4 Mg Cap) 0.4 mg PO [facility] Stop: 08/22/22 08:59 Last Admin: 07/23/22 10:13 Dose: 0.4 mg PG Care Time/CCT Total # of Minutes Spent Total Time Spent with Patient: Total time spent is greater than 50% in coordination of care (as documented) at patient's floor/unit and/or counseling patient: Coding Level of Care Code 42098 INT INP/OBS CARE 2/55MIN Diagnoses Chest pain R07.9 Chest pain type: unspecified Elevated troponin R77.8 Afib I48.91 S/P ablation of atrial fibrillation Z98.890; Z86.79 Hypertension I10 (1) Chest pain Chest pain type: unspecified Qualified Code(s): R07.9 - Chest pain, unspecified
--- NOTE | 2022-07-23 20:39 | Billing Data ---
Date of Service July 23, 2022 Coding Level of Care Code 03741 INT INP/OBS CARE
[2022-07-23] MEDS ORDERED: ALBUTEROL HFA 8 GM INHALER INH SCH (21:00)
--- NOTE | 2022-07-23 23:04 | Electrocardiogram Report ---
Test Reason : Blood Pressure : / mmHG Vent. Rate : 076 BPM Atrial Rate : 076 BPM P-R Int : 212 ms QRS Dur : 108 ms QT Int : 414 ms P-R-T Axes : 071 -71 064 degrees QTc Int : 465 ms Sinus rhythm with 1st degree A-V block Left anterior fascicular block Abnormal ECG When compared with ECG of 22-FEB-2022 17:14, Sinus rhythm has replaced Atrial fibrillation Vent. rate has decreased BY 54 BPM Confirmed by Stephen Richardson ([id number]) on 07/23/2022 11:03:40 PM Referred By: REFERRED SELF Confirmed By:Stephen Richardson
--- NOTE | 2022-07-24 05:15 | Electrocardiogram Report ---
Test Reason : Blood Pressure : / mmHG Vent. Rate : 053 BPM Atrial Rate : 053 BPM P-R Int : 210 ms QRS Dur : 110 ms QT Int : 448 ms P-R-T Axes : 065 -55 035 degrees QTc Int : 420 ms Sinus bradycardia with 1st degree A-V block Left axis deviation Cannot rule out Anterior infarct , age undetermined Nonspecific T wave abnormality Abnormal ECG When compared with ECG of 22-JUL-2022 22:36, Nonspecific T wave abnormality now evident in Anterior leads Confirmed by Stephen Richardson ([id number]) on 07/24/2022 5:15:01 AM Referred By: REFERRED SELF Confirmed By:Stephen Richardson
== END 2022-07-23 18:50 | disposition home or self-care (01) | DRG 313 ==
LOC: ED 21:30 → SUATTDRO 07-23 01:59 → 2N 07-23 01:59